=== PATIENT | female | born 1945 | race Caucasian/White ===

== ENCOUNTER 2016-07-28 08:20 | Emergency (ER) | payer MEDICARE, OTHER ==
--- NOTE | 2016-07-28 08:54 | ERPHSYRPT ---
- History of Present Illness Time Seen by Provider: 07/28/16 08:40 Source: EMS, correction records Exam Limitations: clinical condition Patient Subjective Stated Complaint: ems states pt found at [facility] with a 41 blood sugar. ems states pt was administered glucagon per correction staff. repeat accucheck in Er 114. Triage Nursing Assessment: PT PINK, WARM, DRY. ALERT AND ORIENTED X2. 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 SPEACH NORMAL. Physician History: PATIENT WITH HISTORY OF TYPE 2 DIABETES, RECENTLY HOSPITALIZED FOR INFLUENZA A WITH PNEUMONIA DEVELOPED ALTERED MENTAL STATUS AT [facility], HAD ACCUCHECK OF 41, GLUCAGON GIVEN AND PATIENT MUCH MORE ALERT. PATIENT DENIES COMPLAINTS. DENIES, HEADACHE, DYSPNEA, CHEST PAIN, NAUSEA, EMESIS OR DIARRHEA. Timing/Duration: today Severity: moderate Character of Deficits: other (ALTERED MENTAL STATUS) Deficits: bed-ridden, weak Baseline/Normal Cognition: poor alertness Current Cognition: alert oriented x 3 Baseline Gait: unable to walk Associated Symptoms: denies symptoms Allergies/Adverse Reactions: ranitidine Allergy (Verified 07/28/16 08:34) Home Medications: Lisinopril 5 mg [Zestril 5 MG] 5 mg PO [facility] 09/29/12 [History] Metoprolol Succinate 50 mg [Toprol Xl 50 MG] 50 mg PO [facility] 09/29/12 [ History] Montelukast Sodium 10 mg [Singulair 10 MG] 10 mg PO [facility] 09/29/12 [History] Docusate Sodium [Stool Softener] 50 mg PO HS 11/20/12 [History] Insulin Detemir [Levemir] 15 unit SQ [facility] 11/20/12 [History] Diclofenac Sodium [Voltaren] 25 mg PO BID 07/04/13 [History] Acetaminophen 325 mg [Tylenol 325 mg] 650 mg PO Q4HPRN PRN 07/24/16 [ History] Aspirin 81 mg PO DAILY 07/24/16 [History] Bumetanide 1 mg [Bumex 1 mg] 0.5 mg PO QAM 07/24/16 [History] Carbidopa/Levodopa/Entacapone* [Stalevo 150 Tablet] 1 tab PO BID 07/24/16 [ History] Gabapentin 400 mg [Neurontin 400 MG] 400 mg PO BID 07/24/16 [History] Glucagon 1 mg [GlucaGen 1 MG] 1 mg IM UD PRN 07/24/16 [History] Hydrocodone/Acetaminophen [Hydrocodon-Acetaminophen 5-325] 1 tab PO BID [History] Insulin Aspart [NovoLOG Insulin] 1 unit SQ QID PRN PRN 07/24/16 [History] Insulin Detemir [Levemir] 10 unit SQ HS 07/24/16 [History] Polyethylene Glycol 3350 17 gm [Miralax Powder 17GM PACKET] 17 gm PO UD 07/24 [History] Simvastatin 10 mg PO HS 07/24/16 [History] Hx Tetanus, Diphtheria Vaccination/Date Given: Yes (UNKNOWN) Hx Influenza Vaccination/Date Given: Yes Hx Pneumococcal Vaccination/Date Given: Yes Immunizations Up to Date: Yes - Review of Systems Constitutional: No Fever, No Chills Eyes: No Symptoms Ears, Nose, & Throat: No Symptoms Respiratory: No Symptoms, No Cough, No Dyspnea Cardiac: No Symptoms, No Chest Pain, No Edema, No Syncope Abdominal/Gastrointestinal: No Symptoms, No Abdominal Pain, No Nausea, No Vomiting, No Diarrhea Genitourinary Symptoms: No Symptoms, No Dysuria Musculoskeletal: No Symptoms, No Back Pain, No Neck Pain Skin: No Symptoms, No Rash Neurological: Other (CONFUSION), No Dizziness, No Focal Weakness, No Sensory Changes Psychological: No Symptoms Endocrine: No Symptoms All Other Systems: Reviewed and Negative - Past Medical History Pertinent Past Medical History: Yes Neurological History: No Pertinent History, Other ENT History: Cataracts Cardiac History: Arrhythmia, High Cholesterol, Hypertension Respiratory History: COPD Endocrine Medical History: Diabetes Type II Musculoskeletal History: Fractures, Osteoarthritis GI Medical History: No Pertinent History History: No Pertinent History Psycho-Social History: Anxiety Female Reproductive Disorders: No Pertinent History - Past Surgical History Past Surgical History: Yes Neuro Surgical History: No Pertinent History Cardiac: No Pertinent History, Vascular Surgery Respiratory: No Pertinent History Gastrointestinal: No Pertinent History Genitourinary: No Pertinent History Musculoskeletal: Orthopedic Surgery Female Surgical History: No Pertinent History Other Surgical History: cataract surgery on left eye; right hip surgery; left leg vein surgery - Social History Smoking Status: Never smoker Exposure to second hand smoke: No Drug Use: none Patient Lives Alone: No - Female History Hx Now: No - Nursing Vital Signs Nursing Vital Signs: Initial Vital Signs Temperature 94.8 F Temperature Source Rectal Pulse Rate 81 Respiratory Rate 18 Blood Pressure [Right Arm] 137/64 Pain Intensity 0 - [place] Coma Scale Best Eye Response ([place]): (4) open spontaneously Best Verbal Response ([place]): (5) oriented Best Motor Response ([place]): (6) obeys commands [place] Total: 15 - Physical Exam General Appearance: no apparent distress, alert Eye Exam: bilateral eye: PERRL, EOMI Ears, Nose, Throat Exam: normal ENT inspection, moist mucous membranes Neck Exam: normal inspection, non-tender, supple Respiratory: normal breath sounds, lungs clear, airway intact, No respiratory distress Cardiovascular: regular rate/rhythm, No edema Gastrointestinal: soft, No tenderness, No distention Back Exam: normal inspection Extremity Exam: normal inspection, No pedal edema Peripheral Pulses: carotid (R): 2+, carotid (L): 2+, femoral (R): 2+, femoral (L ): 2+, dorsalis-pedis (R): 2+, dorsalis-pedis (L): 2+ 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, 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 Exam: normal hearing, tongue midline Coordination/Gait: normal finger to nose, normal gait Motor/Sensory: no motor deficit, no sensory deficit DTR: bicep (R): 2+, bicep (L): 2+, tricep (R): 2+, tricep (L): 2+, knee (R): 2+ , knee (L): 2+, ankle (R): 2+, ankle (L): 2+ Skin Exam: normal color, warm, dry, No rash SpO2 Interpretation: normal SpO2: 97 Oxygen Delivery: Room Air Ordered Tests: Active Orders 24 hr Category Date Time Status Accucheck STAT Care 07/28/16 08:51 Active Switch Adjuster STAT Care 07/28/16 08:51 Active EKG-ER Only STAT Care 07/28/16 08:51 Active IV Insertion STAT Care 07/28/16 08:51 Active cath [Cath for Specimen-Straight] STAT Care 07/28/16 08:55 Active 1800 Calorie ADA Diet 07/28/16 Lunch Active CBC W DIFF Stat Lab 07/28/16 08:40 Completed CMP Stat Lab 07/28/16 08:40 Completed Manual Differential NC Stat Lab 07/28/16 08:40 Completed UA Stat Lab 07/28/16 08:55 Completed Lab/Rad Data: Laboratory Result Diagrams 07/28/16 08:40 07/28/16 08:40 Laboratory Results 07/28/16 07/28/16 07/28/16 Range/Units 08:55 08:40 08:40 WBC 7.3 (4.0-10.5) K/mm3 RBC 3.92 L (4.1-5.4) M/mm3 Hgb 11.4 L (12.0-16.0) gm/dl Hct 36.0 (35-47) % MCV 91.8 (78-100) fl MCH 29.0 (26-32) pg MCHC 31.7 L (32-36) g/dl RDW 12.5 (11.5-14.0) % Plt Count 183 (150-450) K/mm3 MPV 12.0 H (6-9.5) fl Sodium 139 (136-145) mEq/L Potassium 4.0 (3.5-5.1) mEq/L Chloride 104 (98-107) mEq/L Carbon Dioxide 28.2 (21-32) mEq/L Anion Gap 10.3 (5-15) MEQ/L BUN 19 (9-20) mg/dL Creatinine 0.71 (0.55-1.30) mg/dl Estimated GFR > 60 ML/MIN Glucose 139 H (70-110) MG/DL Calcium 8.6 (8.5-10.1) mg/dL Total Bilirubin 0.4 (0.2-1.0) mg/dL AST 29 (15-37) U/L ALT < 6 L (12-78) U/L Alkaline Phosphatase 108 (46-116) U/L Serum Total Protein 6.2 L (6.4-8.2) gm/dL Albumin 2.5 L (3.4-5.0) g/dL Ur Collection Type CLEAN CATCH Urine Color YELLOW (YELLOW) Urine Appearance CLEAR (CLEAR) Urine pH 6.0 (5-6) Ur Specific [place] 1.020 (1.005-1.025) Urine Protein NEGATIVE (Negative) Urine Glucose (UA) NEGATIVE (NEGATIVE) mg/dL Urine Ketones NEGATIVE (NEGATIVE) Urine Nitrite NEGATIVE (NEGATIVE) Urine Bilirubin NEGATIVE (NEGATIVE) Urine Urobilinogen 0.2 (0-1) mg/dL Urine WBC (Auto) NEGATIVE (NEGATIVE) Urine RBC (Auto) NEGATIVE (0-5) Hansel/ul Specimen Received [id number] - Progress Progress Note: 07/28/16 10:34 PATIENT GIVEN 1800 ADA MEAL, POST ACCUCHECK 185 Counseled pt/family regarding: lab results, diagnosis, need for follow-up - Departure Time of Disposition: 11:00 Departure Disposition: Home Clinical Impression: HYPOGLYCEMIA Condition: Stable Critical Care Time: No Referrals: CUAUHTEMOC DE LA GARZA [Primary Care Provider] - Additional Instructions: FOLLOW ACCUCHECKS AFTER MEALS AND AT BEDTIME. FOLLOWUP WITH YOUR FAMILY PHYSICIAN THIS WEEK. RETURN TO EMERGENCY FOR LOW BLOOD GLUCOSE.
[2016-07-28 08:58] LABS: Mean Cell Volume 91.8 fl (78-100); Platelet Count 183 K/mm3 (150-450); Red Blood Count 3.92 M/mm3 (4.1-5.4); Red Cell Distribution Width 12.5 % (11.5-14.0); White Blood Count 7.3 K/mm3 (4.0-10.5)
[2016-07-28 09:08] LABS: ALBUMIN 2.5 g/dL (3.4-5.0); ALKALINE PHOSPHATASE 108 U/L (46-116); ANION GAP 10.3 MEQ/L (5-15); BILIRUBIN,TOTAL 0.4 mg/dL (0.2-1.0); BLOOD UREA NITROGEN 19 mg/dL (9-20); CHLORIDE 104 mEq/L (98-107); Carbon Dioxide 28.2 mEq/L (21-32); Glucose 139 MG/DL (70-110); SGOT/AST 29 U/L (15-37); SODIUM 139 mEq/L (136-145); Total Protein 6.2 gm/dL (6.4-8.2)
[2016-07-28 09:21] LABS: SGPT/ALT < 6 U/L (12-78)
[2016-07-28 09:32] LABS: Collection Type CLEAN CATCH
[2016-07-28 09:33] LABS: COMPLETE URINE MICROSCOPIC? NO
[2016-07-28 10:38] VITALS: O2SAT 97
[2016-07-28 11:16] VITALS: BP 122/80; PULSE 83
[2016-07-28 11:30] LABS: ANISOCYTOSIS 1+; Poikilocytosis 1+; Total Cells Counted 100
== END 2016-07-28 11:05 ==
LOC: ED 08:20
DX: E11.649 Type 2 diabetes mellitus with hypoglycemia without coma (principal); I10 Essential (primary) hypertension; R41.82 Altered mental status, unspecified; Z79.84 Long term (current) use of oral hypoglycemic drugs; Z79.4 Long term (current) use of insulin
CPT/HCPCS: 36000; 36415; 80053; 81002; 82962; 85025; 93005; 93041; 99284; P9612

== ENCOUNTER 2016-08-06 00:57 | Inpatient (IN) | payer MEDICARE, OTHER ==
[2016-08-06] MEDS ORDERED: FEVERALL 650 MG ONE (01:13)
[2016-08-06] MEDS ORDERED: DUONEB 0.5-3 MG/3 ml Neb IH ONE ×2 (01:24→01:38)
[2016-08-06] MEDS ORDERED: Sodium Chloride 0.9% 1000 ML 1,000 ML IV SCH (01:30)
--- NOTE | 2016-08-06 01:32 | ERPHSYRPT ---
- History of Present Illness Time Seen by Provider: 08/06/16 01:27 Source: patient Exam Limitations: clinical condition Physician History: This is a 71-year-old white female with history of arrhythmia, hyperlipidemia high blood pressure, COPD, diabetes. She is brought from the senior living with complaint that the patient has been having fever she has a cough she's been refusing to eat. Patient has been treated for influenza she has also been treated for influenza, and pneumonia. Past medical history includes cataracts, arrhythmia, hyperlipidemia, high blood pressure, COPD, diabetes, fractures, osteoarthritis, anxiety. Past surgical history includes cataracts, hip surgery on the right, left vein surgery. Timing/Duration: today Severity: moderate Modifying Factors: Improves With: other (patient not eating). Worsens With: eating Associated Symptoms: cough, fever, other (patient not eating at the senior living has a cough), No nausea, No vomiting, No abdominal pain, No shortness of breath, No heartburn, No diaphoresis, No chills, No chest pain, No headaches, No loss of appetite, No malaise, No rash, No syncope, No seizure, No weakness Allergies/Adverse Reactions: ranitidine Allergy (Verified 08/06/16 02:04) Home Medications: Lisinopril 5 mg [Zestril 5 MG] 5 mg PO [facility] 09/29/12 [History] Metoprolol Succinate 50 mg [Toprol Xl 50 MG] 50 mg PO [facility] 09/29/12 [ History] Montelukast Sodium 10 mg [Singulair 10 MG] 10 mg PO [facility] 09/29/12 [History] Docusate Sodium [Stool Softener] 50 mg PO HS 11/20/12 [History] Insulin Detemir [Levemir] 15 unit SQ [facility] 11/20/12 [History] Diclofenac Sodium [Voltaren] 25 mg PO BID 07/04/13 [History] Acetaminophen 325 mg [Tylenol 325 mg] 650 mg PO Q4HPRN PRN 07/24/16 [ History] Aspirin 81 mg PO DAILY 07/24/16 [History] Bumetanide 1 mg [Bumex 1 mg] 0.5 mg PO QAM 07/24/16 [History] Carbidopa/Levodopa/Entacapone* [Stalevo 150 Tablet] 1 tab PO BID 07/24/16 [ History] Gabapentin 400 mg [Neurontin 400 MG] 400 mg PO BID 07/24/16 [History] Glucagon 1 mg [GlucaGen 1 MG] 1 mg IM UD PRN 07/24/16 [History] Hydrocodone/Acetaminophen [Hydrocodon-Acetaminophen 5-325] 1 tab PO BID [History] Insulin Aspart [NovoLOG Insulin] 1 unit SQ QID PRN PRN 07/24/16 [History] Insulin Detemir [Levemir] 10 unit SQ HS 07/24/16 [History] Polyethylene Glycol 3350 17 gm [Miralax Powder 17GM PACKET] 17 gm PO UD 07/24 [History] Simvastatin 10 mg PO HS 07/24/16 [History] Hx Tetanus, Diphtheria Vaccination/Date Given: Yes (UNKNOWN) Hx Influenza Vaccination/Date Given: Yes Hx Pneumococcal Vaccination/Date Given: Yes - Review of Systems Constitutional: Fever, Other (patient not eating at the senior living as a cough) , No Chills, No Fatigue, No Lethargy, No Malaise, No Night Sweats, No Weakness, No Weight Loss Eyes: No Symptoms Ears, Nose, & Throat: No Symptoms, No Ear Pain, No Ear Discharge, No Hearing Changes, No Tinnitus, No Nose Pain, No Nose Congestion, No Nose Discharge, No Sinus Drainage, No Epistaxis, No Mouth Pain, No Mouth Swelling, No Loose Teeth, No Throat Pain, No Throat Swelling, No Hoarse, No Painful Swallowing, No Snoring , No Stridor Respiratory: Cough, No Cyanosis, No Dyspnea, No Dyspnea on Exertion (BYRD), No Stridor, No Wheezing Cardiac: No Chest Pain, No Edema, No Syncope Abdominal/Gastrointestinal: Other (not eating at the senior living), No Abdominal Pain, No Nausea, No Vomiting, No Diarrhea, No Constipation, No Hematemesis, No Hematochezia, No Melena, No Dysphagia, No Appetite Changes Genitourinary Symptoms: No Dysuria Musculoskeletal: No Back Pain, No Neck Pain Skin: No Rash Neurological: No Dizziness, No Focal Weakness, No Sensory Changes Psychological: No Symptoms Endocrine: No Symptoms All Other Systems: Unable due to condition (patient denies complaints patient has obvious cough review of systems from senior living records) - Past Medical History Pertinent Past Medical History: Yes Neurological History: No Pertinent History, Other ENT History: Cataracts Cardiac History: Arrhythmia, High Cholesterol, Hypertension Respiratory History: COPD Endocrine Medical History: Diabetes Type II Musculoskeletal History: Fractures, Osteoarthritis GI Medical History: No Pertinent History History: No Pertinent History Psycho-Social History: Anxiety Female Reproductive Disorders: No Pertinent History - Past Surgical History Past Surgical History: Yes Neuro Surgical History: No Pertinent History Cardiac: No Pertinent History, Vascular Surgery Respiratory: No Pertinent History Gastrointestinal: No Pertinent History Genitourinary: No Pertinent History Musculoskeletal: Orthopedic Surgery Female Surgical History: No Pertinent History Other Surgical History: cataract surgery on left eye; right hip surgery; left leg vein surgery - Social History Smoking Status: Never smoker Exposure to second hand smoke: No Drug Use: none Patient Lives Alone: No - Female History Hx Now: No - Nursing Vital Signs Nursing Vital Signs: Initial Vital Signs Temperature 99.8 F Temperature Source Rectal Pulse Rate 100 Respiratory Rate 20 Blood Pressure [] 105/43 Pain Intensity 0 - Physical Exam General Appearance: other (elderly white to lie on her right side opens eyes and speaks somewhat pale in appearance) Eye Exam: PERRL/EOMI, eyes nml inspection Ears, Nose, Throat Exam: normal ENT inspection, TMs normal, pharynx normal, moist mucous membranes Neck Exam: normal inspection, non-tender, supple, full range of motion Respiratory Exam: diminished breath sounds, rhonchi Cardiovascular Exam: tachycardia (heart tacchycardic without murmer) Gastrointestinal/Abdomen Exam: soft, normal bowel sounds, No tenderness, No mass Back Exam: normal inspection, normal range of motion, No CVA tenderness, No vertebral tenderness Extremity Exam: normal inspection, normal range of motion, pelvis stable Neurologic Exam: cooperative, crm consultant II-XII nml as tested, No alert (patient appears to be somnolent opens eyes and arouses easily), No oriented x 3 ( patient oriented to herself) Skin Exam: pale Lymphatic Exam: No adenopathy SpO2 Interpretation: normal (93%) - Course Nursing assessment & vital signs reviewed: Yes EKG Interpreted by Me: RATE (104 bpm), Sinus Tach, NORMAL AXIS, Other (EKG moderate amount of artifact, sinus tachycardia, 104 bpm, normal axis, no acute ST or T wave changes) - Radiology Exams Chest X-ray Interpretation: Interpreted by me, Other (hyperinflated chest no infiltrates, no pneumothorax) Ordered Tests: Active Orders 24 hr Category Date Time Status Sports Anchor STAT Care 08/06/16 01:24 Completed EKG-ER Only STAT Care 08/06/16 01:24 Active [place] [Catheter-[place]mond] STAT Care 08/06/16 02:21 Active IV Insertion STAT Care 08/06/16 01:42 Active Oxygen-ED Only NASAL CANNULA 2 lpm Care 08/06/16 01:24 Active CHEST 1 VIEW (PORTABLE) Stat Exams 08/06/16 01:25 Taken BLOOD CULTURE Stat Lab 08/06/16 01:50 Received CBC W DIFF Stat Lab 08/06/16 01:40 Completed CMP Stat Lab 08/06/16 01:40 Completed CULTURE,SPUTUM Stat Lab 08/06/16 01:43 Ordered CULTURE,URINE Stat Lab 08/06/16 01:30 Received Lactic Acid Urgent Lab 08/06/16 01:24 Completed Manual Differential NC Stat Lab 08/06/16 01:40 Completed NT PRO BNP Stat Lab 08/06/16 01:40 Completed UA Stat Lab 08/06/16 01:30 Completed VENOUS BLOOD GAS Urgent Lab 08/06/16 01:24 Completed Respiratory Nebulizer STAT RT 08/06/16 01:26 Active Medication Summary Generic Name Dose Route Start Last Admin Trade Name Freq PRN Reason Stop Dose Admin Sodium Chloride 1,000 mls @ 100 mls/hr 08/06/16 01:30 08/06/16 02:07 Sodium Chloride 0.9% 1000 Ml IV 09/05/16 01:29 100 mls/hr .Q10H ABIOLA Administration Ceftriaxone Sodium/Dextrose 50 mls @ 100 mls/hr 08/06/16 03:20 08/06/16 03:21 Rocephin 1 Gm-D5w 50 Ml Bag IV 08/06/16 03:49 100 mls/hr STAT ONE Administration Sodium Chloride 500 mls @ 999 mls/hr 08/06/16 03:21 08/06/16 03:21 Sodium Chloride 0.9% 1000 Ml IV 08/06/16 03:51 999 mls/hr .Q31M STA Administration Discontinued Medications Generic Name Dose Route Start Last Admin Trade Name Freq PRN Reason Stop Dose Admin Acetaminophen Confirm 08/06/16 01:13 Feverall 650 Mg Administered 08/06/16 01:14 Dose 650 mg .ROUTE .STK-MED ONE Albuterol/Ipratropium 3 ml 08/06/16 01:24 08/06/16 01:41 Duoneb 0.5-3 Mg/3 Ml Neb IH 08/06/16 01:25 3 ml STAT ONE Administration Albuterol/Ipratropium Confirm 08/06/16 01:38 Duoneb 0.5-3 Mg/3 Ml Neb Administered 08/06/16 01:39 Dose 3 ml IH .STK-MED ONE Sodium Chloride Confirm 08/06/16 02:06 Sodium Chloride 0.9% 1000 Ml Administered 08/06/16 02:07 Dose 1,000 mls @ ud .ROUTE .STK-MED ONE Lab/Rad Data: Laboratory Result Diagrams 08/06/16 01:40 08/06/16 01:40 Laboratory Results 08/06/16 08/06/16 08/06/16 Range/Units 01:40 01:40 01:40 WBC 14.5 H (4.0-10.5) K/mm3 RBC 3.07 L (4.1-5.4) M/mm3 Hgb 9.0 L (12.0-16.0) gm/dl Hct 28.8 L (35-47) % MCV 93.8 (78-100) fl MCH 29.3 (26-32) pg MCHC 31.3 L (32-36) g/dl RDW 12.9 (11.5-14.0) % Plt Count 269 (150-450) K/mm3 MPV 11.3 H (6-9.5) fl Segmented Neutrophils 88 H (36.0-66.0) % Lymphocytes (Manual) 3 L (24-44) % Monocytes (Manual) 9 (0.0-12.0) % Differential Comment ABNORMAL Platelet Estimate NORMAL (NORMAL) Anisocytosis 1+ VBG pH (7.32-7.42) VBG pCO2 at Pat Temp (42-55) mm/Hg VBG pO2 at Pat Temp (25-40) mm/Hg VBG HCO3 (22-28) meq/L VBG O2 Sat (Dean) (95-100) VBG Base Excess (-2.0-2.0) VBG Hemoglobin VBG Carboxyhemoglobin (0.0-6.9) % T HGB POC Potassium (3.5-5.1) Sodium 136 (136-145) mEq/L Potassium 5.4 H (3.5-5.1) mEq/L Chloride 104 (98-107) mEq/L Carbon Dioxide 21.2 (21-32) mEq/L Anion Gap 16.3 H (5-15) MEQ/L BUN 29 H (9-20) mg/dL Creatinine 1.12 (0.55-1.30) mg/dl Estimated GFR 51 ML/MIN Glucose 292 H (70-110) MG/DL Lactic Acid (0.4-2.0) Calcium 8.0 L (8.5-10.1) mg/dL Total Bilirubin 0.3 (0.2-1.0) mg/dL AST 11 L (15-37) U/L ALT < 6 L (12-78) U/L Alkaline Phosphatase 112 (46-116) U/L NT-Pro-B Natriuret Pep 983 H (0-125) pg/ml Serum Total Protein 5.3 L (6.4-8.2) gm/dL Albumin 2.0 L (3.4-5.0) g/dL Ur Collection Type Urine Color (YELLOW) Urine Appearance (CLEAR) Urine pH (5-6) Ur Specific [place] (1.005-1.025) Urine Protein (Negative) Urine Glucose (UA) (NEGATIVE) mg/dL Urine Ketones (NEGATIVE) Urine Nitrite (NEGATIVE) Urine Bilirubin (NEGATIVE) Urine Urobilinogen (0-1) mg/dL Urine WBC (Auto) (NEGATIVE) Urine RBC (Auto) (0-5) Hansel/ul Specimen Received 08/06/16 08/06/16 Range/Units 01:30 01:24 WBC (4.0-10.5) K/mm3 RBC (4.1-5.4) M/mm3 Hgb (12.0-16.0) gm/dl Hct (35-47) % MCV (78-100) fl MCH (26-32) pg MCHC (32-36) g/dl RDW (11.5-14.0) % Plt Count (150-450) K/mm3 MPV (6-9.5) fl Segmented Neutrophils (36.0-66.0) % Lymphocytes (Manual) (24-44) % Monocytes (Manual) (0.0-12.0) % Differential Comment Platelet Estimate (NORMAL) Anisocytosis VBG pH 7.39 (7.32-7.42) VBG pCO2 at Pat Temp 37 L (42-55) mm/Hg VBG pO2 at Pat Temp 36 (25-40) mm/Hg VBG HCO3 22.4 (22-28) meq/L VBG O2 Sat (Dean) 79.3 L (95-100) VBG Base Excess -2.3 L (-2.0-2.0) VBG Hemoglobin 6.5 L* VBG Carboxyhemoglobin 2.4 (0.0-6.9) % T HGB POC Potassium 5.4 H (3.5-5.1) Sodium (136-145) mEq/L Potassium (3.5-5.1) mEq/L Chloride (98-107) mEq/L Carbon Dioxide (21-32) mEq/L Anion Gap (5-15) MEQ/L BUN (9-20) mg/dL Creatinine (0.55-1.30) mg/dl Estimated GFR ML/MIN Glucose (70-110) MG/DL Lactic Acid 0.9 (0.4-2.0) Calcium (8.5-10.1) mg/dL Total Bilirubin (0.2-1.0) mg/dL AST (15-37) U/L ALT (12-78) U/L Alkaline Phosphatase (46-116) U/L NT-Pro-B Natriuret Pep (0-125) pg/ml Serum Total Protein (6.4-8.2) gm/dL Albumin (3.4-5.0) g/dL Ur Collection Type CATH Urine Color YELLOW (YELLOW) Urine Appearance SLIGHTLY CLOUDY (CLEAR) Urine pH 5.0 (5-6) Ur Specific [place] 1.015 (1.005-1.025) Urine Protein NEGATIVE (Negative) Urine Glucose (UA) NEGATIVE (NEGATIVE) mg/dL Urine Ketones SMALL-15 (NEGATIVE) Urine Nitrite NEGATIVE (NEGATIVE) Urine Bilirubin NEGATIVE (NEGATIVE) Urine Urobilinogen 0.2 (0-1) mg/dL Urine WBC (Auto) NEGATIVE (NEGATIVE) Urine RBC (Auto) NEGATIVE (0-5) Hansel/ul Specimen Received 08/06/16:0130 - Progress Progress: improved Progress Note: 08/06/16 01:33 This is a 71-year-old white female brought from the senior living with complaint of a cough and the fever she has recently been treated for pneumonia and influenza. She apparently has been refusing medications today also not eating. On arrival patient is a somewhat pale in appearance she prefers to lie on her right side she will open her eyes and speak if asked to do so. Patient has a loose cough she has some scattered rales in her lungs and also decreased breath sounds. Patient will follow command she is oriented to herself 08/06/16 03:08 Patient more somnolent. Notified by the patient's nurse that her blood pressure has come down to 83/53 had been 118/57 earlier Patient having diarrhea. Patient's hemoglobin is 9 and 28.8, hemoglobin was 8.9 yesterday BNP is elevated at 983 EKG sinus tach 10 4 bpm normal axis Will give patient IV normal fluid bolus call has been put out to Dr. De La Garza. 08/06/16 03:21 9Patient's blood pressure rechecked by nurses blood pressure now 105/43 pulse is 101 C. difficile cultures have been obtained by nurses and C. difficile was ordered. I've contacted Dr. De La Garza the patient's primary physician she requests patient be put on antibiotics Will put patient on Rocephin Dr. De La Garza will follow-up on the C. difficile cultures Patient will be given a 500 mL normal saline bolus and then turned back down to 100 mils per hour. - Departure Time of Disposition: 03:26 Departure Disposition: Observation (place on observation, ICU, Dr. De La Garza) Clinical Impression: COPD with exacerbation, Weakness Fever Qualifiers: Fever type: unspecified Qualified Code(s): R50.9 - Fever, unspecified Condition: Fair Critical Care Time: No Referrals: CUAUHTEMOC DE LA GARZA [Primary Care Provider] - Instructions: Chronic Obstructive Pulmonary Disease
[2016-08-06 01:56] LABS: Mean Cell Volume 93.8 fl (78-100); Mean Corpuscular Hemoglobin 29.3 pg (26-32); Mean Platelet Volume 11.3 fl (6-9.5); Platelet Count 269 K/mm3 (150-450); Red Blood Count 3.07 M/mm3 (4.1-5.4); Red Cell Distribution Width 12.9 % (11.5-14.0); White Blood Count 14.5 K/mm3 (4.0-10.5)
[2016-08-06 01:59] LABS: Lactic Acid 0.9 (0.4-2.0); VBG BASE EXCESS -2.3 (-2.0-2.0); VBG CARBOXYHEMOGLOBIN 2.4 % T HGB (0.0-6.9); VBG HCO3- 22.4 meq/L (22-28); VBG O2 SATURATION 79.3 (95-100); VBG POTASSIUM 5.4 (3.5-5.1); VBG pH 7.39 (7.32-7.42)
[2016-08-06 02:00] LABS: VBG HEMOGLOBIN 6.5
[2016-08-06] MEDS ORDERED: Sodium Chloride 0.9% 1000 ML 1,000 ML ONE (02:06)
[2016-08-06 02:29] LABS: ALKALINE PHOSPHATASE 112 U/L (46-116); ANION GAP 16.3 MEQ/L (5-15); BILIRUBIN,TOTAL 0.3 mg/dL (0.2-1.0); BLOOD UREA NITROGEN 29 mg/dL (9-20); CHLORIDE 104 mEq/L (98-107); Carbon Dioxide 21.2 mEq/L (21-32); Glucose 292 MG/DL (70-110); Potassium 5.4 mEq/L (3.5-5.1); SGOT/AST 11 U/L (15-37); SODIUM 136 mEq/L (136-145); Total Protein 5.3 gm/dL (6.4-8.2)
[2016-08-06 02:40] LABS: SGPT/ALT < 6 U/L (12-78)
[2016-08-06 02:40] LABS: COMPLETE URINE MICROSCOPIC? NO; Collection Type CATH
[2016-08-06 03:11] LABS: Total Cells Counted 100
[2016-08-06 03:12] LABS: ANISOCYTOSIS 1+; Platelet Estimate NORMAL (NORMAL)
[2016-08-06] MEDS ORDERED: ROCEPHIN 1 Gm-D5w 50 ml Bag** 50 ML IV ONE ×2 (03:20→03:22)
[2016-08-06] MEDS ORDERED: DUONEB 0.5-3 MG/3 ml Neb IH PRN (04:34)
[2016-08-06] MEDS ORDERED: TYLENOL 325 MG PO PRN (04:34)
[2016-08-06] MEDS ORDERED: FEVERALL 650 MG PR ONE (04:53)
[2016-08-06 09:08] LABS: Mean Cell Volume 93.4 fl (78-100); Mean Corpuscular Hemoglobin 28.9 pg (26-32); Mean Platelet Volume 10.8 fl (6-9.5); Platelet Count 261 K/mm3 (150-450); Red Blood Count 3.01 M/mm3 (4.1-5.4); Red Cell Distribution Width 12.9 % (11.5-14.0); White Blood Count 12.2 K/mm3 (4.0-10.5)
[2016-08-06] MEDS: FLAGYL 500 MG IVPB 100 ML IV SCH ×3 (09:08→21:22)
[2016-08-06] MEDS: Sodium Chloride 0.9% 1000 ML 1,000 ML IV SCH (09:08)
--- NOTE | 2016-08-06 09:09 | XRAY ---
Indication: Loss of consciousness. Multiple contiguous axial images obtained through the head without contrast. Comparison: November 21, 2012. Stable age-appropriate global atrophy, mild periventricular degenerative micro-ischemia bilaterally, benign physiologic basal ganglia calcifications, and anatomic variant for cavum septum pellucidum. New 8 mm focus of pontine hypoattenuation without mass effect probable ischemia of uncertain chronicity. No acute intracranial hemorrhage, abnormal extra-axial fluid collection, or mass effect. Bony calvarium intact. Visualized paranasal sinuses and mastoid air cells are essentially clear. Impression: 1. New subcentimeter pontine hypoattenuation, possible ischemia of uncertain chronicity. MRI may yield further information if clinically warranted. 2. Normal age-related changes including atrophy and degenerative micro-ischemia. CT DI 31.36
[2016-08-06 09:35] LABS: ANION GAP 10.7 MEQ/L (5-15); Carbon Dioxide 25.7 mEq/L (21-32); Potassium 4.9 mEq/L (3.5-5.1)
--- NOTE | 2016-08-06 09:42 | XRAY ---
Indication: Cough and diarrhea. Comparison: July 24, 2016. Portable chest unchanged again hyperinflated and clear. Heart and mediastinal structures within normal limits for AP portable technique. No new/acute findings. Impression: Stable nonacute hyperinflated chest.
--- NOTE | 2016-08-06 13:59 | HP ---
HISTORY OF PRESENT ILLNESS: The patient is unable to provide history. The history has been gathered from review of patient's chart and discussion with nursing staff. Shazia Grossman is a 71 year old woman with past medical history of hypertension, coronary artery disease, congestive heart failure, hyperlipidemia, chronic obstructive pulmonary disease, diabetes mellitus, osteoarthritis, chronic back pain and anxiety. She is a resident of [facility] where she was recently treated where she was in her usual stated of health on 08/01/2016 when she was evaluated by me for routine follow up. She did complain of some upper respiratory tract infection/bronchitis symptoms for which she was placed on antibiotics. I was contacted by senior living staff late last night stating that since yesterday evening the patient has been feeling increasingly weaker. Also she has been having some fever and has been refusing to eat. Also they stated that the patient had refused to take all of her evening medications except gabapentin. The patient was transferred to the emergency room where she was noted to have blood pressure 105/46, temperature 101.1F and respiratory rate 20. Also she had reported some diarrhea. After initial work up in emergency room she was treated with normal saline fluid bolus 1 liter, Rocephin 1 gm IV x1, Tylenol 650 mg p.o. x1, albuterol nebulization. Upon evaluation in the emergency room, the patient was noted to be drowsy but arousal, oriented to self per emergency room note. The patient was admitted to ICU for further monitoring and management. Since admission to ICU, she has continued IV fluids, IV antibiotics. She did have some diarrhea. She continued to remain mostly drowsy. Earlier today she underwent repeat labs, additional work, CT. Eventually her mental status had improved some where she was able to wake up better per ICU nursing. At the time of this evaluation she is drowsy but easily arousable when called. Answers simple Yes or No type questions. Denies pain. Denies increased shortness of breath. PAST MEDICAL HISTORY: As noted above. PAST SURGICAL HISTORY: Fracture. Cataract surgery left eye. Right hip surgery. Leg vein surgery. ALLERGIES: RANITIDINE. MEDICATIONS: Current medications were reviewed. FAMILY HISTORY: Noncontributory to current admission. SOCIAL HISTORY: The patient is a resident of a senior living. No history of illicit drug use or alcohol abuse. No history of smoking. REVIEW OF SYSTEMS: Limited due to patient's mental status. However she denies pain or increased shortness of breath. History of fever, generalized weakness, cough, chest congestion for the last few days and also history of diarrhea. History of poor p.o. intake per history from senior living. PHYSICAL EXAMINATION: An elderly woman lying comfortably in bed, not in acute distress. VITAL SIGNS: Blood pressure 87/50, heart rate 97, respiratory rate 11, temperature 99.1F, temperature max 101.1F. HEENT: Pallor is present. NECK: No JVD is present. CVS: S1, S2 present. RESPIRATORY: Breath sounds are bilaterally diminished and clear to auscultation anteriorly. ABDOMEN: Obese, soft, nontender. NEURO: The patient is drowsy but arouses when called. Answers simple Yes or No type questions, follows few simple commands, was able to squeeze my hand some but it appears weaker. She was able to raise the right lower extremity against gravity. EXTREMITIES: Trace edema on bilateral lower extremities. LABORATORY DATA AND TESTS: Labs on admission were notable for CBC with white blood cell 14.5. BMP was notable for potassium 5.4, glucose 292, BUN 29, creatinine 1.12. NT-BNP was 983. Venous blood gas showed pH of 7.39. Lactic acid was 0.9. UA was essentially negative. EKG showed sinus tachycardia, presence of artifact. Labs from today showed CBC with white blood cell 12.1, hemoglobin 8.7, hematocrit 28, PLT 261,000. Today's CMP showed sodium 141, potassium 4.9, chloride 109, bicarb 25.7, glucose 149, BUN 25, creatinine 1.03. Liver function tests were unremarkable. Stool Clostridium difficile is positive. Chest x-ray showed stable nonacute hyperinflated chest. CT of head showed new subcentimeter pontine hypoattenuation possibly ischemia of uncertain chronicity, normal age related changes including atrophy degenerative microischemia. ASSESSMENT: A 71 year old woman with impression: 1) ALTERED MENTAL STATUS. 2) HYPOTENSION. 3) ACUTE BRONCHITIS. 4) RECENT HISTORY OF EXPOSURE TO FLU. 5) HISTORY OF HYPERTENSION/CONGESTIVE HEART FAILURE. 6) DIABETES MELLITUS. 7) CHRONIC BACK PAIN. 8) ANXIETY. 9) CLOSTRIDIUM DIFFICILE COLITIS. PLAN: Will continue IV fluids, broad spectrum IV antibiotics, continue to monitor neurologic status and hemodynamic status closely. Will obtain baseline troponin, echo. MRI has been requested. The patient was started on Flagyl earlier today. Discussed with patients nurse.
[2016-08-06] MEDS: VENELEX OINTMENT TP SCH ×2 (14:17→22:40)
--- NOTE | 2016-08-06 15:51 | XRAY ---
Indication: Loss of consciousness. Brain stem lesion on same-day CT head. Axial MRI brain was performed without contrast using T1, T2, FLAIR, diffusion, and ADC sequences. Comparison: None Several of the sequences are slightly degraded by motion artifact. There is age-appropriate global atrophy and mild bilateral periventricular degenerative micro-ischemia. Small left ganesh lesion follows CSF signal on all sequences favoring remote infarct. No acute intracranial hemorrhage, abnormal extra-axial fluid collection, or mass effect. Fourth ventricle is midline without hydrocephalus. Anatomic variant for cavum septum pellucidum. 7/8 cranial nerve complex bilaterally symmetric. Normal flow-void signal within the major intracerebral circulation. Paranasal sinuses are clear. Impression: 1. Motion artifact. 2. Left ganesh lesion favors remote infarct. 3. Atrophy and degenerative micro-ischemia within normal limits for patient's age. 4. No acute intracranial abnormalities or evidence for evolving large vessel territory stroke.
[2016-08-06] MEDS ORDERED: Glutose 15 GM ORAL GEL PO PRN (16:56)
[2016-08-06] MEDS ORDERED: GlucaGen 1 MG IM PRN (16:56)
[2016-08-06] MEDS ORDERED: D50W 50 ml Abboject IV PRN (16:56)
[2016-08-06] MEDS: ROCEPHIN 1 Gm-D5w 50 ml Bag** 50 ML IV SCH (22:28)
[2016-08-06] MEDS ORDERED: VANCOCIN 1 GM VIAL*** 1 GM in Sodium Chloride 0.9% 250 ML 250 ML IV ONE (23:45)
[2016-08-06] MEDS ORDERED: Vancomycin 1GM/ Ns 250ML*** 250 ML IV ONE (23:49)
[2016-08-07] MEDS: Sodium Chloride 0.9% 1000 ML 1,000 ML IV SCH ×2 (03:02→17:11)
[2016-08-07 05:51] LABS: Mean Cell Volume 94.5 fl (78-100); Mean Corpuscular Hemoglobin 28.7 pg (26-32); Mean Platelet Volume 10.9 fl (6-9.5); Platelet Count 256 K/mm3 (150-450); Red Blood Count 2.89 M/mm3 (4.1-5.4); Red Cell Distribution Width 12.7 % (11.5-14.0); White Blood Count 10.2 K/mm3 (4.0-10.5)
[2016-08-07] MEDS: FLAGYL 500 MG IVPB 100 ML IV SCH ×3 (05:52→23:14)
[2016-08-07 06:02] LABS: ALBUMIN 1.7 g/dL (3.4-5.0); ALKALINE PHOSPHATASE 96 U/L (46-116); ANION GAP 14.2 MEQ/L (5-15); BILIRUBIN,TOTAL 0.2 mg/dL (0.2-1.0); BLOOD UREA NITROGEN 10 mg/dL (9-20); CHLORIDE 109 mEq/L (98-107); Glucose 222 MG/DL (70-110); Potassium 4.5 mEq/L (3.5-5.1); SGOT/AST 10 U/L (15-37); SODIUM 140 mEq/L (136-145); Total Protein 4.6 gm/dL (6.4-8.2)
[2016-08-07 06:50] LABS: SGPT/ALT 11 U/L (12-78)
[2016-08-07] MEDS ORDERED: PHARMACY DOSING REQUIRED: VANCOMYCIN IV ONE (06:57)
[2016-08-07 07:37] LABS: BAND 5 % (0.0-2.0); Eosinophil 1 % (0.00-3.0); Total Cells Counted 100
[2016-08-07 07:38] LABS: Platelet Estimate NORMAL (NORMAL)
[2016-08-07] MEDS: VENELEX OINTMENT TP SCH ×2 (10:14→22:22)
[2016-08-07] MEDS: VANCOCIN 1 GM VIAL*** 1 GM in Sodium Chloride 0.9% 250 ML 250 ML IV SCH ×2 (10:14→23:55)
--- NOTE | 2016-08-07 14:41 | PROG NOTE ---
DATE: 08/07/16 Chart reviewed. Events noted. At the time of this evaluation, the patient is alert, awake, and comfortable. Answer simple questions. Denies pain. Denies increased shortness of breath. VITALS: BP 116/99, heart rate 101, respiratory rate 18, temperature 99.3, temperature maximum 100 degrees Fahrenheit. HEENT: Pallor present. NECK: No JVD present. CVS: S1 and S2 present. RESPIRATORY: Breath sounds bilaterally diminished. ABDOMEN: Soft, nontender. NEURO: She is alert and awake. Answers simple questions. Tremors of both hands (chronic). EXTREMITIES: Reveals no edema on bilateral lower extremities. LABORATORY DATA: Labs from today showed CBC with WBC of 10.2, Hgb 8.3, Hct 27.8, platelets 256, neutrophils 79, bands 5. CMP shows glucose 222. MRI of brain from 08/06/16 showed left ganesh lesion favoring remote infarct, atrophy and degenerative micro-ischemia within normal limits, no acute intracranial abnormalities or evidence of evolving large vessel territory stroke. Echo report is pending. Blood cultures and urine cultures have shown no growth so far. Medications were reviewed. ASSESSMENT: 71 y/o woman with impression: 1. ALTERED MENTAL STATUS - RESOLVED. 2. HYPOTENSION - RESOLVED. 3. ACUTE BRONCHITIS. 4. CLOSTRIDIUM DIFFICILE COLITIS. 5. HISTORY OF HYPERTENSION/CONGESTIVE HEART FAILURE. 6. CHRONIC BACK PAIN. 7. DIABETES MELLITUS. 8. ANXIETY. PLAN: 1. Patient appears to be hemodynamically stable. Will cut back on IV fluids. 2. Continue broad spectrum IV antibiotics. 3. Neurologically, she appears to have improved. Continue to monitor neurological status. Also, MRI was negative for acute changes. As noted. 4. Speech Therapy has advised patient to stay NPO for now and modified barium swallow has been ordered for tomorrow. Will continue to hold PO medications/feeding until the results of those are obtained. 5. Continue to follow-up lab cultures. Discussed with patient's nurse, Lara.
[2016-08-07] MEDS: ROCEPHIN 1 Gm-D5w 50 ml Bag** 50 ML IV SCH (22:18)
[2016-08-07] MEDS: NovoLOG Insulin SQ PRN (23:29)
[2016-08-08] MEDS: FLAGYL 500 MG IVPB 100 ML IV SCH ×3 (06:18→23:39)
[2016-08-08] MEDS: NovoLOG Insulin SQ PRN ×4 (08:21→22:37)
[2016-08-08] MEDS ORDERED: TROUGH DRUG LEVELS IJ ONE (09:30)
[2016-08-08] MEDS: VANCOCIN 1 GM VIAL*** 1 GM in Sodium Chloride 0.9% 250 ML 250 ML IV SCH (10:29)
[2016-08-08] MEDS: VENELEX OINTMENT TP SCH ×2 (10:38→22:44)
--- NOTE | 2016-08-08 11:12 | PROG NOTE ---
DATE: 08/08/16 Chart reviewed. Events noted. Attempt was made to feed patient earlier today. However, she did have difficulty with swallowing. Her barium swallow is still awaited. At the time of this evaluation, she is alert, awake, and comfortable. Denies complaints. VITALS: BP 128/62, heart rate 109, respiratory rate 20, temperature 97.8, O2 saturations 100% on 2 liters. HEENT: Pallor is present. NECK: No JVD is present. CVS: S1 and S2 present. RESPIRATORY: Breath sounds bilaterally diminished and clear to auscultation anteriorly. ABDOMEN: Soft, nontender. NEURO: She is alert and awake. Answers simple questions. Tremors of both hands (chronic). EXTREMITIES: Reveals no edema on bilateral lower extremities. LABORATORY DATA: There were no new labs today. Blood culture from 08/06/16 was reported to grow gram positive cocci in pairs in 1 out of 2 sets. Second blood culture is negative. Urine culture has revealed no growth so far. Medications were reviewed. ASSESSMENT AND PLAN: 71 y/o woman with impression: 1. ACUTE BRONCHITIS. 2. CLOSTRIDIUM DIFFICILE COLITIS. 3. QUESTIONABLE GRAM POSITIVE BACTEREMIA. 4. HYPERTENSION/CONGESTIVE HEART FAILURE. 5. CHRONIC BACK PAIN. 6. DIABETES MELLITUS. 7. ANXIETY. PLAN: 1. Will follow blood cultures. If final cultures remain negative, will discontinue vancomycin. Continue other antibiotics per current management plan. 2. Patient seems to be hemodynamically stable. Will obtain follow-up labs in AM. 3. Likely discharge back to [facility] in the next 1-2 days if continues to improve. 4. Will follow-up barium swallow. Discussed with patient. She seems to be in understanding. Discussed with patients nurseVanna.
--- NOTE | 2016-08-08 11:57 | XRAY ---
Indication: Dysphagia. Modified barium swallow study was performed by the Department of speech therapy with fluoroscopic assistance provided. Patient ingested multiple consistencies of liquids. Full report and recommendations will be reported separately. Approximately 1 minute 27 seconds fluoroscopy used.
[2016-08-08] MEDS: ROCEPHIN 1 Gm-D5w 50 ml Bag** 50 ML IV SCH (22:37)
[2016-08-09] MEDS: VANCOCIN 1 GM VIAL*** 1 GM in Sodium Chloride 0.9% 250 ML 250 ML IV SCH ×2 (00:59→08:48)
[2016-08-09 05:55] LABS: Mean Platelet Volume 11.1 fl (6-9.5); Platelet Count 277 K/mm3 (150-450); Red Blood Count 2.99 M/mm3 (4.1-5.4); Red Cell Distribution Width 12.9 % (11.5-14.0); White Blood Count 14.7 K/mm3 (4.0-10.5)
[2016-08-09] MEDS: FLAGYL 500 MG IVPB 100 ML IV SCH ×3 (05:55→22:47)
[2016-08-09 06:25] LABS: ALBUMIN 1.9 g/dL (3.4-5.0); ANION GAP 26.4 MEQ/L (5-15); BILIRUBIN,TOTAL 0.3 mg/dL (0.2-1.0); Total Protein 4.9 gm/dL (6.4-8.2)
[2016-08-09 07:22] LABS: Carbon Dioxide 7.7 mEq/L (21-32)
[2016-08-09] MEDS: Sodium Chloride 0.9% 1000 ML 1,000 ML IV SCH ×2 (08:46→14:27)
[2016-08-09] MEDS: VENELEX OINTMENT TP SCH ×2 (08:46→22:47)
[2016-08-09] MEDS: NovoLOG Insulin SQ PRN ×2 (08:47→11:45)
[2016-08-09 11:50] LABS: Potassium 4.5 mEq/L (3.5-5.1)
[2016-08-09 11:56] LABS: Carbon Dioxide 9.2 mEq/L (21-32)
[2016-08-09 13:22] LABS: A-aADO2 40; ARTERIAL BLOOD GAS BASE EXCESS -16.3 (-2.0-2.0); ARTERIAL BLOOD GAS FIO2 24 %; ARTERIAL BLOOD GAS PO2 106 mmHg (75-100); ARTERIAL BLOOD GAS pH 7.26 (7.35-7.45)
--- NOTE | 2016-08-09 16:08 | ECHO ---
DATE: 08/06/16 A transthoracic echocardiograph examination with color Doppler study was done. INDICATION: Shortness of breath, increased NT Pro BNP. IMPRESSION: 1. NO REGIONAL WALL MOTION ABNORMALITY WITH ESTIMATED GLOBAL LEFT VENTRICULAR EJECTION FRACTION OF 60%. 2. MILD TRICUSPID REGURGITATION WITH RIGHT VENTRICULAR SYSTOLIC PRESSURE OF 45 MM OF MERCURY SUGGESTIVE OF MILD TO MODERATE PULMONARY HYPERTENSION. 3. TRACE MITRAL REGURGITATION. 4. LEFT VENTRICULAR HYPERTROPHY. 5. LEFT ATRIAL ENLARGEMENT. The left ventricle was visualized and demonstrated adequate motion of all the segments with estimated global left ventricular ejection fraction of 60%. There is mild left ventricular hypertrophy. The mitral valve was seen and this opens adequately. There is trace mitral regurgitation. The left atrium is mildly enlarged. The aortic valve opens adequately. The right-sided chambers are normal. There is mild tricuspid regurgitation with right ventricular systolic pressure of 45 mm Hg suggestive of mild to moderate pulmonary hypertension.
[2016-08-09 20:34] LABS: ANION GAP 21.6 MEQ/L (5-15); Carbon Dioxide 16.2 mEq/L (21-32); Potassium 4.3 mEq/L (3.5-5.1)
[2016-08-09] MEDS ORDERED: FEVERALL 650 MG PR PRN (20:57)
[2016-08-09] MEDS ORDERED: BUMEX 1 MG IV ONE (21:00)
[2016-08-09] MEDS: Zosyn 3.375GM/100 Ml D5W 100 ML IV SCH (21:13)
--- NOTE | 2016-08-09 22:13 | XRAY ---
Indication: Altered mental status. Multiple contiguous axial images obtained through the head without contrast. Comparison: August 06, 2016. Study limited due to motion artifact. Grossly stable global atrophy, mild periventricular degenerative microischemia, brainstem remote infarct, and cavum septum pellucidum. No acute intracranial hemorrhage, abnormal extra-axial fluid collection, or mass effect. Fourth ventricle is midline. Bony calvarium intact. Visualized paranasal sinuses and mastoid air cells are clear. Impression: Motion artifact. Grossly stable nonacute senile brain. Comment: Preliminary interpretation was made by [facility]. No critical discrepancy. CTDI 71.01
--- NOTE | 2016-08-09 22:17 | XRAY ---
Indication: Low-grade fever. Comparison: August 06, 2016. Portable chest unchanged again hyperinflated and clear. Heart is not enlarged for AP portable technique. No new/acute cardiopulmonary findings. Comment: Preliminary interpretation was made by [facility]. No discrepancy.
[2016-08-10] MEDS: NOVOLIN R INSULIN (FOR DRIPS)** 100 UNITS in Sodium Chloride 0.9% 100 ML IVPB 100 ML IV PRN (01:09)
[2016-08-10] MEDS: Zosyn 3.375GM/100 Ml D5W 100 ML IV SCH ×5 (04:10→21:53)
[2016-08-10] MEDS: FLAGYL 500 MG IVPB 100 ML IV SCH ×3 (05:17→21:53)
[2016-08-10 06:29] LABS: Mean Corpuscular Hemoglobin 28.9 pg (26-32); Mean Platelet Volume 10.1 fl (6-9.5); Platelet Count 265 K/mm3 (150-450); Red Blood Count 2.87 M/mm3 (4.1-5.4); Red Cell Distribution Width 13.5 % (11.5-14.0); White Blood Count 16.3 K/mm3 (4.0-10.5)
[2016-08-10 06:42] LABS: ALBUMIN 1.8 g/dL (3.4-5.0); ALKALINE PHOSPHATASE 94 U/L (46-116); ANION GAP 19.7 MEQ/L (5-15); BILIRUBIN,TOTAL 0.3 mg/dL (0.2-1.0); BLOOD UREA NITROGEN 18 mg/dL (9-20); CHLORIDE 116 mEq/L (98-107); Glucose 216 MG/DL (70-110); Potassium 3.5 mEq/L (3.5-5.1); SGOT/AST 9 U/L (15-37); SODIUM 149 mEq/L (136-145); Total Protein 4.3 gm/dL (6.4-8.2)
[2016-08-10 07:04] LABS: SGPT/ALT < 6 U/L (12-78)
[2016-08-10] MEDS: Sodium Chloride 0.9% 1000 ML 1,000 ML IV SCH (08:34)
--- NOTE | 2016-08-10 08:36 | PCM.NOTE ---
Date and Time: 08/10/16829 Subjective Assessment: Patient is sleeping comfortably, - Review of Systems Constitutional: No Fever, No Chills Eyes: No Symptoms Ears, Nose, & Throat: No Symptoms Respiratory: No Cough, No Short Of Breath Cardiac: No Chest Pain, No Edema, No Syncope Abdominal/Gastrointestinal: No Abdominal Pain, No Nausea, No Vomiting, No Diarrhea Genitourinary Symptoms: No Dysuria Musculoskeletal: No Back Pain, No Neck Pain Skin: No Rash Neurological: No Dizziness, No Focal Weakness, No Sensory Changes Psychological: No Symptoms Endocrine: No Symptoms Hematologic/Lymphatic: No Symptoms Immunological/Allergic: No Symptoms Objective Exam General Appearance: no apparent distress, alert Neurologic Exam: alert, oriented x 3, cooperative, normal mood/affect, nml cerebellar function, sensation nml, No motor deficits Skin Exam: normal color, warm, dry Eye Exam: PERRL, EOMI, eyes nml inspection Ears, Nose, Throat Exam: normal ENT inspection, pharynx normal, moist mucous membranes Neck Exam: normal inspection, non-tender, supple, full range of motion Respiratory Exam: normal breath sounds, lungs clear, No respiratory distress Cardiovascular Exam: regular rate/rhythm, normal heart sounds Gastrointestinal/Abdomen Exam: soft, No tenderness, No mass Extremity Exam: normal inspection, normal range of motion Back Exam: normal inspection, normal range of motion, No CVA tenderness, No vertebral tenderness Pelvic Exam: deferred Rectal Exam: deferred OBJECTIVE DATA Vital Signs: Vital Signs - 24 hr Temp Pulse Resp BP Pulse Ox 08/10/16 06:00 97 H 18 131/66 97 08/10/16 05:00 96 H 16 08/10/16 04:00 98.8 F 96 H 18 143/96 99 08/10/16 00:00 98.4 F 110 H 16 130/59 99 08/09/16 22:00 100 H 153/58 99 08/09/16 20:00 99.4 F 104 H 16 167/95 99 08/09/16 16:00 99.5 F 92 H 15 155/83 95 08/09/16 14:17 99 08/09/16 12:00 99.9 F 113 H 24 124/54 100 08/09/16 08:00 18 08/09/16 07:33 99.8 F 121 H 25 H 146/100 Oxygen-Last 24 hours O2 Percentage 2 Liters = 28% O2 Percentage 2 Liters = 28% O2 Percentage 2 Liters = 28% O2 Percentage 2 Liters = 28% O2 Percentage 2 Liters = 28% O2 Percentage 2 Liters = 28% O2 Percentage 1 Liter = 24% O2 Percentage 1 Liter = 24% Pain Assessment - Last Documented Pain Scale Used [facility] Intake and Output: Intake & Output 08/07/16 08/08/16 08/09/16 08/10/16 11:59 11:59 11:59 12:59 Intake Total 1632 1692 1511 1020 Output Total 1300 750 950 950 Balance 332 942 561 70 Weight 65.9 kg 66.905 kg 68.039 kg 64.4 kg Lab Results: Accuchecks Date 08/10/16 Date 08/10/16 Date 08/10/16 Date 08/10/16 Date 08/10/16 Date 08/10/16 Date 08/09/16 Date 08/09/16 Date 08/09/16 Time 07:00 Time 06:00 Time 05:03 Time 04:00 Time 03:00 Time 00:10 Time 22:17 Time 17:06 Time 11:30 Accucheck Value: 174 Accucheck Value: 196 Accucheck Value: 246 Accucheck Value: 240 Accucheck Value: 285 Accucheck Value: 280 Accucheck Value: 207 Accucheck Value: 176 Accucheck Value: 319 Lab Results-Last 24 Hours 08/09/16 08/09/16 08/09/16 Range/Units 10:36 11:08 11:25 WBC (4.0-10.5) K/mm3 RBC (4.1-5.4) M/mm3 Hgb (12.0-16.0) gm/dl Hct (35-47) % MCV (78-100) fl MCH (26-32) pg MCHC (32-36) g/dl RDW (11.5-14.0) % Plt Count (150-450) K/mm3 MPV (6-9.5) fl Puncture Site RIGHT BRACHIAL pCO2 20 L* (35-45) mmHg pO2 106 H (75-100) mmHg Base Excess -16.3 L (-2.0-2.0) O2 Saturation 95.5 (94-100) g/dF ABG pH 7.26 L (7.35-7.45) ABG HCO3 9.0 L* (22-28) ABG O2 Sat (Measured) 97.0 (95-100) % Santo Test NOT APPLICABLE A-a Gradient 40 a/A Ratio 0.73 Hemoglobin 9.2 Carboxyhemoglobin 0.0 (0.0-6.9) % THgb Methemoglobin 1.4 (1.4-1.5) % Potassium 4.6 4.5 (3.5-5.1) Temperature 37.0 C POC O2 Flow Rate 24 % Sodium 144 (136-145) mEq/L Chloride 110 H (98-107) mEq/L Carbon Dioxide 9.2 L* (21-32) mEq/L Anion Gap 30.0 H (5-15) MEQ/L BUN 14 (9-20) mg/dL Creatinine 1.72 H (0.55-1.30) mg/dl Estimated GFR 31 ML/MIN Glucose 322 H (70-110) MG/DL Lactic Acid 1.1 (0.4-2.0) Calcium 8.1 L (8.5-10.1) mg/dL Total Bilirubin (0.2-1.0) mg/dL AST (15-37) U/L ALT (12-78) U/L Alkaline Phosphatase (46-116) U/L Serum Total Protein (6.4-8.2) gm/dL Albumin (3.4-5.0) g/dL Random Vancomycin (10.0-20.0) UG/ML 08/09/16 08/10/16 08/10/16 Range/Units 20:11 06:00 06:00 WBC 16.3 H (4.0-10.5) K/mm3 RBC 2.87 L (4.1-5.4) M/mm3 Hgb 8.3 L (12.0-16.0) gm/dl Hct 26.7 L (35-47) % MCV 93.0 (78-100) fl MCH 28.9 (26-32) pg MCHC 31.1 L (32-36) g/dl RDW 13.5 (11.5-14.0) % Plt Count 265 (150-450) K/mm3 MPV 10.1 H (6-9.5) fl Puncture Site pCO2 (35-45) mmHg pO2 (75-100) mmHg Base Excess (-2.0-2.0) O2 Saturation (94-100) g/dF ABG pH (7.35-7.45) ABG HCO3 (22-28) ABG O2 Sat (Measured) (95-100) % Santo Test A-a Gradient a/A Ratio Hemoglobin Carboxyhemoglobin (0.0-6.9) % THgb Methemoglobin (1.4-1.5) % Potassium 4.3 (3.5-5.1) Temperature C POC O2 Flow Rate % Sodium 146 H (136-145) mEq/L Chloride 114 H (98-107) mEq/L Carbon Dioxide 16.2 L (21-32) mEq/L Anion Gap 21.6 H (5-15) MEQ/L BUN 15 (9-20) mg/dL Creatinine 2.06 H (0.55-1.30) mg/dl Estimated GFR 25 ML/MIN Glucose 181 H (70-110) MG/DL Lactic Acid (0.4-2.0) Calcium 8.4 L (8.5-10.1) mg/dL Total Bilirubin (0.2-1.0) mg/dL AST (15-37) U/L ALT (12-78) U/L Alkaline Phosphatase (46-116) U/L Serum Total Protein (6.4-8.2) gm/dL Albumin (3.4-5.0) g/dL Random Vancomycin 35.6 H* (10.0-20.0) UG/ML 08/10/16 Range/Units 06:00 WBC (4.0-10.5) K/mm3 RBC (4.1-5.4) M/mm3 Hgb (12.0-16.0) gm/dl Hct (35-47) % MCV (78-100) fl MCH (26-32) pg MCHC (32-36) g/dl RDW (11.5-14.0) % Plt Count (150-450) K/mm3 MPV (6-9.5) fl Puncture Site pCO2 (35-45) mmHg pO2 (75-100) mmHg Base Excess (-2.0-2.0) O2 Saturation (94-100) g/dF ABG pH (7.35-7.45) ABG HCO3 (22-28) ABG O2 Sat (Measured) (95-100) % Santo Test A-a Gradient a/A Ratio Hemoglobin Carboxyhemoglobin (0.0-6.9) % THgb Methemoglobin (1.4-1.5) % Potassium 3.5 (3.5-5.1) Temperature C POC O2 Flow Rate % Sodium 149 H (136-145) mEq/L Chloride 116 H (98-107) mEq/L Carbon Dioxide 17.0 L (21-32) mEq/L Anion Gap 19.7 H (5-15) MEQ/L BUN 18 (9-20) mg/dL Creatinine 2.47 H (0.55-1.30) mg/dl Estimated GFR 20 ML/MIN Glucose 216 H (70-110) MG/DL Lactic Acid (0.4-2.0) Calcium 8.3 L (8.5-10.1) mg/dL Total Bilirubin 0.3 (0.2-1.0) mg/dL AST 9 L (15-37) U/L ALT < 6 L (12-78) U/L Alkaline Phosphatase 94 (46-116) U/L Serum Total Protein 4.3 L (6.4-8.2) gm/dL Albumin 1.8 L (3.4-5.0) g/dL Random Vancomycin (10.0-20.0) UG/ML Radiology Exams: Radiology Procedures Category Date Time Status CHEST 1 VIEW (PORTABLE) Routine Exams 08/09/16 17:21 Completed HEAD WITHOUT CONTRAST [CT] Stat Exams 08/09/16 17:17 Completed MODIFIED BARIUM SWALLOW EXAM Routine Exams 08/08/16 13:00 Completed Multi-Disciplinary Progress Notes: Multi-Disciplinary Progress Notes 08/09/16 13:55 Pharmacy Note by Milind Todd VANCOMYCIN DOSING NOTE CREATININE UP TO 1.72 FOR EST CREATININE CLEARANCE 31 ML/MIN WILL HOLD EVENING DOSE OF VANCOMYCIN AND CHECK LEVEL AM OF 08/10/16 Initialized on 08/09/16 13:55 - END OF NOTE Assessment/Plan (1) Bacteremia Current Visit: Yes Status: Acute Assessment & Plan: Chief Complaint Diagnosis dysphagia Allergies Allergy/AdvReac Type Severity Reaction Status Date / Time ranitidine Allergy Verified 08/06/16 02:04 Vital Signs (Last 24 hours) Temp Pulse Resp BP Pulse Ox 08/10/16 06:00 97 H 18 131/66 97 03/12/17 05:00 96 H 16 08/10/16 04:00 98.8 F 96 H 18 143/96 99 08/10/16 00:00 98.4 F 110 H 16 130/59 99 08/09/16 22:00 100 H 153/58 99 08/09/16 20:00 99.4 F 104 H 16 167/95 99 08/09/16 16:00 99.5 F 92 H 15 155/83 95 08/09/16 14:17 99 08/09/16 12:00 99.9 F 113 H 24 124/54 100 08/09/16 08:00 18 08/09/16 07:33 99.8 F 121 H 25 H 146/100 Home Medications Medication Instructions Recorded Confirmed Last Taken Type Cephalexin Mh 250 mg [Keflex 250 250 mg PO TID 08/06/16 08/06/16 Unknown History mg] Guaifenesin/Codeine Phosphate 5 ml PO Q6H PRN PRN 08/06/16 08/06/16 Unknown History [Guaiatussin AC Liquid] Na Phos,M-B/Na Phos,Di-Ba [Fleet 118 ml RC DAILY PRN PRN 08/06/16 08/06/16 Unknown History Enema] Current Medications Generic Name Dose Route Start Last Admin Trade Name Freq PRN Reason Stop Dose Admin Acetaminophen 650 mg 08/06/16 04:34 Tylenol 325 Mg PO 09/05/16 04:33 Q4H PRN PRN PAIN AND/OR FEVER Acetaminophen 650 mg 08/09/16 20:57 Feverall 650 Mg KS 09/08/16 20:56 Q6HPRN PRN PAIN AND/OR FEVER Albuterol/Ipratropium 3 ml 08/06/16 04:34 Duoneb 0.5-3 Mg/3 Ml Neb IH 09/05/16 04:33 Q4HPRN PRN SHORTNESS OF BREATH/WHEEZING Dextrose 25 ml 08/06/16 16:56 D50w 50 Ml Abboject IV 09/05/16 16:55 UD PRN Glucagon 1 mg 08/06/16 16:56 Glucagen 1 Mg IM 09/05/16 16:55 UD PRN Glucose 15 gm 08/06/16 16:56 Glutose 15 Gm Oral Gel PO 09/05/16 16:55 UD PRN Sodium Chloride 1,000 mls @ 100 mls/hr 08/06/16 04:34 08/09/16 14:27 Sodium Chloride 0.9% 1000 Ml IV 09/05/16 04:33 40 mls/hr .Q10H ABIOLA Administration Metronidazole 100 mls @ 100 mls/hr 08/06/16 09:00 08/10/16 05:17 Flagyl 500 Mg Ivpb IV 09/05/16 08:59 100 mls/hr Q8HT ABIOLA Administration Insulin Human Regular 100 101 mls @ 2 mls/hr 08/09/16 17:17 08/10/16 01:09 units/ Sodium Chloride IV 09/08/16 17:16 2 mls/hr .Q24H PRN Administration HYPERGLYCEMIA Protocol Titrate Piperacillin Sod/Tazobactam Sod 100 mls @ 100 mls/hr 08/10/16 14:00 Zosyn 3.375gm/100 Ml D5w IV 09/08/16 20:59 Q8HT ABIOLA Discontinued Medications Generic Name Dose Route Start Last Admin Trade Name Freq PRN Reason Stop Dose Admin Acetaminophen Confirm 08/06/16 01:13 Feverall 650 Mg Administered 08/06/16 01:14 Dose 650 mg .ROUTE .STK-MED ONE Acetaminophen 650 mg 08/06/16 04:53 08/06/16 01:15 Feverall 650 Mg KS 08/06/16 04:54 650 mg STAT ONE Administration Albuterol/Ipratropium 3 ml 08/06/16 01:24 08/06/16 01:41 Duoneb 0.5-3 Mg/3 Ml Neb IH 08/06/16 01:25 3 ml STAT ONE Administration Albuterol/Ipratropium Confirm 08/06/16 01:38 Duoneb 0.5-3 Mg/3 Ml Neb Administered 08/06/16 01:39 Dose 3 ml IH .STK-MED ONE Bumetanide 1 mg 08/09/16 21:00 08/09/16 21:13 Bumex 1 Mg IV 08/09/16 21:01 1 mg STAT ONE Administration Sodium Chloride 1,000 mls @ 100 mls/hr 08/06/16 01:30 08/06/16 02:07 Sodium Chloride 0.9% 1000 Ml IV 09/05/16 01:29 100 mls/hr .Q10H ABIOLA Administration Sodium Chloride Confirm 08/06/16 02:06 Sodium Chloride 0.9% 1000 Ml Administered 08/06/16 02:07 Dose 1,000 mls @ ud .ROUTE .STK-MED ONE Ceftriaxone Sodium/Dextrose 50 mls @ 100 mls/hr 08/06/16 03:20 08/06/16 03:21 Rocephin 1 Gm-D5w 50 Ml Bag IV 08/06/16 03:49 100 mls/hr STAT ONE Administration Sodium Chloride 500 mls @ 999 mls/hr 08/06/16 03:21 08/06/16 03:21 Sodium Chloride 0.9% 1000 Ml IV 08/06/16 03:51 999 mls/hr .Q31M STA Administration Ceftriaxone Sodium/Dextrose Confirm 08/06/16 03:22 Rocephin 1 Gm-D5w 50 Ml Bag Administered 08/06/16 03:23 Dose 50 mls @ ud IV .STK-MED ONE Ceftriaxone Sodium/Dextrose 50 mls @ 100 mls/hr 08/06/16 22:00 08/08/16 22:37 Rocephin 1 Gm-D5w 50 Ml Bag IV 09/05/16 21:59 100 mls/hr Q24H22 ABIOLA Administration Vancomycin HCl 1 gm/ Sodium 250 mls @ 167 mls/hr 08/06/16 23:45 08/07/16 00: 20 Chloride IV 08/07/16 01:14 167 mls/hr ONCE ONE Administration Vancomycin HCl Confirm 08/06/16 23:49 Vancomycin 1gm/ Ns 250ml Administered 08/06/16 23:50 Dose 250 mls @ ud IV .STK-MED ONE Vancomycin HCl 1 gm/ Sodium 250 mls @ 167 mls/hr 08/07/16 10:00 08/09/16 08: 48 Chloride IV 08/09/16 16:00 167 mls/hr Q12H ABIOLA Administration Piperacillin Sod/Tazobactam Sod 100 mls @ 100 mls/hr 08/09/16 21:00 08/10/16 04:28 Zosyn 3.375gm/100 Ml D5w IV 09/08/16 20:59 100 mls/hr Q6HT ABIOLA Administration Insulin Aspart 0 unit 08/06/16 04:34 08/09/16 11:45 Novolog Insulin SQ 09/05/16 04:33 6 unit UD PRN Administration HYPERGLYCEMIA Non-Formulary Medication 1 each 08/07/16 06:57 08/07/16 10:14 Pharmacy Dosing Required: Vancomycin IV 08/07/16 06:58 1 each STAT ONE Administration Intake & Output (Last 24 hours) 08/07/16 08/08/16 08/09/16 08/10/16 11:59 11:59 11:59 12:59 Intake Total 1632 1692 1511 1020 Output Total 1300 750 950 950 Balance 332 942 561 70 Weight 65.9 kg 66.905 kg 68.039 kg 64.4 kg Microbiology Results (Last 24 hours) 08/06/16 01:50 Blood - Final Not Reportable 08/06/16 01:50 Blood Blood Culture - Final NO GROWTH 08/06/16 01:40 Blood - Final 08/06/16 01:40 Blood Blood Culture - Final Enterococcus Faecium Laboratory Results (Last 24 hours) 08/10/16 08/10/16 08/10/16 06:00 06:00 06:00 WBC 16.3 H RBC 2.87 L Hgb 8.3 L Hct 26.7 L MCV 93.0 MCH 28.9 MCHC 31.1 L RDW 13.5 Plt Count 265 MPV 10.1 H Puncture Site pCO2 pO2 Base Excess O2 Saturation ABG pH ABG HCO3 ABG O2 Sat (Measured) Santo Test A-a Gradient a/A Ratio Hemoglobin Carboxyhemoglobin Methemoglobin Potassium 3.5 Temperature POC O2 Flow Rate Sodium 149 H Chloride 116 H Carbon Dioxide 17.0 L Anion Gap 19.7 H BUN 18 Creatinine 2.47 H Estimated GFR 20 Glucose 216 H Lactic Acid Calcium 8.3 L Total Bilirubin 0.3 AST 9 L ALT < 6 L Alkaline Phosphatase 94 Serum Total Protein 4.3 L Albumin 1.8 L Random Vancomycin 35.6 H* 08/09/16 08/09/16 08/09/16 20:11 11:25 11:08 WBC RBC Hgb Hct MCV MCH MCHC RDW Plt Count MPV Puncture Site RIGHT BRACHIAL pCO2 20 L* pO2 106 H Base Excess -16.3 L O2 Saturation 95.5 ABG pH 7.26 L ABG HCO3 9.0 L* ABG O2 Sat (Measured) 97.0 Santo Test NOT APPLICABLE A-a Gradient 40 a/A Ratio 0.73 Hemoglobin 9.2 Carboxyhemoglobin 0.0 Methemoglobin 1.4 Potassium 4.3 4.5 4.6 Temperature 37.0 POC O2 Flow Rate 24 Sodium 146 H 144 Chloride 114 H 110 H Carbon Dioxide 16.2 L 9.2 L* Anion Gap 21.6 H 30.0 H BUN 15 14 Creatinine 2.06 H 1.72 H Estimated GFR 25 31 Glucose 181 H 322 H Lactic Acid Calcium 8.4 L 8.1 L Total Bilirubin AST ALT Alkaline Phosphatase Serum Total Protein Albumin Random Vancomycin 08/09/16 10:36 WBC RBC Hgb Hct MCV MCH MCHC RDW Plt Count MPV Puncture Site pCO2 pO2 Base Excess O2 Saturation ABG pH ABG HCO3 ABG O2 Sat (Measured) Santo Test A-a Gradient a/A Ratio Hemoglobin Carboxyhemoglobin Methemoglobin Potassium Temperature POC O2 Flow Rate Sodium Chloride Carbon Dioxide Anion Gap BUN Creatinine Estimated GFR Glucose Lactic Acid 1.1 Calcium Total Bilirubin AST ALT Alkaline Phosphatase Serum Total Protein Albumin Random Vancomycin Orders (Last 24 hours) Category Date Time Status CHEST 1 VIEW (PORTABLE) Routine Exams 08/09/16 17:21 Completed HEAD WITHOUT CONTRAST [CT] Stat Exams 08/09/16 17:17 Completed ABG [ARTERIAL BLOOD GASES] Stat Lab 08/09/16 11:08 Completed BMP Routine Lab 08/09/16 20:11 Completed BMP Stat Lab 08/09/16 11:25 Completed CBC AM.LAB Lab 08/10/16 06:00 Completed CMP AM.LAB Lab 08/10/16 06:00 Completed Lactic Acid Routine Lab 08/09/16 10:36 Completed Vancomycin,Random Urgent Lab 08/10/16 06:00 Completed Acetaminophen 650 mg [Feverall 650 mg] Med 08/09/16 20:57 Active 650 mg [place] Q6HPRN PRN Bumetanide 1 mg [Bumex 1 mg] Med 08/09/16 21:00 Discontinued 1 mg IV STAT ONE NaCl 0.9% 100Ml [Sodium Chloride 0.9% 100 ML IVPB] 100 Med 03/11/17 17:17 Active ml Insulin Reg Human Rec [Novolin R Insulin (For Drips)* *] 100 units IV Titrate Piperacillin/Tazobactam Premix [Zosyn 3.375GM/100 Ml Med 08/09/16 21:00 Discontinued D5W] 100 ml IV Q6HT Piperacillin/Tazobactam Premix [Zosyn 3.375GM/100 Ml Med 08/10/16 14:00 Active D5W] 100 ml IV Q8HT Transfer Order Routine Transfer 08/09/16 12:56 Completed Patient Care Notes CONTINUFLO W/O FILTER USED FOR FLAGYL 0200 HOURLY IV RECORD, ACCUCHECK, HOURLY ROUNDING CHARTING NOT AVAILABLE DUE TO TIME CHANGE IN DAYLIGHT SAVINGS PAGED DR Stephanie MADISON TO REPORT BS AND NO ORDER FOR INSULIN SLIDING SCALE, ONLY PRN INSULIN DRIP BUT NO FURTHER DRIP ORDERS Dr Stephanie Madison asked that the vancomyacin that had been d/c today at 1400 by pharmacy be restarted now. pharmacy (milind todd) notified of doctor's request. pharmacy also notified of most recent trough which was 20.5. pharmacy states after the trough in the morning, he will decide how much vancomyacin to give to patient and to hold vancomyacin tonight until after trough in am. pt's nurse wendy noel notified of all above stated information. PHONED DR Stephanie MADISON, REPORTED DECREASED URINARY OUTPUT THROUGHOUT DAY, PLACING PATIENT ELIGABLE FOR SEVERE SEPSIS PROTOCOL. REPORTED TEMP OF 99.4, BP 167/95, HR 104. REPORTED PT TAKES BUMEX PO DAILY AT HOME. ALSO REPORTED VANCOMYCIN WAS DISCONTINUED PER PHARMACY AFTER TROUGH LEVEL DRAWN ORDERED D/C ROCEPHIN, START IV ZOSYN. ORDERED 650MG TYLENOL SUPPOSITORY PRN FEVER. ORDERED 1MG IV BUMEX X1. INCREASE NORMAL SALINE TO 100ML/HR. ORDERED TO HAVE PHARMACY RESTART VANCOMYCIN FOR POSITIVE BLOOD CULTURES. VANCOMYCIN DOSING NOTE CREATININE UP TO 1.72 FOR EST CREATININE CLEARANCE 31 ML/MIN WILL HOLD EVENING DOSE OF VANCOMYCIN AND CHECK LEVEL AM OF 08/10/16 pt's daughter called and notified pt is being transfered back to ICU. Pt moved at this time with all belongings. to I [address] Henrique madison called back after she was paged. LA, CMP, and ABG reported. Order to transfer pt to ICU obtained. continue all other orders. slot shift supervisor reported paging Dr. Henrique Madison without response about critical [id number] Dr. Henrique Madison paged again. [phone] Dr. Henrique Madison returned page orders given for lactic acid, all questions answered. pt Co2 critical level of 7.7, called answering service left message for Henrique Madison at [phone], no call back as of this time, passed info on to day shift nurse to follow up. Code(s): R78.81 - BACTEREMIA (2) Type 2 diabetes mellitus Current Visit: Yes Status: Acute Qualifiers: Diabetes mellitus complication status: with hyperglycemia Diabetes mellitus intermediate teacher insulin use: with nursing home use Qualified Code(s): E11.65 - Type 2 diabetes mellitus with hyperglycemia; Z79.4 - jail (current) use of insulin (3) COPD with exacerbation Current Visit: Yes Status: Acute Code(s): J44.1 - CHRONIC OBSTRUCTIVE PULMONARY DISEASE W (ACUTE) EXACERBATION
[2016-08-10] MEDS ORDERED: NovoLOG Insulin SQ PRN (10:23)
[2016-08-10] MEDS ORDERED: K-LYTE 25 MEQ PO PRN (10:23)
[2016-08-10] MEDS: D5W/0.45NS W/ 20mEq KCl 1000 ML 1,000 ML IV SCH ×2 (10:29→17:12)
[2016-08-10] MEDS ORDERED: Lantus Insulin SQ SCH (10:30)
[2016-08-10] MEDS: VENELEX OINTMENT TP SCH ×2 (10:51→21:53)
[2016-08-10 12:43] LABS: BLOOD UREA NITROGEN 17 mg/dL (9-20); Carbon Dioxide 16.5 mEq/L (21-32); Glucose 205 MG/DL (70-110); MAGNESIUM 1.6 mg/dL (1.8-2.4); PHOSPHOROUS 3.2 mg/dL (2.6-4.7)
[2016-08-10] MEDS: Magnesium 1 Gm / 100 Ml D5W*** 100 ML IV PRN ×2 (15:13→16:18)
[2016-08-10] MEDS: POTASSIUM CHLORIDE 20 mEq IN WATER 100ML 100 ML IV PRN ×2 (16:18→18:17)
[2016-08-10 20:39] LABS: ANION GAP 15.8 MEQ/L (5-15); Carbon Dioxide 19.2 mEq/L (21-32); Potassium 4.3 mEq/L (3.5-5.1)
[2016-08-10] MEDS ORDERED: Dextrose 5%/Water IV Soln. 1000 ML 1,000 ML IV ONE (21:24)
[2016-08-10] MEDS ORDERED: DEXTROSE 5% IV SCH (21:30)
[2016-08-10] MEDS ORDERED: WATER IV SCH (21:30)
[2016-08-10] MEDS: Dextrose 5%/Water IV Soln. 1000 ML 1,000 ML IV SCH (21:53)
[2016-08-11 00:46] LABS: ANION GAP 15.8 MEQ/L (5-15); Carbon Dioxide 19.5 mEq/L (21-32); Potassium 4.1 mEq/L (3.5-5.1)
[2016-08-11 04:25] LABS: Mean Cell Volume 91.7 fl (78-100); Mean Platelet Volume 10.1 fl (6-9.5); Platelet Count 254 K/mm3 (150-450); Red Blood Count 3.26 M/mm3 (4.1-5.4); Red Cell Distribution Width 13.6 % (11.5-14.0); White Blood Count 17.3 K/mm3 (4.0-10.5)
[2016-08-11 04:28] LABS: Mean Corpuscular Hemoglobin 29.7 pg (26-32)
[2016-08-11 04:45] LABS: ANION GAP 17.6 MEQ/L (5-15); Potassium 4.2 mEq/L (3.5-5.1)
[2016-08-11 04:57] LABS: MAGNESIUM 2.1 mg/dL (1.8-2.4)
[2016-08-11] MEDS: Dextrose 5%/Water IV Soln. 1000 ML 1,000 ML IV SCH (05:34)
[2016-08-11] MEDS: FLAGYL 500 MG IVPB 100 ML IV SCH ×3 (05:34→22:28)
--- NOTE | 2016-08-11 07:57 | PROG NOTE ---
DATE: 08/09/2016 Chart is reviewed and events noted. Earlier today I was contacted by the patient's nurse regarding her abnormal labs. Additional labs were obtained. Eventually I was also informed by patient's nurse that the patient continues to remain poorly responsive today. The patient was transferred to ICU. At the time of this evaluation the patient is extremely lethargic, difficult to arouse, appears comfortable. PHYSICAL EXAMINATION: VITAL SIGNS: Blood pressure 124/54, heart rate 110, respiratory rate 20, temperature 99.9F. Oxygen saturation 100% on oxygen by nasal cannula at 1 liter/minute. HEENT: Pallor is present. NECK: No JVD is present. CVS: S1, S2 present. RESPIRATORY: Breath sounds are bilaterally diminished. ABDOMEN: Soft. NEURO: The patient is extremely lethargic, difficult to arouse. EXTREMITIES: No edema on bilateral lower extremities. LABORATORY DATA AND TESTS: Labs from today show CBC with white blood cell 14.7, hemoglobin 8.7, hematocrit 28.7, PLT 277,000. Today's ABG showed pH 7.26, pCO2 20, pO2 106. Latest BMP showed sodium 144, potassium 4.5, chloride 110, bicarbonate 9.2, glucose 322, BUN 14, creatinine 1.7. Liver function test unremarkable. Blood cultures from 08/06/2016 grew Enterococcus Faecium in one set. The second set is negative on preliminary exam. Urine cultures have been negative, no growth so far. Modified barium swallow from yesterday was noted. Lactic acid was 1.1. Medications were reviewed. ASSESSMENT: A 71 year old woman with impression: 1) Acute bronchitis. 2) Clostridium difficile colitis. 3) Enterococcus Faecium bacteremia. 4) Chronic back pain. 5) Altered mental status. 6) Diabetes mellitus. 7) Anxiety. PLAN: The patient is admitted to ICU for further monitoring and management. Continue to monitor hemodynamic status, will continue broad spectrum IV antibiotics, will continue to monitor hemodynamic and neurologic status closely. Will repeat CT scan. Low dose insulin drip. Discussed with patient's nurse.
[2016-08-11] MEDS: Zosyn 3.375GM/100 Ml D5W 100 ML IV SCH (08:44)
[2016-08-11 09:48] LABS: ANION GAP 16.4 MEQ/L (5-15); Carbon Dioxide 19.3 mEq/L (21-32); Potassium 3.8 mEq/L (3.5-5.1)
[2016-08-11] MEDS: VENELEX OINTMENT TP SCH ×2 (11:15→22:28)
[2016-08-11] MEDS: POTASSIUM CHLORIDE 20 mEq IN WATER 100ML 100 ML IV PRN ×2 (11:20→13:04)
--- NOTE | 2016-08-11 12:58 | PCM.NOTE ---
Date and Time: 08/11/16 1254 Subjective Assessment: patient is more alert, still very weak. last 24 hours events noted - Review of Systems Constitutional: Lethargy, Weakness, No Fever, No Chills Eyes: No Symptoms Ears, Nose, & Throat: No Symptoms Respiratory: No Cough, No Short Of Breath Cardiac: No Chest Pain, No Edema, No Syncope Abdominal/Gastrointestinal: No Abdominal Pain, No Nausea, No Vomiting, No Diarrhea Genitourinary Symptoms: No Dysuria Musculoskeletal: No Back Pain, No Neck Pain Skin: No Rash Neurological: Lethargy, No Dizziness, No Focal Weakness, No Sensory Changes Psychological: No Symptoms Endocrine: No Symptoms Hematologic/Lymphatic: No Symptoms Immunological/Allergic: No Symptoms Objective Exam General Appearance: no apparent distress, alert Neurologic Exam: alert, oriented x 3, cooperative, normal mood/affect, nml cerebellar function, sensation nml, No motor deficits Skin Exam: normal color, warm, dry Eye Exam: PERRL, EOMI, eyes nml inspection Ears, Nose, Throat Exam: normal ENT inspection, pharynx normal, moist mucous membranes Neck Exam: normal inspection, non-tender, supple, full range of motion Respiratory Exam: diminished breath sounds, crackles/rales, No respiratory distress Cardiovascular Exam: regular rate/rhythm, normal heart sounds Gastrointestinal/Abdomen Exam: soft, No tenderness, No mass Extremity Exam: normal inspection Back Exam: normal inspection, normal range of motion, No CVA tenderness, No vertebral tenderness Pelvic Exam: deferred Rectal Exam: deferred OBJECTIVE DATA Vital Signs: Vital Signs - 24 hr Temp Pulse Resp BP BP Pulse Ox 08/11/16 12:00 97.9 F 94 H 13 154/93 99 08/11/16 09:00 13 08/11/16 08:00 97.2 F 94 H 13 132/69 99 08/11/16 06:44 89 16 100 08/11/16 05:00 16 08/11/16 04:00 98.4 F 96 H 16 144/68 100 08/11/16 02:00 84 24 144/79 99 08/11/16 00:01 98.6 F 94 H 14 164/84 99 08/10/16 22:00 94 H 16 141/90 100 08/10/16 21:00 16 08/10/16 20:28 99 08/10/16 19:55 98.4 F 98 H 26 H 143/76 99 08/10/16 18:00 98.9 F 92 H 12 126/51 99 08/10/16 17:00 97 H 13 08/10/16 14:41 98.9 F 102 H 14 154/64 97 08/10/16 14:00 99.3 F 96 H 12 149/66 96 08/10/16 13:00 96 H 15 Oxygen-Last 24 hours O2 Percentage 2 Liters = 28% O2 Percentage 2 Liters = 28% O2 Percentage 2 Liters = 28% O2 Percentage 2 Liters = 28% O2 Percentage 2 Liters = 28% O2 Percentage 2 Liters = 28% O2 Percentage 2 Liters = 28% O2 Percentage 2 Liters = 28% O2 Percentage 2 Liters = 28% Pain Assessment - Last Documented Pain Scale Used FLACC Intake and Output: Intake & Output 08/09/16 08/10/16 08/11/16 08/12/16 10:59 11:59 11:59 11:59 Intake Total 3773 Output Total 725 Balance 3048 Weight 29.846 kg Lab Results: Accuchecks Date 08/11/16 Date 08/11/16 Date 08/11/16 Date 08/11/16 Date 08/11/16 Date 08/11/16 Date 08/11/16 Date 08/11/16 Date 08/10/16 Date 08/10/16 Date 08/10/16 Date 08/10/16 Date 08/10/16 Date 08/10/16 Date 08/10/16 Date 08/10/16 Date 08/10/16 Date 08/10/16 Date 08/10/16 Date 08/10/16 Date 08/10/16 Date 08/10/16 Time 11:00 Time 10:00 Time 08:00 Time 07:00 Time 06:00 Time 05:00 Time 04:00 Time 03:00 Time 02:00 Time 01:00 Time 23:58 Time 23:00 Time 22:00 Time 21:00 Time 20:20 Time 19:30 Time 17:34 Time 17:34 Time 16:30 Time 15:30 Time 14:30 Time 13:40 Accucheck Value: 153 Accucheck Value: 155 Accucheck Value: 144 Accucheck Value: 164 Accucheck Value: 175 Accucheck Value: 183 Accucheck Value: 175 Accucheck Value: 185 Accucheck Value: 159 Accucheck Value: 147 Accucheck Value: 139 Accucheck Value: 147 Accucheck Value: 155 Accucheck Value: 171 Accucheck Value: 160 Accucheck Value: 178 Accucheck Value: 188 Accucheck Value: 196 Accucheck Value: 198 Accucheck Value: 189 Accucheck Value: 202 Lab Results-Last 24 Hours 08/10/16 08/10/16 08/10/16 Range/Units 12:00 16:15 20:20 WBC (4.0-10.5) K/mm3 RBC (4.1-5.4) M/mm3 Hgb (12.0-16.0) gm/dl Hct (35-47) % MCV (78-100) fl MCH (26-32) pg MCHC (32-36) g/dl RDW (11.5-14.0) % Plt Count (150-450) K/mm3 MPV (6-9.5) fl Sodium Not Reportable 150 H* Potassium Not Reportable 4.3 Chloride Not Reportable 119 H Carbon Dioxide 16.5 L 19.2 L (21-32) mEq/L Anion Gap FUR CLIPPER 15.8 H (5-15) MEQ/L BUN 17 15 (9-20) mg/dL Creatinine 2.60 H 2.51 H (0.55-1.30) mg/dl Estimated GFR 19 20 ML/MIN Glucose 205 H 171 H (70-110) MG/DL Calcium 8.2 L 8.0 L (8.5-10.1) mg/dL Phosphorus 3.2 (2.6-4.7) mg/dL Magnesium 1.6 L (1.8-2.4) mg/dL Random Vancomycin (10.0-20.0) UG/ML 08/10/16 08/11/16 08/11/16 Range/Units 22:14 00:29 04:20 WBC (4.0-10.5) K/mm3 RBC (4.1-5.4) M/mm3 Hgb (12.0-16.0) gm/dl Hct (35-47) % MCV (78-100) fl MCH (26-32) pg MCHC (32-36) g/dl RDW (11.5-14.0) % Plt Count (150-450) K/mm3 MPV (6-9.5) fl Sodium 148 H Potassium 4.4 4.1 Chloride 117 H Carbon Dioxide 19.5 L (21-32) mEq/L Anion Gap 15.8 H (5-15) MEQ/L BUN 14 (9-20) mg/dL Creatinine 2.42 H (0.55-1.30) mg/dl Estimated GFR 21 ML/MIN Glucose 175 H (70-110) MG/DL Calcium 8.0 L (8.5-10.1) mg/dL Phosphorus (2.6-4.7) mg/dL Magnesium (1.8-2.4) mg/dL Random Vancomycin 25.9 H* (10.0-20.0) UG/ML 08/11/16 08/11/16 08/11/16 Range/Units 04:20 04:20 08:05 WBC 17.3 H (4.0-10.5) K/mm3 RBC 3.26 L (4.1-5.4) M/mm3 Hgb 9.7 L (12.0-16.0) gm/dl Hct 29.9 L (35-47) % MCV 91.7 (78-100) fl MCH 29.7 (26-32) pg MCHC 32.4 (32-36) g/dl RDW 13.6 (11.5-14.0) % Plt Count 254 (150-450) K/mm3 MPV 10.1 H (6-9.5) fl Sodium 147 H 146 H Potassium 4.2 3.8 Chloride 115 H 114 H Carbon Dioxide 19.0 L 19.3 L (21-32) mEq/L Anion Gap 17.6 H 16.4 H (5-15) MEQ/L BUN 14 13 (9-20) mg/dL Creatinine 2.46 H 2.31 H (0.55-1.30) mg/dl Estimated GFR 20 22 ML/MIN Glucose 196 H 166 H (70-110) MG/DL Calcium 7.9 L 8.1 L (8.5-10.1) mg/dL Phosphorus (2.6-4.7) mg/dL Magnesium 2.1 (1.8-2.4) mg/dL Random Vancomycin (10.0-20.0) UG/ML Radiology Exams: Radiology Procedures Category Date Time Status CHEST 1 VIEW (PORTABLE) Routine Exams 08/09/16 17:21 Completed HEAD WITHOUT CONTRAST [CT] Stat Exams 08/09/16 17:17 Completed Multi-Disciplinary Progress Notes: Multi-Disciplinary Progress Notes 08/11/16 09:08 Pharmacy Note by Demian Valencia Pharmacy Consult = Antibiotics Current Culture - Enterococcus Facium; Vancomycin and Linezolid Sensative Current Vancomycin Level = 25.9..... Still holding Vancomycin... Level Ordered for tomorrow AM. Sr Cr = 2.46 slight increase today Cr Cl = 9.74 ml/min today Decreasing Zosyn to 2.25 mg q8h. May consider using Linezolid 600 mg iv Q12h in place of Vancomycin. Patient also still currently on Flagyl 100 mg ivpb q8h. Initialized on 08/11/16 09:08 - END OF NOTE Assessment/Plan (1) Enterococcal septicemia Current Visit: Yes Status: Acute Assessment & Plan: sensitive to vanco. 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
[2016-08-11] MEDS: DEXTROSE 5% -NACL 0.9% 1000 ML + KCl 20 MEQ 1,000 ML IV SCH ×2 (13:00→19:48)
[2016-08-11 13:03] LABS: ANION GAP 15.4 MEQ/L (5-15); Carbon Dioxide 19.8 mEq/L (21-32); Potassium 3.9 mEq/L (3.5-5.1)
[2016-08-11] MEDS: Zosyn 2.25 GM 2.25 GM in D5w 100ML Mini Bag 100 ML 100 ML IV SCH ×2 (14:01→21:23)
[2016-08-11] MEDS: NOVOLIN R INSULIN (FOR DRIPS)** 100 UNITS in Sodium Chloride 0.9% 100 ML IVPB 100 ML IV PRN (14:09)
[2016-08-11 16:54] LABS: ANION GAP 16.4 MEQ/L (5-15); Carbon Dioxide 17.2 mEq/L (21-32); Potassium 4.5 mEq/L (3.5-5.1)
[2016-08-11 21:08] LABS: ANION GAP 16.2 MEQ/L (5-15); Carbon Dioxide 18.4 mEq/L (21-32); Potassium 4.7 mEq/L (3.5-5.1)
[2016-08-12 01:12] LABS: Mean Cell Volume 90.7 fl (78-100); Mean Corpuscular Hemoglobin 29.6 pg (26-32); Platelet Count 218 K/mm3 (150-450); Red Blood Count 3.24 M/mm3 (4.1-5.4); Red Cell Distribution Width 13.7 % (11.5-14.0); White Blood Count 11.7 K/mm3 (4.0-10.5)
[2016-08-12 01:32] LABS: ANION GAP 14.7 MEQ/L (5-15); Carbon Dioxide 18.4 mEq/L (21-32); Potassium 4.3 mEq/L (3.5-5.1)
[2016-08-12 04:47] LABS: Eosinophil 1 % (0.00-3.0); Platelet Estimate NORMAL (NORMAL); Total Cells Counted 100
[2016-08-12] MEDS: DEXTROSE 5% -NACL 0.9% 1000 ML + KCl 20 MEQ 1,000 ML IV SCH ×2 (04:52→13:04)
[2016-08-12] MEDS: Zosyn 2.25 GM 2.25 GM in D5w 100ML Mini Bag 100 ML 100 ML IV SCH (05:16)
[2016-08-12] MEDS: FLAGYL 500 MG IVPB 100 ML IV SCH ×2 (05:52→13:06)
[2016-08-12 07:11] LABS: ANION GAP 19.7 MEQ/L (5-15); Potassium 5.1 mEq/L (3.5-5.1)
[2016-08-12 07:20] LABS: Carbon Dioxide 14.5 mEq/L (21-32)
[2016-08-12] MEDS: VENELEX OINTMENT TP SCH (08:54)
[2016-08-12 11:32] LABS: ANION GAP 15.9 MEQ/L (5-15); Carbon Dioxide 17.2 mEq/L (21-32); Potassium 4.6 mEq/L (3.5-5.1)
--- NOTE | 2016-08-12 12:02 | PCM.DS ---
Discharge Summary Date of Admission: 08/06/16 11:00 Admitting Physician: CUAUHTEMOC DE LA GARZA Primary Care Provider: CUAUHTEMOC DE LA GARZA Allergies Allergies ranitidine Allergy (Verified 08/06/16 02:04) Hospital Summary - Hospital Course Hospital Course: Chief Complaint Diagnosis dysphagia Allergies Allergy/AdvReac Type Severity Reaction Status Date / Time ranitidine Allergy Verified 08/06/16 02:04 Vital Signs (Last 24 hours) Temp Pulse Resp BP Pulse Ox 08/12/16 08:48 18 08/12/16 08:00 97.9 F 113 H 18 168/83 97 08/12/16 05:00 13 08/12/16 04:00 106 H 13 135/86 100 08/12/16 01:00 13 08/12/16 00:01 97.6 F 91 H 13 135/75 100 08/11/16 21:00 15 08/11/16 20:00 97.7 F 92 H 14 143/77 100 08/11/16 17:00 15 08/11/16 16:00 97.7 F 98 H 15 140/70 100 08/11/16 14:00 100 08/11/16 13:00 13 08/11/16 12:00 97.9 F 94 H 13 154/93 99 Home Medications Medication Instructions Recorded Confirmed Last Taken Type Cephalexin Mh 250 mg [Keflex 250 250 mg PO TID 08/06/16 08/06/16 Unknown History mg] Guaifenesin/Codeine Phosphate 5 ml PO Q6H PRN PRN 08/06/16 08/06/16 Unknown History [Guaiatussin AC Liquid] Na Phos,M-B/Na Phos,Di-Ba [Fleet 118 ml RC DAILY PRN PRN 08/06/16 08/06/16 Unknown History Enema] Current Medications Generic Name Dose Route Start Last Admin Trade Name Freq PRN Reason Stop Dose Admin Acetaminophen 650 mg 08/06/16 04:34 Tylenol 325 Mg PO 09/05/16 04:33 Q4H PRN PRN PAIN AND/OR FEVER Acetaminophen 650 mg 08/09/16 20:57 Feverall 650 Mg WI 09/08/16 20:56 Q6HPRN PRN PAIN AND/OR FEVER Albuterol/Ipratropium 3 ml 08/06/16 04:34 Duoneb 0.5-3 Mg/3 Ml Neb IH 09/05/16 04:33 Q4HPRN PRN SHORTNESS OF BREATH/WHEEZING Dextrose 25 ml 08/06/16 16:56 D50w 50 Ml Abboject IV 09/05/16 16:55 UD PRN Glucagon 1 mg 08/06/16 16:56 Glucagen 1 Mg IM 09/05/16 16:55 UD PRN Glucose 15 gm 08/06/16 16:56 Glutose 15 Gm Oral Gel PO 09/05/16 16:55 UD PRN Metronidazole 100 mls @ 100 mls/hr 08/06/16 09:00 08/12/16 05:52 Flagyl 500 Mg Ivpb IV 09/05/16 08:59 100 mls/hr Q8HT ABIOLA Administration Insulin Human Regular 100 101 mls @ 2 mls/hr 08/09/16 17:17 08/11/16 14:09 units/ Sodium Chloride IV 09/08/16 17:16 2 mls/hr .Q24H PRN Administration HYPERGLYCEMIA Protocol Titrate Potassium Chloride 100 mls @ 50 mls/hr 08/10/16 10:22 08/11/16 13:04 Potassium Chloride 20 Meq In Water 100ml IV 09/09/16 10:21 50 mls/hr PRN PRN Administration Magnesium Sulfate/Dextrose 100 mls @ 200 mls/hr 08/10/16 10:25 08/10/16 16:18 Magnesium 1 Gm / 100 Ml D5w IV 09/09/16 10:24 200 mls/hr PRN PRN Administration Piperacillin Sod/Tazobactam 100 mls @ 100 mls/hr 08/11/16 14:00 08/12/16 05: 16 Sod 2.25 gm/ Dextrose IV 09/10/16 13:59 100 mls/hr Q8HT ABIOLA Administration Potassium Chloride/Dextrose/Sod Cl 1,000 mls @ 150 mls/hr 08/11/16 13:00 04:52 Dextrose 5% -Nacl 0.9% 1000 Ml + Kcl 20 Meq IV 09/10/16 12:59 150 mls/hr .Q6H40M ABIOLA Administration Insulin Aspart 0 unit 08/10/16 10:23 Novolog Insulin SQ 09/09/16 10:22 UD PRN Insulin Glargine 10 unit 08/10/16 10:30 08/12/16 02:02 Lantus Insulin SQ 09/09/16 10:29 10 unit QAM ABIOLA Administration Potassium Bicarbonate 50 meq 08/10/16 10:23 K-Lyte 25 Meq PO 09/09/16 10:22 PRN PRN Discontinued Medications Generic Name Dose Route Start Last Admin Trade Name Freq PRN Reason Stop Dose Admin Acetaminophen Confirm 08/06/16 01:13 Feverall 650 Mg Administered 08/06/16 01:14 Dose 650 mg .ROUTE .STK-MED ONE Acetaminophen 650 mg 08/06/16 04:53 08/06/16 01:15 Feverall 650 Mg WI 08/06/16 04:54 650 mg STAT ONE Administration Albuterol/Ipratropium 3 ml 08/06/16 01:24 08/06/16 01:41 Duoneb 0.5-3 Mg/3 Ml Neb IH 08/06/16 01:25 3 ml STAT ONE Administration Albuterol/Ipratropium Confirm 08/06/16 01:38 Duoneb 0.5-3 Mg/3 Ml Neb Administered 08/06/16 01:39 Dose 3 ml IH .STK-MED ONE Bumetanide 1 mg 08/09/16 21:00 08/09/16 21:13 Bumex 1 Mg IV 08/09/16 21:01 1 mg STAT ONE Administration Dextrose 150 ml 08/10/16 21:30 Dextrose 5%-Water 150ml IV 09/09/16 21:29 Q8H ABIOLA Sodium Chloride 1,000 mls @ 100 mls/hr 08/06/16 01:30 08/06/16 02:07 Sodium Chloride 0.9% 1000 Ml IV 09/05/16 01:29 100 mls/hr .Q10H ABIOLA Administration Sodium Chloride Confirm 08/06/16 02:06 Sodium Chloride 0.9% 1000 Ml Administered 08/06/16 02:07 Dose 1,000 mls @ ud .ROUTE .STK-MED ONE Ceftriaxone Sodium/Dextrose 50 mls @ 100 mls/hr 08/06/16 03:20 08/06/16 03:21 Rocephin 1 Gm-D5w 50 Ml Bag IV 08/06/16 03:49 100 mls/hr STAT ONE Administration Sodium Chloride 500 mls @ 999 mls/hr 08/06/16 03:21 08/06/16 03:21 Sodium Chloride 0.9% 1000 Ml IV 08/06/16 03:51 999 mls/hr .Q31M STA Administration Ceftriaxone Sodium/Dextrose Confirm 08/06/16 03:22 Rocephin 1 Gm-D5w 50 Ml Bag Administered 08/06/16 03:23 Dose 50 mls @ ud IV .STK-MED ONE Ceftriaxone Sodium/Dextrose 50 mls @ 100 mls/hr 08/06/16 22:00 08/08/16 22:37 Rocephin 1 Gm-D5w 50 Ml Bag IV 09/05/16 21:59 100 mls/hr Q24H22 ABIOLA Administration Sodium Chloride 1,000 mls @ 100 mls/hr 08/06/16 04:34 08/10/16 08:34 Sodium Chloride 0.9% 1000 Ml IV 09/05/16 04:33 100 mls/hr .Q10H ABIOLA Administration Vancomycin HCl 1 gm/ Sodium 250 mls @ 167 mls/hr 08/06/16 23:45 08/07/16 00: 20 Chloride IV 08/07/16 01:14 167 mls/hr ONCE ONE Administration Vancomycin HCl Confirm 08/06/16 23:49 Vancomycin 1gm/ Ns 250ml Administered 08/06/16 23:50 Dose 250 mls @ ud IV .STK-MED ONE Vancomycin HCl 1 gm/ Sodium 250 mls @ 167 mls/hr 08/07/16 10:00 08/09/16 08: 48 Chloride IV 08/09/16 16:00 167 mls/hr Q12H ABIOLA Administration Piperacillin Sod/Tazobactam Sod 100 mls @ 100 mls/hr 08/09/16 21:00 08/10/16 04:28 Zosyn 3.375gm/100 Ml D5w IV 09/08/16 20:59 100 mls/hr Q6HT ABIOLA Administration Piperacillin Sod/Tazobactam Sod 100 mls @ 100 mls/hr 08/10/16 14:00 08/11/16 08:44 Zosyn 3.375gm/100 Ml D5w IV 09/08/16 20:59 100 mls/hr Q8HT ABIOLA Administration Potassium Chloride/Dextrose/Sod Cl 1,000 mls @ 150 mls/hr 08/10/16 10:30 05/17 17:12 D5w/0.45ns W/ 20meq Kcl 1000 Ml IV 09/09/16 10:29 150 mls/hr .Q6H40M ABIOLA Administration Dextrose Confirm 08/10/16 21:24 Dextrose 5%/Water Iv Soln. 1000 Ml Administered 08/10/16 21:25 Dose 1,000 mls @ ud IV .STK-MED ONE Dextrose 1,000 mls @ 150 mls/hr 08/10/16 22:00 08/11/16 05:34 Dextrose 5%/Water Iv Soln. 1000 Ml IV 09/09/16 21:59 150 mls/hr .Q6H40M ABIOLA Administration Insulin Aspart 0 unit 08/06/16 04:34 08/09/16 11:45 Novolog Insulin SQ 09/05/16 04:33 6 unit UD PRN Administration HYPERGLYCEMIA Non-Formulary Medication 1 each 08/07/16 06:57 08/07/16 10:14 Pharmacy Dosing Required: Vancomycin IV 08/07/16 06:58 1 each STAT ONE Administration Intake & Output (Last 24 hours) 08/09/16 08/10/16 08/11/16 08/12/16 10:59 11:59 11:59 11:59 Intake Total 3773 4032 Output Total 725 700 Balance 3048 3332 Weight 29.846 kg 74.9 kg Laboratory Results (Last 24 hours) 08/12/16 08/12/16 08/12/16 11:07 06:15 06:15 WBC RBC Hgb Hct MCV MCH MCHC RDW Plt Count MPV Segmented Neutrophils Lymphocytes (Manual) Monocytes (Manual) Eosinophils (Manual) Differential Comment Platelet Estimate Sodium 144 143 Potassium 4.6 5.1 Chloride 115 H 114 H Carbon Dioxide 17.2 L 14.5 L* Anion Gap 15.9 H 19.7 H BUN 12 12 Creatinine 2.04 H 1.96 H Estimated GFR 25 27 Glucose 278 H 261 H Calcium 7.6 L 7.4 L Vancomycin Trough 18.1 08/12/16 08/12/16 08/11/16 01:09 01:09 20:14 WBC 11.7 H RBC 3.24 L Hgb 9.6 L Hct 29.4 L MCV 90.7 MCH 29.6 MCHC 32.7 RDW 13.7 Plt Count 218 MPV 10.0 H Segmented Neutrophils 89 H Lymphocytes (Manual) 8 L Monocytes (Manual) 2 Eosinophils (Manual) 1 Differential Comment NORMAL Platelet Estimate NORMAL Sodium 144 144 Potassium 4.3 4.7 Chloride 115 H 114 H Carbon Dioxide 18.4 L 18.4 L Anion Gap 14.7 16.2 H BUN 11 11 Creatinine 2.02 H 2.14 H Estimated GFR 26 24 Glucose 117 H 148 H Calcium 7.5 L 7.8 L Vancomycin Trough 08/11/16 08/11/16 16:22 12:23 WBC RBC Hgb Hct MCV MCH MCHC RDW Plt Count MPV Segmented Neutrophils Lymphocytes (Manual) Monocytes (Manual) Eosinophils (Manual) Differential Comment Platelet Estimate Sodium 142 143 Potassium 4.5 3.9 Chloride 113 H 112 H Carbon Dioxide 17.2 L 19.8 L Anion Gap 16.4 H 15.4 H BUN 11 12 Creatinine 2.19 H 2.26 H Estimated GFR 23 23 Glucose 172 H 177 H Calcium 7.8 L 7.9 L Vancomycin Trough Orders (Last 24 hours) Category Date Time Status Miscellaneous Nursing Order ROUTINE Care 08/11/16 13:36 Active BMP Routine Lab 08/11/16 12:23 Completed BMP Routine Lab 08/11/16 16:22 Completed BMP Routine Lab 08/11/16 20:14 Completed BMP Routine Lab 08/12/16 01:09 Completed BMP Routine Lab 08/12/16 06:15 Completed BMP Stat Lab 08/12/16 11:07 Completed BMP Stat Lab 08/12/16 15:00 Ordered CBC W DIFF Routine Lab 08/12/16 01:09 Completed Manual Differential NC Routine Lab 08/12/16 01:09 Completed Vancomycin,Random Urgent Lab 08/13/16 06:00 Ordered Vancomycin,Trough Urgent Lab 08/12/16 06:15 Completed D5ns 1000 ml + KCl 20 Meq [DEXTROSE 5% -NACL 0.9% 1000 Med 08/11/16 13:00 Active ML + KCl 20 MEQ] 1,000 ml IV 150 mls/hr Piperacillin/Tazobactam [Zosyn 2.25 GM] 2.25 gm Med 08/11/16 14:00 Active D5w 100 ml [D5w 100ML Mini Bag 100 ML] 100 ml IV Q8HT Patient Care Notes (Last 24 hours) 08/11/16 14:16 Nutrition Note by Nelly Ring F/u Note: Note speech therapy recommendation for alternative feeding method along with pureed ADA diet and honey thickened liquids. Pt with 0 po intake x 5 days. If peg tube placed; recommend glucerna 1.2 @ 50cc/hour to provide 1440 kcals, 72 gms protein, 972 cc's free water. Will monitor and f/u prn. TBRIA Huizar Initialized on 08/11/16 14:16 - END OF NOTE Patient condition is not improving, renal function is deteriorating, Patient cardiac function is fair to poor - Vitals & Intake/Output Vital Signs: Vital Signs Temperature 97.9 F 08/12/16 08:00 Pulse Rate 113 H 08/12/16 08:00 Respiratory Rate 18 08/12/16 08:48 Blood Pressure 168/83 08/12/16 08:00 O2 Sat by Pulse Oximetry 97 08/12/16 08:00 Oxygen-Last Documented O2 Percentage 2 Liters = 28% Intake & Output: Intake & Output 08/09/16 08/10/16 08/11/16 08/12/16 10:59 11:59 11:59 11:59 Intake Total 3773 4032 Output Total 725 700 Balance 3048 3332 Weight 29.846 kg 74.9 kg - Lab Result Diagrams: 08/12/16 01:09 08/12/16 11:07 Lab Results-Last 24 Hrs: Accuchecks Date 08/12/16 Date 08/12/16 Date 08/12/16 Date 08/12/16 Date 08/12/16 Date 08/12/16 Date 08/12/16 Date 08/12/16 Date 08/11/16 Date 08/11/16 Date 08/11/16 Date 08/11/16 Date 08/11/16 Date 08/11/16 Date 08/11/16 Date 08/11/16 Date 08/11/16 Date 08/11/16 Time 11:00 Time 09:47 Time 08:00 Time 06:15 Time 02:00 Time 23:00 Time 21:00 Time 08:00 Time 08:00 Time 08:00 Time 16:00 Time 16:00 Time 13:00 Time 13:00 Time 13:00 Accucheck Value: 254 Accucheck Value: 262 Accucheck Value: 256 Accucheck Value: 128 Accucheck Value: 101 Accucheck Value: 117 Accucheck Value: 117 Accucheck Value: 142 Accucheck Value: 139 Accucheck Value: 139 Accucheck Value: 125 Accucheck Value: 143 Accucheck Value: 178 Accucheck Value: 161 Accucheck Value: 155 Lab Results-Last 24 Hours 08/11/16 08/11/16 08/11/16 Range/Units 12:23 16:22 20:14 WBC (4.0-10.5) K/mm3 RBC (4.1-5.4) M/mm3 Hgb (12.0-16.0) gm/dl Hct (35-47) % MCV (78-100) fl MCH (26-32) pg MCHC (32-36) g/dl RDW (11.5-14.0) % Plt Count (150-450) K/mm3 MPV (6-9.5) fl Segmented Neutrophils (36.0-66.0) % Lymphocytes (Manual) (24-44) % Monocytes (Manual) (0.0-12.0) % Eosinophils (Manual) (0.00-3.0) % Differential Comment Platelet Estimate (NORMAL) Sodium 143 142 144 (136-145) mEq/L Potassium 3.9 4.5 4.7 (3.5-5.1) mEq/L Chloride 112 H 113 H 114 H (98-107) mEq/L Carbon Dioxide 19.8 L 17.2 L 18.4 L (21-32) mEq/L Anion Gap 15.4 H 16.4 H 16.2 H (5-15) MEQ/L BUN 12 11 11 (9-20) mg/dL Creatinine 2.26 H 2.19 H 2.14 H (0.55-1.30) mg/dl Estimated GFR 23 23 24 ML/MIN Glucose 177 H 172 H 148 H (70-110) MG/DL Calcium 7.9 L 7.8 L 7.8 L (8.5-10.1) mg/dL Vancomycin Trough (10-20) UG/ML 08/12/16 08/12/16 08/12/16 Range/Units 01:09 01:09 06:15 WBC 11.7 H (4.0-10.5) K/mm3 RBC 3.24 L (4.1-5.4) M/mm3 Hgb 9.6 L (12.0-16.0) gm/dl Hct 29.4 L (35-47) % MCV 90.7 (78-100) fl MCH 29.6 (26-32) pg MCHC 32.7 (32-36) g/dl RDW 13.7 (11.5-14.0) % Plt Count 218 (150-450) K/mm3 MPV 10.0 H (6-9.5) fl Segmented Neutrophils 89 H (36.0-66.0) % Lymphocytes (Manual) 8 L (24-44) % Monocytes (Manual) 2 (0.0-12.0) % Eosinophils (Manual) 1 (0.00-3.0) % Differential Comment NORMAL Platelet Estimate NORMAL (NORMAL) Sodium 144 (136-145) mEq/L Potassium 4.3 (3.5-5.1) mEq/L Chloride 115 H (98-107) mEq/L Carbon Dioxide 18.4 L (21-32) mEq/L Anion Gap 14.7 (5-15) MEQ/L BUN 11 (9-20) mg/dL Creatinine 2.02 H (0.55-1.30) mg/dl Estimated GFR 26 ML/MIN Glucose 117 H (70-110) MG/DL Calcium 7.5 L (8.5-10.1) mg/dL Vancomycin Trough 18.1 (10-20) UG/ML 08/12/16 08/12/16 Range/Units 06:15 11:07 WBC (4.0-10.5) K/mm3 RBC (4.1-5.4) M/mm3 Hgb (12.0-16.0) gm/dl Hct (35-47) % MCV (78-100) fl MCH (26-32) pg MCHC (32-36) g/dl RDW (11.5-14.0) % Plt Count (150-450) K/mm3 MPV (6-9.5) fl Segmented Neutrophils (36.0-66.0) % Lymphocytes (Manual) (24-44) % Monocytes (Manual) (0.0-12.0) % Eosinophils (Manual) (0.00-3.0) % Differential Comment Platelet Estimate (NORMAL) Sodium 143 144 (136-145) mEq/L Potassium 5.1 4.6 (3.5-5.1) mEq/L Chloride 114 H 115 H (98-107) mEq/L Carbon Dioxide 14.5 L* 17.2 L (21-32) mEq/L Anion Gap 19.7 H 15.9 H (5-15) MEQ/L BUN 12 12 (9-20) mg/dL Creatinine 1.96 H 2.04 H (0.55-1.30) mg/dl Estimated GFR 27 25 ML/MIN Glucose 261 H 278 H (70-110) MG/DL Calcium 7.4 L 7.6 L (8.5-10.1) mg/dL Vancomycin Trough (10-20) UG/ML Micro Results-Entire Visit: Accuchecks Date 08/12/16 Date 08/12/16 Date 08/12/16 Date 08/12/16 Date 08/12/16 Date 08/12/16 Date 08/12/16 Date 08/12/16 Date 08/11/16 Date 08/11/16 Date 08/11/16 Date 08/11/16 Date 08/11/16 Date 08/11/16 Date 08/11/16 Date 08/11/16 Date 08/11/16 Date 08/11/16 Time 11:00 Time 09:47 Time 08:00 Time 06:15 Time 02:00 Time 23:00 Time 21:00 Time 08:00 Time 08:00 Time 08:00 Time 16:00 Time 16:00 Time 13:00 Time 13:00 Time 13:00 Accucheck Value: 254 Accucheck Value: 262 Accucheck Value: 256 Accucheck Value: 128 Accucheck Value: 101 Accucheck Value: 117 Accucheck Value: 117 Accucheck Value: 142 Accucheck Value: 139 Accucheck Value: 139 Accucheck Value: 125 Accucheck Value: 143 Accucheck Value: 178 Accucheck Value: 161 Accucheck Value: 155 - Procedures and Test Procedures and Tests throughout Hospitalization: Therapy Orders & Screens 08/06/16 04:34 Oxygen NASAL CANNULA 2 lpm Comment: Diagnosis: Shortness of Breath 08/06/16 06:05 neb [Respiratory Nebulizer] PRN Comment: DUO Q4 PRN Diagnosis: Shortness of Breath 08/06/16 13:01 ST Eval & Treat ( Order) .as ordered Comment: Physician Instructions: Reason For Exam: Evaluate: Yes Treat: Yes Reason for Eval: ams Diagnosis: EXAC COPD, SOB, CDIFF Discharge Exam General Appearance: no apparent distress, alert Neurologic Exam: alert, oriented x 3, cooperative, normal mood/affect, nml cerebellar function, sensation nml, No motor deficits Skin Exam: normal color, warm, dry Eye Exam: PERRL, EOMI, eyes nml inspection Ears, Nose, Throat Exam: normal ENT inspection, pharynx normal, moist mucous membranes Neck Exam: normal inspection, non-tender, supple, full range of motion Respiratory Exam: normal breath sounds, lungs clear, No respiratory distress Cardiovascular Exam: regular rate/rhythm, normal heart sounds Gastrointestinal/Abdomen Exam: soft, No tenderness, No mass Extremity Exam: normal inspection, normal range of motion Back Exam: normal inspection, normal range of motion, No CVA tenderness, No vertebral tenderness Pelvic Exam: deferred Rectal Exam: deferred Final Diagnosis/Problem List - Final Discharge Diagnosis/Problem (1) Enterococcal septicemia Current Visit: Yes Status: Acute Assessment & Plan: Patient is being transferred to [facility] for further care (2) Type 2 diabetes mellitus Current Visit: Yes Status: Chronic (3) COPD with exacerbation Current Visit: Yes Status: Resolved - Discharge Discharge Date: 08/12/16 Disposition: DC TO [facility] Condition: Stable Prescriptions: No Action Montelukast Sodium 10 mg [Singulair 10 MG] 10 mg PO QAM Metoprolol Succinate 50 mg [Toprol Xl 50 MG] 50 mg PO QAM Lisinopril 5 mg [Zestril 5 MG] 5 mg PO QAM Docusate Sodium [Stool Softener] 50 mg PO HS Insulin Detemir [Levemir] 15 unit SQ QAM Diclofenac Sodium [Voltaren] 25 mg PO BID Bumetanide 1 mg [Bumex 1 mg] 0.5 mg PO QAM Simvastatin 10 mg PO HS Acetaminophen 325 mg [Tylenol 325 mg] 650 mg PO Q4HPRN PRN PRN Reason: pain/temp>101 Insulin Aspart [NovoLOG Insulin] 1 unit SQ QID PRN PRN PRN Reason: blood sugar >200 Gabapentin 400 mg [Neurontin 400 MG] 400 mg PO BID Insulin Detemir [Levemir] 10 unit SQ HS Hydrocodone/Acetaminophen [Hydrocodon-Acetaminophen 5-325] 1 tab PO BID Polyethylene Glycol 3350 17 gm [Miralax Powder 17GM PACKET] 17 gm PO UD Glucagon 1 mg [GlucaGen 1 MG] 1 mg IM UD PRN PRN Reason: see text Carbidopa/Levodopa/Entacapone* [Stalevo 150 Tablet] 1 tab PO BID Aspirin 81 mg PO DAILY Albuterol/Ipratropium 3ml Neb* [DUONEB 0.5-3 MG/3 ml Neb] 3 ml IH Q4HPRN PRN #0 ampul.neb PRN Reason: Shortness Of Breath/Wheezing Guaifenesin/Codeine Phosphate [Guaiatussin AC Liquid] 5 ml PO Q6H PRN PRN PRN Reason: Cough Na Phos,M-B/Na Phos,Di-Ba [Fleet Enema] 118 ml RC DAILY PRN PRN PRN Reason: Constipation Cephalexin Mh 250 mg [Keflex 250 mg] 250 mg PO TID Instructions: Chronic Obstructive Pulmonary Disease Follow up with: CUAUHTEMOC DE LA GARZA [Primary Care Provider] -
[2016-08-12 12:55] VITALS: BP 157/113; PULSE 98; O2SAT 10
== END 2016-08-12 13:45 | disposition short-term general hospital (02) | DRG 872 ==
LOC: ED 00:57 → ICU 03:49 → OBSVTOIN 11:00 → MED SURG 08-08 02:03 → ICU 08-09 13:41
PROVIDERS: ADMIT General Practice; ATTEND General Practice
DX: A41.81 Sepsis due to Enterococcus (principal); J44.1 Chronic obstructive pulmonary disease with (acute) exacerbation; R78.81 Bacteremia; A04.7 Enterocolitis due to Clostridium difficile; R65.20 Severe sepsis without septic shock; E11.65 Type 2 diabetes mellitus with hyperglycemia; Z79.4 Long term (current) use of insulin; K59.00 Constipation, unspecified; E78.5 Hyperlipidemia, unspecified; I25.10 Atherosclerotic heart disease of native coronary artery without angina pectoris; I11.0 Hypertensive heart disease with heart failure; I50.9 Heart failure, unspecified; J20.9 Acute bronchitis, unspecified; R13.10 Dysphagia, unspecified; M19.90 Unspecified osteoarthritis, unspecified site; F41.9 Anxiety disorder, unspecified; R41.82 Altered mental status, unspecified; Z79.899 Other long term (current) drug therapy; M54.9 Dorsalgia, unspecified; G89.29 Other chronic pain; J06.9 Acute upper respiratory infection, unspecified; Z20.89 Contact with and (suspected) exposure to other communicable diseases
CPT/HCPCS: 36000; 36415; 36600; 51702; 70450; 70551; 71010; 74230; 80048; 80053; 80202; 81002; 82375; 82803; 82805; 82962; 83605; 83735; 83880; 84100; 84132; 84484; 85025; 85027; 87040; 87077; 87086; 87186; 87493; 87631; 93005; 93041; 93268; 93306; 94640; 94760; 96360; 96361; 99285; J0696; J1610; J1815; J2543; J3370; J3475; J3480

== ENCOUNTER 2016-09-16 15:06 | Emergency (ER) | payer MEDICARE, OTHER ==
[2016-09-16] MEDS ORDERED: Sodium Chloride 0.9% 1000 ML 1,000 ML IV SCH (15:30)
[2016-09-16 15:54] LABS: Mean Cell Volume 96.5 fl (78-100); Mean Platelet Volume 12.7 fl (6-9.5); Platelet Count 145 K/mm3 (150-450); Red Blood Count 2.85 M/mm3 (4.1-5.4); Red Cell Distribution Width 15.1 % (11.5-14.0); White Blood Count 11.1 K/mm3 (4.0-10.5)
[2016-09-16] MEDS ORDERED: Sodium Chloride 0.9% 1000 ML 1,000 ML ONE (16:07)
[2016-09-16 16:17] LABS: ALBUMIN 3.4 g/dL (3.4-5.0); ANION GAP 12.6 MEQ/L (5-15); BILIRUBIN,TOTAL 0.4 mg/dL (0.2-1.0); Carbon Dioxide 29.1 mEq/L (21-32); Potassium 5.2 mEq/L (3.5-5.1)
[2016-09-16 16:33] LABS: Mean Corpuscular Hemoglobin 29.4 pg (26-32)
[2016-09-16 18:03] VITALS: O2SAT 99
[2016-09-16 18:21] LABS: Bacteria MODERATE /HPF (NEGATIVE); COMPLETE URINE MICROSCOPIC? YES; Collection Type CCMS; WBC >100 /HPF (0-5)
[2016-09-16 18:22] LABS: Yeast MANY /HPF (NEGATIVE)
--- NOTE | 2016-09-16 18:23 | ERPHSYRPT ---
- History of Present Illness Time Seen by Provider: 09/16/16 15:15 Source: patient, skilled nursing records Exam Limitations: clinical condition Patient Subjective Stated Complaint: no c/o per pt. temp 99.1 rectal. urine clear yellow drng per gravity f/c. lungs clear to auscultation. Triage Nursing Assessment: pt resting well, laying on left side. resp easy, even , no cough of shortness of breath noted. o2 sat 100% with O2 at 2L per n/c. f/c patent and drng clear yellow urine. peg tube site without redness, scant drng to drsh present. asked pt if she had been sick, stated no. Physician History: PATIENT WITH HISTORY OF HYPERTENSION, COPD,TYPE 2 DIABETES REFERRED TO EMERGENCY FOR EVALUATION OF FEVER TEMP 99.1 RECTALLY. DENIES COUGH, DIFFICULTY BREATHING, EMESIS OR LETHARGY. Timing/Duration: today, day(s) Associated Symptoms: denies symptoms Allergies/Adverse Reactions: ranitidine Allergy (Verified 08/06/16 02:04) Home Medications: Lisinopril 5 mg [Zestril 5 MG] 5 mg PO [facility] 09/29/12 [History] Metoprolol Succinate 50 mg [Toprol Xl 50 MG] 50 mg PO [facility] 09/29/12 [ History] Montelukast Sodium 10 mg [Singulair 10 MG] 10 mg PO QAM 09/29/12 [History] Docusate Sodium [Stool Softener] 50 mg PO HS 11/20/12 [History] Insulin Detemir [Levemir] 15 unit SQ [facility] 11/20/12 [History] Diclofenac Sodium [Voltaren] 25 mg PO BID 07/04/13 [History] Acetaminophen 325 mg [Tylenol 325 mg] 650 mg PO Q4HPRN PRN 07/24/16 [ History] Aspirin 81 mg PO DAILY 07/24/16 [History] Bumetanide 1 mg [Bumex 1 mg] 0.5 mg PO QAM 07/24/16 [History] Carbidopa/Levodopa/Entacapone* [Stalevo 150 Tablet] 1 tab PO BID 07/24/16 [ History] Gabapentin 400 mg [Neurontin 400 MG] 400 mg PO BID 07/24/16 [History] Glucagon 1 mg [GlucaGen 1 MG] 1 mg IM UD PRN 07/24/16 [History] Hydrocodone/Acetaminophen [Hydrocodon-Acetaminophen 5-325] 1 tab PO BID [History] Insulin Aspart [NovoLOG Insulin] 1 unit SQ QID PRN PRN 07/24/16 [History] Insulin Detemir [Levemir] 10 unit SQ HS 07/24/16 [History] Polyethylene Glycol 3350 17 gm [Miralax Powder 17GM PACKET] 17 gm PO UD 07/24 [History] Simvastatin 10 mg PO HS 07/24/16 [History] Cephalexin Mh 250 mg [Keflex 250 mg] 250 mg PO TID 08/06/16 [History] Guaifenesin/Codeine Phosphate [Guaiatussin AC Liquid] 5 ml PO Q6H PRN PRN [History] Na Phos,M-B/Na Phos,Di-Ba [Fleet Enema] 118 ml RC DAILY PRN PRN 08/06/16 [ History] Hx Tetanus, Diphtheria Vaccination/Date Given: Yes Hx Influenza Vaccination/Date Given: Yes Hx Pneumococcal Vaccination/Date Given: Yes Immunizations Up to Date: Yes - Review of Systems Constitutional: Fever, No Chills Eyes: No Symptoms Ears, Nose, & Throat: No Symptoms Respiratory: No Symptoms, No Cough, No Dyspnea Cardiac: No Symptoms, No Chest Pain, No Edema, No Syncope Abdominal/Gastrointestinal: No Symptoms, No Abdominal Pain, No Nausea, No Vomiting, No Diarrhea Genitourinary Symptoms: No Symptoms, No Dysuria Musculoskeletal: No Symptoms, No Back Pain, No Neck Pain Skin: No Symptoms, No Rash Neurological: No Dizziness, No Focal Weakness, No Sensory Changes Psychological: No Symptoms Endocrine: No Symptoms All Other Systems: Reviewed and Negative - Past Medical History Pertinent Past Medical History: Yes Neurological History: No Pertinent History, Other ENT History: Cataracts Cardiac History: Arrhythmia, High Cholesterol, Hypertension Respiratory History: COPD Endocrine Medical History: Diabetes Type II Musculoskeletal History: Fractures, Osteoarthritis GI Medical History: No Pertinent History History: No Pertinent History Psycho-Social History: Anxiety Female Reproductive Disorders: No Pertinent History - Past Surgical History Past Surgical History: Yes Neuro Surgical History: No Pertinent History Cardiac: No Pertinent History, Vascular Surgery Respiratory: No Pertinent History Gastrointestinal: No Pertinent History Genitourinary: No Pertinent History Musculoskeletal: Orthopedic Surgery Female Surgical History: No Pertinent History Other Surgical History: cataract surgery on left eye; right hip surgery; left leg vein surgery - Social History Smoking Status: Unknown if ever smoked Exposure to second hand smoke: No Drug Use: none Patient Lives Alone: No - Female History Hx Last Menstrual Period: menopause Hx Now: No - Nursing Vital Signs Nursing Vital Signs: Initial Vital Signs Temperature 99.1 F Temperature Source Rectal Pulse Rate 88 Respiratory Rate 16 Blood Pressure [] 132/72 Pain Intensity 0 - Physical Exam General Appearance: no apparent distress, alert Eye Exam: PERRL/EOMI, eyes nml inspection Ears, Nose, Throat Exam: normal ENT inspection, TMs normal, pharynx normal, moist mucous membranes Neck Exam: normal inspection, non-tender, supple, full range of motion Respiratory Exam: normal breath sounds, lungs clear, No respiratory distress Cardiovascular Exam: regular rate/rhythm, normal heart sounds, normal peripheral pulses Gastrointestinal/Abdomen Exam: soft, normal bowel sounds, other (PEG FEEDING TUBE), No tenderness, No mass Back Exam: normal inspection, normal range of motion, No CVA tenderness, No vertebral tenderness Extremity Exam: normal inspection, normal range of motion, pelvis stable Neurologic Exam: alert, oriented x 3, cooperative, normal mood/affect, nml cerebellar function, nml station & gait, sensation nml, No motor deficits Skin Exam: normal color, warm, dry, No rash Lymphatic Exam: No adenopathy SpO2 Interpretation: normal SpO2: 99 Oxygen Delivery: Room Air - Radiology Exams Chest X-ray Interpretation: No Infiltrates Ordered Tests: Active Orders 24 hr Category Date Time Status Cath [Catheter-Brinkley Drummond] STAT Care 09/16/16 17:12 Active Cath for Specimen-Straight STAT Care 09/16/16 16:17 Active CHEST 1 VIEW (PORTABLE) Stat Exams 09/16/16 17:19 Taken BLOOD CULTURE Stat Lab 09/16/16 15:50 Received CBC W DIFF Stat Lab 09/16/16 15:50 Completed CMP Stat Lab 09/16/16 15:50 Completed Manual Differential NC Stat Lab 09/16/16 15:50 Completed UA W/ MICROSCOPIC Stat Lab 09/16/16 17:50 Completed Medication Summary Generic Name Dose Route Start Last Admin Trade Name Freq PRN Reason Stop Dose Admin Sodium Chloride 1,000 mls @ 200 mls/hr 09/16/16 15:30 09/16/16 16:08 Sodium Chloride 0.9% 1000 Ml IV 10/16/16 15:29 200 mls/hr .Q5H ABIOLA Administration Discontinued Medications Generic Name Dose Route Start Last Admin Trade Name Freq PRN Reason Stop Dose Admin Ceftriaxone Sodium/Dextrose 50 mls @ 100 mls/hr 09/16/16 18:26 09/16/16 19:11 Rocephin 1 Gm-D5w 50 Ml Bag IV 09/16/16 18:55 100 mls/hr STAT ONE Administration Ceftriaxone Sodium/Dextrose Confirm 09/16/16 19:08 Rocephin 1 Gm-D5w 50 Ml Bag Administered 09/16/16 19:09 Dose 50 mls @ ud IV .STK-MED ONE Lab/Rad Data: Laboratory Result Diagrams 09/16/16 15:50 09/16/16 15:50 Laboratory Results 09/16/16 09/16/16 09/16/16 Range/Units 17:50 15:50 15:50 WBC 11.1 H (4.0-10.5) K/mm3 RBC 2.85 L (4.1-5.4) M/mm3 Hgb 8.4 L (12.0-16.0) gm/dl Hct 27.5 L (35-47) % MCV 96.5 (78-100) fl MCH 29.4 (26-32) pg MCHC 30.5 L (32-36) g/dl RDW 15.1 H (11.5-14.0) % Plt Count 145 L (150-450) K/mm3 MPV 12.7 H (6-9.5) fl Segmented Neutrophils 86 H (36.0-66.0) % Lymphocytes (Manual) 5 L (24-44) % Monocytes (Manual) 7 (0.0-12.0) % Eosinophils (Manual) 2 (0.00-3.0) % Differential Comment NORMAL Platelet Estimate NORMAL (NORMAL) Sodium 136 (136-145) mEq/L Potassium 5.2 H (3.5-5.1) mEq/L Chloride 99 (98-107) mEq/L Carbon Dioxide 29.1 (21-32) mEq/L Anion Gap 12.6 (5-15) MEQ/L BUN 75 H (9-20) mg/dL Creatinine 1.36 H (0.55-1.30) mg/dl Estimated GFR 41 ML/MIN Glucose 108 (70-110) MG/DL Calcium 9.0 (8.5-10.1) mg/dL Total Bilirubin 0.4 (0.2-1.0) mg/dL AST 15 (15-37) U/L ALT 9 L (12-78) U/L Alkaline Phosphatase 119 H (46-116) U/L Serum Total Protein 7.0 (6.4-8.2) gm/dL Albumin 3.4 (3.4-5.0) g/dL Ur Collection Type CCMS Urine Color YELLOW (YELLOW) Urine Appearance CLOUDY (CLEAR) Urine pH 5.0 (5-6) Ur Specific [place] 1.020 (1.005-1.025) Urine Protein 30 (Negative) Urine Glucose (UA) NEGATIVE (NEGATIVE) mg/dL Urine Ketones TRACE (NEGATIVE) Urine Nitrite NEGATIVE (NEGATIVE) Urine Bilirubin NEGATIVE (NEGATIVE) Urine Urobilinogen 0.2 (0-1) mg/dL Urine WBC (Auto) MODERATE (NEGATIVE) Urine RBC (Auto) TRACE-INTACT (0-5) Hansel/ul Urine Microscopic RBC >100 (0-2) /HPF Urine Microscopic WBC >100 (0-5) /HPF Urine Bacteria MODERATE (NEGATIVE) /HPF Urine Yeast MANY (NEGATIVE) /HPF Specimen Received [id number] - Progress Discussed with DrTanika: Henrique De La Garza (DISCUSSED WITH DR Stephanie MARTIN AT 1840 ACCEPTS TRANSFER TO [facility]IA [facility]) Counseled pt/family regarding: lab results, diagnosis, need for follow-up - Departure Time of Disposition: 17:20 Departure Disposition: Transfer Clinical Impression: URINARY TRACT INFECTION, DEHYDRATION Condition: Stable Critical Care Time: No Referrals: CUAUHTEMOC DE LA GARZA [Primary Care Provider] -
[2016-09-16] MEDS ORDERED: ROCEPHIN 1 Gm-D5w 50 ml Bag** 50 ML IV ONE ×2 (18:26→19:08)
[2016-09-16 18:34] LABS: Eosinophil 2 % (0.00-3.0); Total Cells Counted 100
[2016-09-16 18:35] LABS: Platelet Estimate NORMAL (NORMAL)
[2016-09-16 19:13] VITALS: BP 132/72; PULSE 88
--- NOTE | 2016-09-16 22:13 | XRAY ---
AP upright portable chest film from 1745 hrs. on 09/16/2016. Comparison: AP portable chest film from 08/09/2016. Indication: Cough. Findings: The transverse heart size does not appear enlarged for this AP portable technique. Slight tortuosity of the descending thoracic aorta is seen. Mild chronic central bronchial wall thickening is seen. I again note some opacity overlying the medial right lung apex within the right paratracheal projection and medial end of the right clavicle which is unchanged dating back to 2013 and likely represents tortuosity of the large vessels in this projection. A tiny calcified granuloma is seen at the lateral right lung base. A minimal slightly curved discoid density overlying the central right lower lung field may relate to some focal pleural thickening or plaque formation. I don't believe this represents a significant change from 08/06/2016. Otherwise, the lung pierre appear clear. No pneumothorax, vascular congestion, or pleural fluid is seen. No air space infiltrate is seen. An old fracture deformity of the posterior lateral right third rib is seen. Impression: 1. No air space infiltrates to suggest pneumonia or other acute cardiopulmonary disease is seen. This is unchanged from 08/06/2016. 2. There is a 1.8 cm in height by 0.7 cm in width curved discoid density within the central right lower lung field which in retrospect appears similar to 08/06/2016. This is of doubtful significance. Minimal focal pleural thickening or plaque formation is possible.
== END 2016-09-16 19:21 | disposition short-term general hospital (02) ==
LOC: ED 15:06
DX: N39.0 Urinary tract infection, site not specified (principal); E86.0 Dehydration; I10 Essential (primary) hypertension; J44.9 Chronic obstructive pulmonary disease, unspecified; E11.9 Type 2 diabetes mellitus without complications; Z79.899 Other long term (current) drug therapy; Z79.84 Long term (current) use of oral hypoglycemic drugs; Z79.4 Long term (current) use of insulin
CPT/HCPCS: 96365; 99285; 51702; 96360; 96361; 87040; 81000; 36415; 87186; 85025; 87077; 80053; 71010; P9612; J0696

== ENCOUNTER 2016-09-23 11:21 | Emergency (ER) | payer MEDICARE, OTHER ==
[2016-09-23] MEDS ORDERED: Sodium Chloride 0.9% 1000 ML 1,000 ML IV SCH (11:30)
[2016-09-23 11:37] LABS: VBG BASE EXCESS 6.4 (-2.0-2.0); VBG CARBOXYHEMOGLOBIN 3.4 % T HGB (0.0-6.9); VBG HCO3- 32.2 meq/L (22-28); VBG HEMOGLOBIN 9.4; VBG POTASSIUM 5.6 (3.5-5.1); VBG pH 7.4 (7.32-7.42)
[2016-09-23] MEDS ORDERED: Sodium Chloride 0.9% 1000 ML 1,000 ML ONE (11:40)
[2016-09-23 11:46] LABS: Collection Type CATH
[2016-09-23 11:47] LABS: COMPLETE URINE MICROSCOPIC? YES
[2016-09-23 11:51] LABS: Mean Cell Volume 92.7 fl (78-100); Mean Corpuscular Hemoglobin 28.8 pg (26-32); Mean Platelet Volume 13.2 fl (6-9.5); Platelet Count 176 K/mm3 (150-450); Red Blood Count 3.02 M/mm3 (4.1-5.4); Red Cell Distribution Width 14.3 % (11.5-14.0); White Blood Count 11.1 K/mm3 (4.0-10.5)
--- NOTE | 2016-09-23 12:02 | XRAY ---
Indication: Hyperglycemia. Comparison: September 16, 2016. Portable chest demonstrates stable chronic interstitial lung markings and a few calcified granulomas. No focal infiltrate, consolidation, or large effusion. Heart is not enlarged. Vascularity normal. Impression: Stable nonacute chest with chronic features.
--- NOTE | 2016-09-23 12:03 | ERPHSYRPT ---
- History of Present Illness Time Seen by Provider: 09/23/16 11:25 Source: EMS, half-way records Patient Subjective Stated Complaint: ems states they were called to local half-way for elderly female with increased blood sugar. ems reports blood surgar 458. Triage Nursing Assessment: pt pink, warm, dry. pt alert confused to time and place. pt can answer birthdate. Physician History: CC: high sugar Hx: 71 y/o patient from [facility]. She has hx of DM. On feeding tube with recent addition of pleasure foods po. Sugars high despite extra insulin coverage so she was sent to ER. Pt unable to give much hx due to dementia. Old chart shows hx of enterococcus faceium blood culture positive. Reported to have been treated with vanc. Has indwelling john cath due to urinary incontinence and sacral decub wounds and she also has pre-existing heel ulcer. Allergies/Adverse Reactions: ranitidine Allergy (Verified 09/23/16 11:23) Home Medications: Aspirin 81 mg PO DAILY 09/23/16 [History] Bumetanide 1 mg [Bumex 1 mg] 1 mg PEG DAILY 09/23/16 [History] Carbidopa/Levodopa [Carbidopa-Levo 25-100 Tab] 1 each PEG BID 09/23/16 [History] Darbepoetin Pollo in Polysorbat [Aranesp] 60 mcg IJ UD 09/23/16 [History] Entacapone 200 mg [Comtan 200 MG] 200 mg PEG BID 09/23/16 [History] Insulin Aspart [NovoLOG Insulin] 1 unit SQ UD 09/23/16 [History] Insulin Detemir [Levemir] 10 unit SQ 09/23/16 [History] Insulin Detemir [Levemir] 15 unit SQ DAILY 09/23/16 [History] Metoprolol Tartrate 25 mg [Lopressor 25MG Tab] 25 mg PEG BID 09/23/16 [ History] Montelukast Sodium [Singulair] 10 mg PEG DAILY 09/23/16 [History] Simvastatin 10 mg PEG HS 09/23/16 [History] Hx Tetanus, Diphtheria Vaccination/Date Given: Yes (up to date) Hx Influenza Vaccination/Date Given: Yes Hx Pneumococcal Vaccination/Date Given: Yes Immunizations Up to Date: Yes - Review of Systems Constitutional: No Fever, No Chills Abdominal/Gastrointestinal: No Vomiting All Other Systems: Unable due to dementia - Past Medical History Pertinent Past Medical History: Yes Neurological History: No Pertinent History, Other ENT History: Cataracts Cardiac History: Arrhythmia, High Cholesterol, Hypertension Respiratory History: COPD Endocrine Medical History: Diabetes Type II Musculoskeletal History: Fractures, Osteoarthritis GI Medical History: No Pertinent History History: No Pertinent History Psycho-Social History: Anxiety Female Reproductive Disorders: No Pertinent History - Past Surgical History Past Surgical History: Yes Neuro Surgical History: No Pertinent History Cardiac: No Pertinent History, Vascular Surgery Respiratory: No Pertinent History Gastrointestinal: No Pertinent History Genitourinary: No Pertinent History Musculoskeletal: Orthopedic Surgery Female Surgical History: No Pertinent History Other Surgical History: cataract surgery on left eye; right hip surgery; left leg vein surgery - Social History Smoking Status: Never smoker Exposure to second hand smoke: No Drug Use: none Patient Lives Alone: No (MMM ECF) - Female History Hx Now: No - Nursing Vital Signs Nursing Vital Signs: Initial Vital Signs Temperature 98.5 F Temperature Source Rectal Pulse Rate 76 Respiratory Rate 16 Blood Pressure [Right Arm] 137/73 Pain Intensity 0 - Physical Exam General Appearance: alert Eye Exam: PERRL/EOMI Ears, Nose, Throat Exam: normal ENT inspection, moist mucous membranes Neck Exam: normal inspection, non-tender, supple Respiratory Exam: normal breath sounds, lungs clear Cardiovascular Exam: regular rate/rhythm Gastrointestinal/Abdomen Exam: soft, No tenderness, No distention Extremity Exam: other (right heel ulceration, sacral decub ulceration grade 2-3) Neurologic Exam: alert, other (answers only her name) Skin Exam: warm, dry SpO2 Interpretation: normal SpO2: 100 Oxygen Delivery: Nasal Cannula - Course Nursing assessment & vital signs reviewed: Yes - Radiology Exams cxr X-ray Interpretation: Discussed w/ radiologist, Negative Ordered Tests: Active Orders 24 hr Category Date Time Status Accucheck STAT Care 09/23/16 14:27 Active Catheter-[place] John STAT Care 09/23/16 11:25 Active IV Insertion STAT Care 09/23/16 11:25 Active IV Insertion STAT Care 09/23/16 11:39 Active Oxygen-ED Only NASAL CANNULA 2 lpm Care 09/23/16 11:40 Active Pulse Oximetry (ED) STAT Care 09/23/16 11:39 Active CHEST 1 VIEW (PORTABLE) Stat Exams 09/23/16 11:26 Completed BLOOD CULTURE Stat Lab 09/23/16 11:30 Received CBC W DIFF Stat Lab 09/23/16 11:30 Completed CMP Stat Lab 09/23/16 11:30 Completed CULTURE,URINE Stat Lab 09/23/16 11:30 Received Glucose,Critical Care Urgent Lab 09/23/16 11:26 Completed Lactic Acid Urgent Lab 09/23/16 11:25 Completed Manual Differential NC Stat Lab 09/23/16 11:30 Completed UA W/ MICROSCOPIC Stat Lab 09/23/16 11:30 Results VENOUS BLOOD GAS Urgent Lab 09/23/16 11:26 Completed Medication Summary Generic Name Dose Route Start Last Admin Trade Name Freq PRN Reason Stop Dose Admin Sodium Chloride 1,000 mls @ 100 mls/hr 09/23/16 11:30 09/23/16 11:41 Sodium Chloride 0.9% 1000 Ml IV 10/23/16 11:29 100 mls/hr .Q10H ABIOLA Administration Discontinued Medications Generic Name Dose Route Start Last Admin Trade Name Freq PRN Reason Stop Dose Admin Levofloxacin 250 mg 09/23/16 14:26 Levofloxacin 250mg Tablet G-TUBE 09/23/16 14:27 STAT ONE Lab/Rad Data: Laboratory Result Diagrams 09/23/16 11:30 09/23/16 11:30 Laboratory Results 09/23/16 09/23/16 09/23/16 Range/Units 11:30 11:30 11:30 WBC 11.1 H (4.0-10.5) K/mm3 RBC 3.02 L (4.1-5.4) M/mm3 Hgb 8.7 L (12.0-16.0) gm/dl Hct 28.0 L (35-47) % MCV 92.7 (78-100) fl MCH 28.8 (26-32) pg MCHC 31.1 L (32-36) g/dl RDW 14.3 H (11.5-14.0) % Plt Count 176 (150-450) K/mm3 MPV 13.2 H (6-9.5) fl Segmented Neutrophils 88 H (36.0-66.0) % Lymphocytes (Manual) 6 L (24-44) % Monocytes (Manual) 4 (0.0-12.0) % Basophils (Manual) 1 (0.0-1.0) % Differential Comment ABNORMAL Atypical Lymphocytes 1 % Platelet Estimate NORMAL (NORMAL) Anisocytosis 1+ VBG pH (7.32-7.42) VBG pCO2 at Pat Temp (42-55) mm/Hg VBG pO2 at Pat Temp (25-40) mm/Hg VBG HCO3 (22-28) meq/L VBG O2 Sat (Dean) (95-100) VBG Base Excess (-2.0-2.0) VBG Hemoglobin VBG Carboxyhemoglobin (0.0-6.9) % T HGB POC Potassium (3.5-5.1) Glucose 436 H (70-110) Sodium 134 L (136-145) mEq/L Potassium 5.3 H (3.5-5.1) mEq/L Chloride 97 L (98-107) mEq/L Carbon Dioxide 28.2 (21-32) mEq/L Anion Gap 14.3 (5-15) MEQ/L BUN 45 H (9-20) mg/dL Creatinine 1.06 (0.55-1.30) mg/dl Estimated GFR 54 ML/MIN Lactic Acid (0.4-2.0) Calcium 9.2 (8.5-10.1) mg/dL Total Bilirubin 0.3 (0.2-1.0) mg/dL AST 15 (15-37) U/L ALT < 6 L (12-78) U/L Alkaline Phosphatase 144 H (46-116) U/L Serum Total Protein 7.6 (6.4-8.2) gm/dL Albumin 3.5 (3.4-5.0) g/dL Ur Collection Type Pending Urine Color Pending Urine Appearance Pending Urine pH Pending Ur Specific [place] Pending Urine Protein Pending Urine Glucose (UA) Pending Urine Ketones Pending Urine Nitrite Pending Urine Bilirubin Pending Urine Urobilinogen Pending Urine WBC (Auto) Pending Urine RBC (Auto) Pending Specimen Received Pending 09/23/16 09/23/16 Range/Units 11:26 11:25 WBC (4.0-10.5) K/mm3 RBC (4.1-5.4) M/mm3 Hgb (12.0-16.0) gm/dl Hct (35-47) % MCV (78-100) fl MCH (26-32) pg MCHC (32-36) g/dl RDW (11.5-14.0) % Plt Count (150-450) K/mm3 MPV (6-9.5) fl Segmented Neutrophils (36.0-66.0) % Lymphocytes (Manual) (24-44) % Monocytes (Manual) (0.0-12.0) % Basophils (Manual) (0.0-1.0) % Differential Comment Atypical Lymphocytes % Platelet Estimate (NORMAL) Anisocytosis VBG pH 7.40 (7.32-7.42) VBG pCO2 at Pat Temp 52 (42-55) mm/Hg VBG pO2 at Pat Temp 28 (25-40) mm/Hg VBG HCO3 32.2 H* (22-28) meq/L VBG O2 Sat (Dean) 60.0 L (95-100) VBG Base Excess 6.4 H (-2.0-2.0) VBG Hemoglobin 9.4 VBG Carboxyhemoglobin 3.4 (0.0-6.9) % T HGB POC Potassium 5.6 H (3.5-5.1) Glucose 408 H (70-110) Sodium (136-145) mEq/L Potassium (3.5-5.1) mEq/L Chloride (98-107) mEq/L Carbon Dioxide (21-32) mEq/L Anion Gap (5-15) MEQ/L BUN (9-20) mg/dL Creatinine (0.55-1.30) mg/dl Estimated GFR ML/MIN Lactic Acid 1.8 (0.4-2.0) Calcium (8.5-10.1) mg/dL Total Bilirubin (0.2-1.0) mg/dL AST (15-37) U/L ALT (12-78) U/L Alkaline Phosphatase (46-116) U/L Serum Total Protein (6.4-8.2) gm/dL Albumin (3.4-5.0) g/dL Ur Collection Type Urine Color Urine Appearance Urine pH Ur Specific [place] Urine Protein Urine Glucose (UA) Urine Ketones Urine Nitrite Urine Bilirubin Urine Urobilinogen Urine WBC (Auto) Urine RBC (Auto) Specimen Received - Progress Progress Note: 09/23/16 14:28 Pt stable. Spoke to Dr Stephanie De La Garza and she advised release back to [facility] on levaquin 250 daily for 5 days and cover here with humalog. She knows pt well and she was released from [facility] recently. Counseled pt/family regarding: lab results, diagnosis, need for follow-up, rad results - Departure Time of Disposition: 14:29 Departure Disposition: Extended Care Facility Clinical Impression: Hyperglycemia, Chronic UTI, Dementia Condition: Fair Critical Care Time: No Referrals: CUAUHTEMOC DE LA GARZA [Primary Care Provider] - Instructions: Hyperglycemia -- Adult Additional Instructions: Call Dr Stephanie De La Garza of further orders regarding sugars. Rx levaquin 250mg daily for 5 days thru G tube for UTI. Prescriptions: Levofloxacin [Levaquin] 250 mg G-TUBE DAILY #4 tablet
[2016-09-23 12:05] LABS: ALBUMIN 3.5 g/dL (3.4-5.0); ALKALINE PHOSPHATASE 144 U/L (46-116); ANION GAP 14.3 MEQ/L (5-15); BILIRUBIN,TOTAL 0.3 mg/dL (0.2-1.0); BLOOD UREA NITROGEN 45 mg/dL (9-20); CHLORIDE 97 mEq/L (98-107); Carbon Dioxide 28.2 mEq/L (21-32); Glucose 436 MG/DL (70-110); Potassium 5.3 mEq/L (3.5-5.1); SGOT/AST 15 U/L (15-37); SODIUM 134 mEq/L (136-145); Total Protein 7.6 gm/dL (6.4-8.2)
[2016-09-23 12:29] LABS: SGPT/ALT < 6 U/L (12-78)
[2016-09-23 12:58] LABS: ATYPICAL LYMPHS 1 %; Basophil 1 % (0.0-1.0); Total Cells Counted 100
[2016-09-23 13:00] LABS: ANISOCYTOSIS 1+; Platelet Estimate NORMAL (NORMAL)
[2016-09-23] MEDS ORDERED: Levofloxacin 250MG Tablet G-TUBE ONE (14:26)
[2016-09-23 14:35] VITALS: O2SAT 98
[2016-09-23] MEDS ORDERED: Levofloxacin 250MG Tablet ONE (14:37)
[2016-09-23 14:44] LABS: Bacteria FEW /HPF (NEGATIVE); Epithelial Cells FEW /HPF (FEW); Yeast FEW /HPF (NEGATIVE)
[2016-09-23 15:22] VITALS: BP 128/72; PULSE 68
== END 2016-09-23 15:21 ==
LOC: ED 11:21
DX: R73.9 Hyperglycemia, unspecified (principal); N39.0 Urinary tract infection, site not specified; F03.90 Unspecified dementia, unspecified severity, without behavioral disturbance, psychotic disturbance, mood disturbance, and anxiety; Z87.440 Personal history of urinary (tract) infections; E11.9 Type 2 diabetes mellitus without complications; Z79.4 Long term (current) use of insulin; Z79.899 Other long term (current) drug therapy; I10 Essential (primary) hypertension; E78.00 Pure hypercholesterolemia, unspecified; J44.9 Chronic obstructive pulmonary disease, unspecified
CPT/HCPCS: 36000; 36415; 51702; 71010; 80053; 81000; 82805; 82947; 82962; 83605; 85025; 87040; 87077; 87086; 96360; 96361; 99284; A9270-GY

== ENCOUNTER 2016-11-04 10:23 | Observation (INO) | payer MEDICARE, OTHER ==
--- NOTE | 2016-11-04 11:05 | ERPHSYRPT ---
- History of Present Illness Time Seen by Provider: 11/04/16 10:50 Source: patient, residential records Exam Limitations: clinical condition Patient Subjective Stated Complaint: abnormal k+ in morning labs Triage Nursing Assessment: per residential--they got call today that k+ lab draw was abnormal. on arrival, pt alert and oriented--slow to answer but appropriate. skin warma dn dry. decub dressing from residential to rt heel and coccyx. incont of stool. john intact. o2 on per residential Timing/Duration: today Severity: moderate Modifying Factors: Improves With: nothing Associated Symptoms: denies symptoms Allergies/Adverse Reactions: ranitidine Allergy (Verified 11/04/16 10:42) Home Medications: Aspirin 81 mg G-TUBE DAILY 09/23/16 [History] Bumetanide 1 mg [Bumex 1 mg] 1 mg PEG DAILY 09/23/16 [History] Carbidopa/Levodopa [Carbidopa-Levo 25-100 Tab] 1 each PEG BID 09/23/16 [History] Darbepoetin Pollo in Polysorbat [Aranesp] 60 mcg IJ UD 09/23/16 [History] Entacapone 200 mg [Comtan 200 MG] 200 mg PEG BID 09/23/16 [History] Insulin Aspart [NovoLOG Insulin] 1 unit SQ UD 09/23/16 [History] Insulin Detemir [Levemir] 5 unit SQ HS 09/23/16 [History] Insulin Detemir [Levemir] 17 unit SQ DAILY 09/23/16 [History] Metoprolol Tartrate 25 mg [Lopressor 25MG Tab] 25 mg PEG BID 09/23/16 [ History] Montelukast Sodium [Singulair] 10 mg PEG DAILY 09/23/16 [History] Simvastatin 10 mg PEG HS 09/23/16 [History] Ferrous Sulfate 325 mg PO DAILY 11/04/16 [History] Gabapentin [Neurontin] 100 mg PO HS 11/04/16 [History] Hx Tetanus, Diphtheria Vaccination/Date Given: Yes Hx Influenza Vaccination/Date Given: Yes Hx Pneumococcal Vaccination/Date Given: Yes Immunizations Up to Date: Yes - Review of Systems Constitutional: No Symptoms Eyes: No Symptoms Ears, Nose, & Throat: No Symptoms Respiratory: No Symptoms Cardiac: No Symptoms Abdominal/Gastrointestinal: Diarrhea Musculoskeletal: Other (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 Right heel decubitus.) Neurological: No Symptoms, Other (Baseline slower responses. No actual diagnosis of Parkinson's, but takes Sinemet.) Endocrine: No Symptoms Hematologic/Lymphatic: No Symptoms Immunological/Allergic: No Symptoms - Past Medical History Pertinent Past Medical History: Yes Neurological History: No Pertinent History, Other ENT History: Cataracts Cardiac History: Arrhythmia, High Cholesterol, Hypertension Respiratory History: COPD Endocrine Medical History: Diabetes Type II Musculoskeletal History: Fractures, Osteoarthritis, Other (Parkinson's ) GI Medical History: No Pertinent History History: No Pertinent History Psycho-Social History: Anxiety Female Reproductive Disorders: No Pertinent History Other Medical History: tremors - Past Surgical History Past Surgical History: Yes Neuro Surgical History: No Pertinent History Cardiac: No Pertinent History, Vascular Surgery Respiratory: No Pertinent History Gastrointestinal: No Pertinent History Genitourinary: No Pertinent History Musculoskeletal: Orthopedic Surgery Female Surgical History: No Pertinent History Other Surgical History: cataract surgery on left eye; right hip surgery; left leg vein surgery - Social History Smoking Status: Never smoker Exposure to second hand smoke: No Drug Use: none Patient Lives Alone: No - Female History Hx Now: No - Nursing Vital Signs Nursing Vital Signs: Initial Vital Signs Temperature 98.3 F Temperature Source Oral Pulse Rate 84 Respiratory Rate 18 Blood Pressure [Right Arm] 121/61 Pain Intensity 0 - Physical Exam General Appearance: no apparent distress Eye Exam: eyes nml inspection Ears, Nose, Throat Exam: normal ENT inspection Neck Exam: normal inspection, non-tender, supple Respiratory Exam: normal breath sounds, lungs clear, airway intact Cardiovascular Exam: regular rate/rhythm, normal heart sounds, normal peripheral pulses Gastrointestinal/Abdomen Exam: soft, normal bowel sounds, other (PEG clear) Back Exam: normal inspection Extremity Exam: pelvis stable Neurologic Exam: alert, cooperative, normal mood/affect Skin Exam: normal color, warm, dry, decubitus (as above and documented in nurse' s notes) SpO2 Interpretation: normal SpO2: 99 Oxygen Delivery: Nasal Cannula - Course Nursing assessment & vital signs reviewed: Yes EKG Interpreted by Me: RATE, NORMAL AXIS, Other (Likely A Flutter with variable degree AVB) Ordered Tests: Active Orders 24 hr Category Date Time Status 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 Manager/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 STAT Care 11/04/16 10:47 Active Cath [Catheter-[place] John] STAT Care 11/04/16 10:47 Active EKG-ER Only STAT Care 11/04/16 11:12 Active IV Insertion STAT Care 11/04/16 10:48 Active CULTURE,URINE Stat Lab 11/04/16 11:12 Received Potassium Stat Lab 11/04/16 11:12 Completed UA W/ MICROSCOPIC Stat Lab 11/04/16 11:12 Completed Medication Summary Generic Name Dose Route Start Last Admin Trade Name Freshiv PRN Reason Stop Dose Admin Potassium Chloride 100 mls @ 50 mls/hr 11/04/16 11:15 11/04/16 11:33 Potassium Chloride 20 Meq In Water 100ml IV 11/04/16 15:14 Not Given Q2H ABIOLA Sodium Chloride 1,000 mls @ 50 mls/hr 11/04/16 11:15 11/04/16 11:22 Sodium Chloride 0.9% 1000 Ml IV 12/04/16 11:14 50 mls/hr .Q20H ABIOLA Administration Potassium Chloride 40 meq/ 272 mls @ 68 mls/hr 11/04/16 11:30 11/04/16 11:32 Lidocaine HCl 2 ml/ Sodium IV 11/04/16 15:29 68 mls/hr Chloride 1XONLY ONE Administration Discontinued Medications Generic Name Dose Route Start Last Admin Trade Name Manny PRN Reason Stop Dose Admin Pantoprazole Sodium 40 mg 11/04/16 11:10 11/04/16 11:22 Protonix 40 Mg Iv IV 11/04/16 11:11 40 mg STAT ONE Administration Pantoprazole Sodium Confirm 11/04/16 11:20 Protonix 40 Mg Iv Administered 11/04/16 11:21 Dose 40 mg IV .STK-MED ONE Potassium Chloride 40 meq 11/04/16 11:14 11/04/16 11:22 Potassium Chl 40 Meq/30 Ml Oral Solution PEG 11/04/16 11:15 40 meq ONCE STA Administration Potassium Chloride Confirm 11/04/16 11:21 Potassium Chl 40 Meq/30 Ml Oral Solution Administered 11/04/16 11:22 Dose 40 meq .ROUTE .STK-MED ONE Lab/Rad Data: Laboratory Result Diagrams 11/04/16 11:12 Laboratory Results 11/04/16 11/04/16 Range/Units 11:12 11:12 Potassium 1.9 L* (3.5-5.1) mEq/L Ur Collection Type CATH Urine Color YELLOW (YELLOW) Urine Appearance SLIGHTLY CLOUDY (CLEAR) Urine pH 5.0 (5-6) Ur Specific [place] 1.015 (1.005-1.025) Urine Protein NEGATIVE (Negative) Urine Glucose (UA) NEGATIVE (NEGATIVE) mg/dL Urine Ketones NEGATIVE (NEGATIVE) Urine Nitrite POSITIVE (NEGATIVE) Urine Bilirubin NEGATIVE (NEGATIVE) Urine Urobilinogen 0.2 (0-1) mg/dL Urine WBC (Auto) MODERATE (NEGATIVE) Urine RBC (Auto) MODERATE (0-5) Hansel/ul Urine Microscopic RBC 5-10 (0-2) /HPF Urine Microscopic WBC 50-100 (0-5) /HPF Ur Epithelial Cells FEW (FEW) /HPF Urine Bacteria MANY (NEGATIVE) /HPF Hyaline Casts 0-2 (0-2) /LPF Specimen Received 11/04/16 1149 - Progress Discussed with : Henrique Madison Will see patient in: hospital (full admit) Counseled pt/family regarding: lab results, diagnosis, need for follow-up - Departure Time of Disposition: 13:45 Departure Disposition: In-patient Admission Clinical Impression: Hypokalemia UTI (urinary tract infection) Qualifiers: Urinary tract infection type: catheter-associated UTI Indwelling urinary catheter type: indwelling urethral catheter Encounter type: initial encounter Qualified Code(s): T83.511A - Infection and inflammatory reaction due to indwelling urethral catheter, initial encounter; N39.0 - Urinary tract infection , site not specified Condition: Serious Critical Care Time: Yes Critical Care Time(excluding separately billable procedures): 75-104 minutes
[2016-11-04] MEDS ORDERED: PROTONIX 40 MG IV IV ONE ×2 (11:10→11:20)
[2016-11-04] MEDS ORDERED: POTASSIUM CHL 40 MEQ/30 ML ORAL SOLUTION PEG STA (11:14)
[2016-11-04] MEDS ORDERED: Sodium Chloride 0.9% 1000 ML 1,000 ML IV SCH (11:15)
[2016-11-04] MEDS ORDERED: POTASSIUM CHLORIDE 20 mEq IN WATER 100ML 100 ML IV SCH (11:15)
[2016-11-04] MEDS ORDERED: Sodium Chloride 0.9% 1000 ML 1,000 ML ONE (11:20)
[2016-11-04] MEDS ORDERED: POTASSIUM CHL 40 MEQ/30 ML ORAL SOLUTION ONE (11:21)
[2016-11-04] MEDS ORDERED: Potassium Chloride 40 MEQ/20 ML VIAL 40 MEQ, XYLOCAINE 1% HCL 20 ML MDV*** 2 ML in Sodi... IV ONE (11:30)
[2016-11-04 11:48] LABS: Collection Type CATH
[2016-11-04 11:49] LABS: COMPLETE URINE MICROSCOPIC? YES
[2016-11-04 11:52] LABS: ADD URINE CULTURE? YES (NO); Bacteria MANY /HPF (NEGATIVE); Epithelial Cells FEW /HPF (FEW); Hyaline Casts 0-2 /LPF (0-2); WBC 50-100 /HPF (0-5)
[2016-11-04] MEDS ORDERED: ROCEPHIN 1 Gm-D5w 50 ml Bag** 1 G/50 ML IVPB IV STA (13:57)
[2016-11-04] MEDS ORDERED: ROCEPHIN 1 Gm-D5w 50 ml Bag** 1 G/50 ML IVPB IV ONE (14:02)
[2016-11-04] MEDS ORDERED: DILAUDID 2 MG INJECTION IV PRN (14:45)
[2016-11-04] MEDS ORDERED: Zofran 4 MG/2 ML VIAL IV PRN (14:45)
[2016-11-04 16:23] VITALS: O2SAT 100
[2016-11-04] MEDS: SODIUM CHLORIDE 0.9% W/ 40 mEq KCL 1000ML 1,000 ML IV SCH (18:45)
[2016-11-04] MEDS ORDERED: TYLENOL 325 MG PEG PRN (19:06)
[2016-11-04] MEDS: Sinemet 25/100 MG PEG SCH (21:40)
[2016-11-04] MEDS: Flagyl 500 MG PEG SCH (21:40)
[2016-11-04] MEDS: Lopressor 25MG Tab PEG SCH (21:40)
[2016-11-04] MEDS: NYSTOP POWDER 15 GM TP SCH (21:40)
[2016-11-04] MEDS: POTASSIUM CHLORIDE 20 mEq IN WATER 100ML 100 ML IV SCH ×2 (21:41→23:43)
[2016-11-04] MEDS ORDERED: Lantus Insulin SQ SCH (22:00)
[2016-11-04] MEDS ORDERED: Neurontin 100 MG PEG SCH (22:00)
[2016-11-04] MEDS ORDERED: Zocor 10MG PEG SCH (22:00)
[2016-11-04] MEDS ORDERED: COMTAN 200 MG PEG SCH (22:00)
[2016-11-05] MEDS: NovoLOG Insulin SQ PRN ×3 (00:15→12:34)
[2016-11-05] MEDS: SODIUM CHLORIDE 0.9% W/ 40 mEq KCL 1000ML 1,000 ML IV SCH (04:19)
[2016-11-05 06:00] LABS: ANION GAP 10.9 MEQ/L (5-15); BLOOD UREA NITROGEN 18 mg/dL (9-20); CHLORIDE 112 mEq/L (98-107); Carbon Dioxide 26.2 mEq/L (21-32); Glucose 125 MG/DL (70-110); Potassium 3.6 mEq/L (3.5-5.1); SODIUM 146 mEq/L (136-145)
[2016-11-05] MEDS ORDERED: MEDICATION INTERVENTION MC SCH (07:30)
[2016-11-05] MEDS ORDERED: Lantus Insulin SQ SCH (08:00)
[2016-11-05] MEDS: Sinemet 25/100 MG PEG SCH (09:40)
[2016-11-05] MEDS: Flagyl 500 MG PEG SCH (09:40)
[2016-11-05] MEDS: Lopressor 25MG Tab PEG SCH (09:41)
[2016-11-05] MEDS: NYSTOP POWDER 15 GM TP SCH (09:42)
[2016-11-05] MEDS ORDERED: FEOSOL 325 MG PEG SCH (10:00)
[2016-11-05] MEDS ORDERED: ROCEPHIN 1 Gm-D5w 50 ml Bag** 1 G/50 ML IVPB IV SCH (10:00)
[2016-11-05] MEDS ORDERED: PROTONIX 40 MG IV IV SCH (10:00)
[2016-11-05] MEDS ORDERED: BABY ASPIRIN 81 MG CHEW PEG SCH (10:00)
[2016-11-05] MEDS ORDERED: Singulair 10 MG PEG SCH (10:00)
[2016-11-05] MEDS ORDERED: NON-FORMULARY ITEM (Aspirin [Aspirin] 81 MG) G-TUBE SCH (10:00)
[2016-11-05] MEDS ORDERED: BUMEX 1 MG PEG SCH (10:00)
[2016-11-05] MEDS ORDERED: INSULIN DETEMIR 17 UNIT SQ SCH (10:00)
--- NOTE | 2016-11-05 12:57 | PCM.SSS ---
History of Present Illness - Chief Complaint Chief Complaint: Low K History of Present Illness: is a 71 year old female.they got call today that k+ lab draw was abnormal. on arrival, pt alert and oriented--slow to answer but appropriate. skin warma dn dry. decub dressing from usp to rt heel and coccyx. incont of stool. john intact. o2 on per usp - Review of Systems Constitutional: No Fever, No Chills Eyes: No Symptoms Ears, Nose, & Throat: No Symptoms Respiratory: No Cough, No Short Of Breath Cardiac: No Chest Pain, No Edema, No Syncope Abdominal/Gastrointestinal: No Abdominal Pain, No Nausea, No Vomiting, No Diarrhea Genitourinary Symptoms: No Dysuria Musculoskeletal: No Back Pain, No Neck Pain Skin: No Rash Neurological: No Dizziness, No Focal Weakness, No Sensory Changes Psychological: No Symptoms Endocrine: No Symptoms Hematologic/Lymphatic: No Symptoms Immunological/Allergic: No Symptoms Medications & Allergies Home Medications: Home Medication List Aspirin 81 mg G-TUBE DAILY 09/23/16 [History Confirmed 11/04/16] Bumetanide 1 mg [Bumex 1 mg] 1 mg PEG DAILY 09/23/16 [History Confirmed ] Carbidopa/Levodopa [Carbidopa-Levo 25-100 Tab] 1 each PEG BID 09/23/16 [History Confirmed 11/04/16] Darbepoetin Pollo in Polysorbat [Aranesp] 60 mcg IJ UD 09/23/16 [History Confirmed 11/04/16] Entacapone 200 mg [Comtan 200 MG] 200 mg PEG BID 09/23/16 [History Confirmed 11/04/16] Insulin Aspart [NovoLOG Insulin] 1 unit SQ UD 09/23/16 [History Confirmed ] Insulin Detemir [Levemir] 5 unit SQ HS 09/23/16 [History Confirmed 11/04/16] Insulin Detemir [Levemir] 17 unit SQ DAILY 09/23/16 [History Confirmed 11/04/16] Metoprolol Tartrate 25 mg [Lopressor 25MG Tab] 25 mg PEG BID 09/23/16 [ History Confirmed 11/04/16] Montelukast Sodium [Singulair] 10 mg PEG DAILY 09/23/16 [History Confirmed 11/04] Simvastatin 10 mg PEG HS 09/23/16 [History Confirmed 11/04/16] Acetaminophen 325 mg [Tylenol 325 mg] 650 mg PO Q4HPRN PRN 11/04/16 [ History Confirmed 11/04/16] Ferrous Sulfate 325 mg PO DAILY 11/04/16 [History Confirmed 11/04/16] Gabapentin [Neurontin] 100 mg PO HS 11/04/16 [History Confirmed 11/04/16] Nystatin Powder 15 gm [Nystop Powder 15 gm] 1 applic TP BID 11/04/16 [ History Confirmed 11/04/16] Metronidazole [Flagyl] 500 mg PEG TID #30 tablet 11/05/16 [Rx] Allergies/Adverse Reactions: Allergies Allergy/AdvReac Type Severity Reaction Status Date / Time ranitidine Allergy Verified 11/04/16 10:42 - Past Medical History Past Medical History: Yes Neurological History: No Pertinent History, Other ENT History: Cataracts, Other Cardiac History: Arrhythmia, High Cholesterol, Hypertension Respiratory History: CHF, COPD Endocrine Medical History: Diabetes Type II Musculoskelatal History: Fractures, Osteoarthritis, Other GI Medical History: No Pertinent History History: Other Pyscho-Social History: Anxiety Reproductive Disorders: No Pertinent History Comment: dysphagia; neuromuscular bladder dysfunction; pressure ulcer/cocyx. tremors - Female History Are you now?: No - Past Surgical History Past Surgical History: Yes Neuro Surgical History: No Pertinent History Cardiac History: No Pertinent History, Vascular Surgery Respiratory Surgery: No Pertinent History GI Surgical History: Other Genitourinary Surgical Hx: No Pertinent History Musculskeletal Surgical Hx: Orthopedic Surgery Female Surgical History: No Pertinent History Other Surgical History: cataract surgery on left eye; right hip surgery; left leg vein surgery; PEG tube placement - Social History Smoking Status: Never smoker Exposure to second hand smoke: No Alcohol: None Drug Use: none - Physical Exam Vital Signs: Vital Signs - 24 hr Temp Pulse Resp BP Pulse Ox 11/05/16 08:00 98.4 F 85 16 143/73 100 11/05/16 07:27 74 16 100 11/05/16 04:00 99.3 F 72 18 112/46 100 11/05/16 00:01 81 11/05/16 00:00 99.5 F 88 17 123/56 100 11/04/16 20:36 100 11/04/16 20:00 16 11/04/16 19:58 97.7 F 83 13 124/63 100 11/04/16 16:22 80 18 100 11/04/16 16:00 91 H 14 147/74 100 11/04/16 15:53 98.5 F 85 14 130/67 100 11/04/16 14:00 76 20 123/81 11/04/16 13:51 99 11/04/16 13:07 84 18 121/61 100 Oxygen-Last 24 hours O2 Percentage 3 Liters = 32% O2 Percentage 3 Liters = 32% O2 Percentage 3 Liters = 32% O2 Percentage 3 Liters = 32% O2 Percentage 3 Liters = 32% O2 Percentage 3 Liters = 32% O2 Percentage 2 Liters = 28% General Appearance: no apparent distress, alert Neurologic Exam: alert, No motor deficits Eye Exam: PERRL/EOMI, eyes nml inspection Ears, Nose, Throat Exam: normal ENT inspection, TMs normal, pharynx normal, moist mucous membranes Neck Exam: normal inspection, non-tender, supple, full range of motion Respiratory Exam: normal breath sounds, lungs clear, No respiratory distress Cardiovascular Exam: regular rate/rhythm, normal heart sounds, normal peripheral pulses Gastrointestinal/Abdomen Exam: soft, normal bowel sounds, No tenderness, No mass Back Exam: normal inspection, normal range of motion, No CVA tenderness, No vertebral tenderness Extremity Exam: normal inspection, normal range of motion, pelvis stable Skin Exam: normal color, warm, dry, No rash Lymphatic Exam: No adenopathy Results - Labs Lab/Micro Results: Accuchecks Date 11/05/16 Date 11/05/16 Date 11/05/16 Date 11/04/16 Time 07:30 Time 04:00 Time 00:24 Time 20:16 Accucheck Value: 169 Accucheck Value: 148 Accucheck Value: 240 Accucheck Value: 67 Accucheck Value: 156 Lab Results-Last 24 Hours 11/04/16 11/04/16 11/05/16 Range/Units 15:00 20:00 05:15 Sodium 146 H (136-145) mEq/L Potassium 2.8 L* 3.6 (3.5-5.1) mEq/L Chloride 112 H (98-107) mEq/L Carbon Dioxide 26.2 (21-32) mEq/L Anion Gap 10.9 (5-15) MEQ/L BUN 18 (9-20) mg/dL Creatinine 0.67 (0.55-1.30) mg/dl Estimated GFR > 60 ML/MIN Glucose 125 H (70-110) MG/DL Calcium 8.5 (8.5-10.1) mg/dL Stl C. diff Tox B Gene POSITIVE (NEGATIVE) C.difficile 027-NAP1-B1 POSITIVE (NEGATIVE) Accuchecks Date 11/05/16 Date 11/05/16 Date 11/05/16 Date 11/04/16 Time 07:30 Time 04:00 Time 00:24 Time 20:16 Accucheck Value: 169 Accucheck Value: 148 Accucheck Value: 240 Accucheck Value: 67 Accucheck Value: 156 - Other Procedures and Tests Respiratory Therapy 11/04/16 16:22 Oxygen NASAL CANNULA 3 lpm Assessment/Plan (1) C. difficile diarrhea Current Visit: Yes Status: Acute Assessment & Plan: will continue flagyl Code(s): A04.7 - ENTEROCOLITIS DUE TO CLOSTRIDIUM DIFFICILE (2) Hypokalemia Current Visit: Yes Status: Acute Assessment & Plan: resolved Code(s): E87.6 - HYPOKALEMIA Hospital Summary - Hospital Course Hospital Course: Chief Complaint Diagnosis Low K Allergies Allergy/AdvReac Type Severity Reaction Status Date / Time ranitidine Allergy Verified 11/04/16 10:42 Vital Signs (Last 24 hours) Temp Pulse Resp BP Pulse Ox 11/05/16 08:00 98.4 F 85 16 143/73 100 11/05/16 07:27 74 16 100 11/05/16 04:00 99.3 F 72 18 112/46 100 11/05/16 00:01 81 11/05/16 00:00 99.5 F 88 17 123/56 100 11/04/16 20:36 100 11/04/16 20:00 16 11/04/16 19:58 97.7 F 83 13 124/63 100 11/04/16 16:22 80 18 100 11/04/16 16:00 91 H 14 147/74 100 11/04/16 15:53 98.5 F 85 14 130/67 100 11/04/16 14:00 76 20 123/81 11/04/16 13:51 99 11/04/16 13:07 84 18 121/61 100 Home Medications Medication Instructions Recorded Confirmed Last Taken Type Acetaminophen 325 mg [Tylenol 650 mg PO Q4HPRN PRN 11/04/16 11/04/16 Unknown History 325 mg] Ferrous Sulfate 325 mg PO DAILY 11/04/16 11/04/16 11/04/16 History Gabapentin [Neurontin] 100 mg PO HS 11/04/16 11/04/16 11/03/16 History Nystatin Powder 15 gm [Nystop 1 applic TP BID 11/04/16 11/04/16 11/04/16 History Powder 15 gm] Metronidazole [Flagyl] 500 mg PO TID #0 tablet 11/05/16 Unknown Rx Current Medications Generic Name Dose Route Start Last Admin Trade Name Freq PRN Reason Stop Dose Admin Acetaminophen 650 mg 11/04/16 19:06 Tylenol 325 Mg PEG 12/04/16 19:05 Q4H PRN PRN PAIN AND/OR FEVER Aspirin 81 mg 11/05/16 10:00 11/05/16 09:39 Baby Aspirin 81 Mg Chew PEG 12/05/16 09:59 81 mg DAILY ABIOLA Administration Bumetanide 1 mg 11/05/16 10:00 11/05/16 09:39 Bumex 1 Mg PEG 12/05/16 09:59 1 mg DAILY ABIOLA Administration Carbidopa/Levodopa 1 tab 11/04/16 22:00 11/05/16 09:40 Sinemet 25/100 Mg PEG 12/04/16 21:59 1 tab BID ABIOLA Administration Ferrous Sulfate 325 mg 11/05/16 10:00 11/05/16 09:41 Feosol 325 Mg PEG 12/05/16 09:59 325 mg DAILY ABIOLA Administration Gabapentin 100 mg 11/04/16 22:00 11/04/16 21:40 Neurontin 100 Mg PEG 12/04/16 21:59 100 mg HS ABIOLA Administration Hydromorphone HCl 0.5 mg 11/04/16 14:45 Dilaudid 2 Mg Injection IV 11/09/16 14:44 Q4H PRN PRN PAIN Ceftriaxone Sodium/Dextrose 1 g in 50 mls @ 100 mls/hr 11/05/16 10:00 09:41 Rocephin 1 Gm-D5w 50 Ml Bag IV 12/05/16 09:59 100 mls/hr Q24H10 ABIOLA Administration Potassium Chloride/Sodium Chloride 1,000 mls @ 100 mls/hr 11/04/16 14:45 12/15 04:19 Sodium Chloride 0.9% W/ 40 Meq Kcl 1000ml IV 12/04/16 14:44 100 mls/hr .Q10H ABIOLA Administration Insulin Aspart 0 unit 11/04/16 14:45 11/05/16 12:34 Novolog Insulin SQ 12/04/16 14:44 11 unit UD PRN Administration HYPERGLYCEMIA Insulin Glargine 5 unit 11/04/16 22:00 11/04/16 22:11 Lantus Insulin SQ 12/04/16 21:59 Not Given HS ABIOLA Insulin Glargine 17 unit 11/05/16 08:00 11/05/16 09:42 Lantus Insulin SQ 12/05/16 07:59 17 unit AMINSULIN ABIOLA Administration Metoprolol Tartrate 25 mg 11/04/16 22:00 11/05/16 09:41 Lopressor 25mg Tab PEG 12/04/16 21:59 25 mg BID ABIOLA Administration Metronidazole 500 mg 11/04/16 22:00 11/05/16 09:40 Flagyl 500 Mg PEG 12/04/16 21:59 500 mg TID ABIOLA Administration Montelukast Sodium 10 mg 11/05/16 10:00 11/05/16 09:41 Singulair 10 Mg PEG 12/05/16 09:59 10 mg DAILY ABIOLA Administration Nystatin 1 gm 11/04/16 22:00 11/05/16 09:42 Nystop Powder 15 Gm TP 11/07/16 21:59 1 gm BID ABIOLA Administration Ondansetron HCl 4 mg 11/04/16 14:45 Zofran 4 Mg/2 Ml Vial IV 12/04/16 14:44 Q6H PRN PRN NAUSEA/VOMITING Pantoprazole Sodium 40 mg 11/05/16 10:00 11/05/16 09:39 Protonix 40 Mg Iv IV 12/05/16 09:59 40 mg Q24H10 ABIOLA Administration Simvastatin 10 mg 11/04/16 22:00 11/04/16 21:39 Zocor 10mg PEG 12/04/16 21:59 10 mg HS ABIOLA Administration Discontinued Medications Generic Name Dose Route Start Last Admin Trade Name Jensenq PRN Reason Stop Dose Admin Entacapone 200 mg 11/04/16 22:00 11/04/16 22:11 Comtan 200 Mg PEG 12/04/16 21:59 Not Given BID ABIOLA Potassium Chloride 100 mls @ 50 mls/hr 11/04/16 11:15 11/04/16 11:33 Potassium Chloride 20 Meq In Water 100ml IV 11/04/16 15:14 Not Given Q2H ABIOLA Sodium Chloride 1,000 mls @ 50 mls/hr 11/04/16 11:15 11/04/16 11:22 Sodium Chloride 0.9% 1000 Ml IV 12/04/16 11:14 50 mls/hr .Q20H ABIOLA Administration Potassium Chloride 40 meq/ 272 mls @ 68 mls/hr 11/04/16 11:30 11/04/16 11:32 Lidocaine HCl 2 ml/ Sodium IV 11/04/16 15:29 68 mls/hr Chloride 1XONLY ONE Administration Ceftriaxone Sodium/Dextrose 1 g in 50 mls @ 100 mls/hr 11/04/16 13:57 14:21 Rocephin 1 Gm-D5w 50 Ml Bag IV 11/04/16 14:26 100 mls/hr STAT STA Administration Ceftriaxone Sodium/Dextrose Confirm 11/04/16 14:02 Rocephin 1 Gm-D5w 50 Ml Bag Administered 11/04/16 14:03 Dose 1 g in 50 mls @ ud IV .STK-MED ONE Sodium Chloride Confirm 11/04/16 11:20 Sodium Chloride 0.9% 1000 Ml Administered 11/04/16 11:21 Dose 1,000 mls @ ud .ROUTE .STK-MED ONE Potassium Chloride 100 mls @ 50 mls/hr 11/04/16 21:30 11/04/16 23:43 Potassium Chloride 20 Meq In Water 100ml IV 11/05/16 01:29 50 mls/hr Q2H ABIOLA Administration Pantoprazole Sodium 40 mg 06/06/17 11:10 11/04/16 11:22 Protonix 40 Mg Iv IV 11/04/16 11:11 40 mg STAT ONE Administration Pantoprazole Sodium Confirm 11/04/16 11:20 Protonix 40 Mg Iv Administered 11/04/16 11:21 Dose 40 mg IV .STK-MED ONE Potassium Chloride 40 meq 11/04/16 11:14 11/04/16 11:22 Potassium Chl 40 Meq/30 Ml Oral Solution PEG 11/04/16 11:15 40 meq ONCE STA Administration Potassium Chloride Confirm 11/04/16 11:21 Potassium Chl 40 Meq/30 Ml Oral Solution Administered 11/04/16 11:22 Dose 40 meq .ROUTE .STK-MED ONE Intake & Output (Last 24 hours) 11/03/16 11/04/16 11/05/16 11/06/16 11:59 11:59 11:59 11:59 Intake Total 2500 Output Total 100 675 Balance -100 1825 Weight 58.06 kg 58.5 kg Microbiology Results (Last 24 hours) 11/04/16 14:32 Stool Stool Culture - Pending 11/04/16 11:12 Catherized - Pending Laboratory Results (Last 24 hours) 11/05/16 11/04/16 11/04/16 05:15 20:00 15:00 Sodium 146 H Potassium 3.6 2.8 L* Chloride 112 H Carbon Dioxide 26.2 Anion Gap 10.9 BUN 18 Creatinine 0.67 Estimated GFR > 60 Glucose 125 H Calcium 8.5 Stl C. diff Tox B Gene POSITIVE C.difficile 027-NAP1-B1 POSITIVE Orders (Last 24 hours) Category Date Time Status Bedrest ROUTINE Activity 11/04/16 14:45 Active Accucheck Q4H Care 11/04/16 14:45 Active Admission/Status Order ROUTINE Care 11/04/16 14:45 Active Catheter-[place] John ROUTINE Care 11/04/16 14:45 Completed Code Status Order ROUTINE Care 11/04/16 14:45 Active Fall Protocol Q1H Care 11/04/16 14:45 Active IV Care Q1H Care 11/04/16 14:45 Active Isolation, Initiate & Maintain Q6H Care 11/04/16 14:45 Active Telemetry ROUTINE Care 11/04/16 14:45 Active Tube Feeding [Administer Tube Feeding] ASORD Care 11/04/16 19:00 Active Weight,Daily 0600 Care 11/04/16 14:45 Active Infection Control Consult ROUTINE Cons 11/04/16 16:47 Completed Infection Control Consult ROUTINE Cons 11/04/16 17:21 Completed Infection Control Consult ROUTINE Cons 11/04/16 18:49 Completed Infection Control Consult ROUTINE Cons 11/04/16 21:30 Completed Hazardous Waste Material Technician/Discharge Plan ROUTINE Cons 11/04/16 16:47 Active 1800 Calorie ADA Diet 11/04/16 Dinner Active Cardiac Diet Diet 11/04/16 Dinner Active Nutritional Admission Screen once Diet 11/04/16 16:47 Completed Nutritional Consult ROUTINE Diet 11/04/16 19:37 Active Prostat 64 Diet 11/05/16 Dinner Active Pureed Diet Diet 11/04/16 Dinner Active Discharge Routine Discharge 11/05/16 12:00 Ordered BMP AM.LAB Lab 11/05/16 05:15 Completed CDIFF [C.Difficle by PCR] Urgent Lab 11/04/16 15:00 Completed Potassium Urgent Lab 11/04/16 20:00 Completed Stool Culture [MR] Stat Lab 11/04/16 14:32 Received Acetaminophen 325 mg [Tylenol 325 mg] Med 11/04/16 19:06 Active 650 mg PEG Q4H PRN PRN Aspirin 81 gm Chew [Baby Aspirin 81 mg Chew] Med 11/05/16 10:00 Active 81 mg PEG DAILY Bumetanide 1 mg [Bumex 1 mg] Med 11/05/16 10:00 Active 1 mg PEG DAILY Carbidopa/Levodopa 25/100 mg [Sinemet 25/100 MG] Med 11/04/16 22:00 Active 1 tab PEG BID Ceftriaxone 1 GM/50 ML PREMIX* [ROCEPHIN 1 Gm-D5w 50 ml Med 11/05/16 10:00 Active Bag] 1 g in 50 ml IV Q24H10 Ceftriaxone 1 GM/50 ML PREMIX* [ROCEPHIN 1 Gm-D5w 50 ml Med 11/04/16 13:57 Discontinued Bag] 1 g in 50 ml IV STAT Ceftriaxone 1 GM/50 ML PREMIX* [ROCEPHIN 1 Gm-D5w 50 ml Med 11/04/16 14:02 Discontinued Bag] 1 g in 50 ml IV UD Entacapone 200 mg [Comtan 200 MG] Med 11/04/16 22:00 Discontinued 200 mg PEG BID Ferrous Sulfate 325 mg [Feosol 325 mg] Med 11/05/16 10:00 Active 325 mg PEG DAILY Gabapentin 100 mg [Neurontin 100 MG] Med 11/04/16 22:00 Active 100 mg PEG HS Hydromorphone 2Mg Inj [Dilaudid 2 mg Injection] Med 11/04/16 14:45 Active 0.5 mg IV Q4H PRN PRN Insulin Aspart [NovoLOG Insulin] Med 11/04/16 14:45 Active See Dose Instructions SQ UD PRN Insulin Glargine [Lantus Insulin] Med 11/05/16 08:00 Active 17 unit SQ AMINSULIN Insulin Glargine [Lantus Insulin] Med 11/04/16 22:00 Active 5 unit SQ HS Medication Intervention Med 11/05/16 07:30 Active 1 each MC .RN TO CHECK WITH PT Metoprolol Tartrate 25 mg [Lopressor 25MG Tab] Med 11/04/16 22:00 Active 25 mg PEG BID Metronidazole 500 mg [Flagyl 500 MG] Med 11/04/16 22:00 Active 500 mg PEG TID Montelukast Sodium 10 mg [Singulair 10 MG] Med 11/05/16 10:00 Active 10 mg PEG DAILY NaCl 0.9% 1000 ml + KCl 40 Meq [SODIUM CHLORIDE 0.9% W/ Med 11/04/16 14:45 Active 40 mEq KCL 1000ML] 1,000 ml IV 100 mls/hr Nystatin Powder 15 gm [Nystop Powder 15 gm] Med 11/04/16 22:00 Active 1 gm TP BID Ondansetron HCl 4 mg/2 ml [Zofran 4 MG/2 ML VIAL] Med 11/04/16 14:45 Active 4 mg IV Q6H PRN PRN Pantoprazole 40 mg [Protonix 40 mg IV] Med 11/05/16 10:00 Active 40 mg IV Q24H10 Potassium Chloride 20Meq/100Ml [POTASSIUM CHLORIDE 20 Med 11/04/16 21:30 Discontinued mEq IN WATER 100ML] 100 ml IV Q2H Simvastatin 10 mg [Zocor 10MG] Med 11/04/16 22:00 Active 10 mg PEG HS OT Screen per Nursing Assess ONCE OT 11/04/16 16:47 Completed PT Screen per Nursing Assess ONCE PT 11/04/16 16:47 Completed Oxygen NASAL CANNULA 3 lpm RT 11/04/16 16:22 Active RT Screen per Nursing Assess ONCE RT 11/04/16 16:[address] Screen per Nursing Assess once Ther 11/04/16 16:47 Active Transfer Order Routine Transfer 11/04/16 13:52 Completed Patient Care Notes (Last 24 hours) 11/04/16 21:02 Nursing Note by Delilah Kimball Patient blood sugar 67 at this time, pt asymptomatic, Nepro 2.0 given per peg tube at 2020. rechecked blood sugar at 2100 was 83. Lab called with critical potassium of 2.8, stated lab running for cdiff positive for antigen and toxin. called placed to Dr Valladares with orders for Flagyl 500 mg TID per peg tube and K Phillip 40 MEQ IV now. Addendum entered by Delilah Kimball 11/04/16 21:29: also stated to recheck potassium in am, BMP already ordered. Initialized on 11/04/16 21:02 - END OF NOTE - Vitals & Intake/Output Vital Signs: Vital Signs Temperature 98.4 F 11/05/16 08:00 Pulse Rate 85 11/05/16 08:00 Respiratory Rate 16 11/05/16 08:00 Blood Pressure 143/73 11/05/16 08:00 O2 Sat by Pulse Oximetry 100 11/05/16 08:00 Oxygen-Last Documented O2 Percentage 3 Liters = 32% Intake & Output: Intake & Output 11/03/16 11/04/16 11/05/16 11/06/16 11:59 11:59 11:59 11:59 Intake Total 2500 Output Total 675 Balance 1825 Weight 58.5 kg - Lab Result Diagrams: 11/05/16 05:15 Lab Results-Last 24 Hrs: Accuchecks Date 11/05/1611/05/1611/05/16 Date 11/04/16 Time 07:30 Time 04:00 Time 00:24 Time 20:16 Accucheck Value: 169 Accucheck Value: 148 Accucheck Value: 240 Accucheck Value: 67 Accucheck Value: 156 Lab Results-Last 24 Hours 11/04/16 11/04/16 11/05/16 Range/Units 15:00 20:00 05:15 Sodium 146 H (136-145) mEq/L Potassium 2.8 L* 3.6 (3.5-5.1) mEq/L Chloride 112 H (98-107) mEq/L Carbon Dioxide 26.2 (21-32) mEq/L Anion Gap 10.9 (5-15) MEQ/L BUN 18 (9-20) mg/dL Creatinine 0.67 (0.55-1.30) mg/dl Estimated GFR > 60 ML/MIN Glucose 125 H (70-110) MG/DL Calcium 8.5 (8.5-10.1) mg/dL Stl C. diff Tox B Gene POSITIVE (NEGATIVE) C.difficile 027-NAP1-B1 POSITIVE (NEGATIVE) Micro Results-Entire Visit: Accuchecks Date 11/05/1611/05/1611/05/1611/04/16 Time 07:30 Time 04:00 Time 00:24 Time 20:16 Accucheck Value: 169 Accucheck Value: 148 Accucheck Value: 240 Accucheck Value: 67 Accucheck Value: 156 - Procedures and Test Procedures and Tests throughout Hospitalization: Therapy Orders & Screens 11/04/16 16:22 Oxygen NASAL CANNULA 3 lpm Comment: Diagnosis: Critical Hypokalemia 11/04/16 16:47 OT Screen per Nursing Assess ONCE Comment: Protocol Order Physician Instructions: Greater than 3 points order OT Admission Screening Reason For Exam: Triggered on Admission Diagnosis: Critical Hypokalemia Open Wound/Cellutlitis/Pressure Ulcers: Yes Acute Fx/ORIF/Change in wt bearing status: No Severe MUSCULOSKELETAL pain: No ADL Dysfunction: Yes Acute CVA w/Hemiparesis/Hemiplegia: No Decreased Functional Mobility/Strength: Yes Sprain/Strain: No Acute Post-op Mobility Dysfunction: No Total Points: 9 PT Screen per Nursing Assess ONCE Comment: Protocol Order Physician Instructions: Greater than 3 points order PT Admission Screenin Reason For Exam: Triggered on Admission Diagnosis: Critical Hypokalemia Open Wound/Cellutlitis/Pressure Ulcers: Yes Acute Fx/ORIF/Change in wt bearing status: No Severe MUSCULOSKELETAL pain: No ADL Dysfunction: Yes Acute CVA w/Hemiparesis/Hemiplegia: No Decreased Functional Mobility/Strength: Yes Sprain/Strain: No Acute Post-op Mobility Dysfunction: No Total Points: 9 RT Screen per Nursing Assess ONCE Comment: Protocol Order Physician Instructions: Greater than 3 points order RT Admission Screen Reason For Exam: Triggered on Admission Diagnosis: Critical Hypokalemia Diagnosis: Critical Hypokalemia Pneumonia: No Home O2: Yes Asthma: No CHF: Yes Home CPAP/BIPAP: No Home Nebs/MDI: No Total Points: 8 ST Screen per Nursing Assess once Comment: Protocol Order Physician Instructions: Greater than [address] Admission Screening Reason For Exam: Triggered on Admission Diagnosis: Critical Hypokalemia CVA/Dyshpagia/Aphasia: Yes Cognitive Deficits: Yes Dehydration/Nutrition Deficit: No Reflux: No Oral-Motor Difficulties: No Pneumonia: No Residential Resident: Yes Total Points: 13 - Discharge Discharge Date: 11/05/16 Disposition: Home, Self-Care Condition: Stable Prescriptions: Continue Insulin Detemir [Levemir] 17 unit SQ DAILY Insulin Detemir [Levemir] 5 unit SQ HS Montelukast Sodium [Singulair] 10 mg PEG DAILY Insulin Aspart [NovoLOG Insulin] 1 unit SQ UD Simvastatin 10 mg PEG HS Metoprolol Tartrate 25 mg [Lopressor 25MG Tab] 25 mg PEG BID Entacapone 200 mg [Comtan 200 MG] 200 mg PEG BID Carbidopa/Levodopa [Carbidopa-Levo 25-100 Tab] 1 each PEG BID Bumetanide 1 mg [Bumex 1 mg] 1 mg PEG DAILY Aspirin 81 mg G-TUBE DAILY Darbepoetin [place] in Polysorbat [Aranesp] 60 mcg IJ UD Gabapentin [Neurontin] 100 mg PO HS Ferrous Sulfate 325 mg PO DAILY Acetaminophen 325 mg [Tylenol 325 mg] 650 mg PO Q4HPRN PRN PRN Reason: Pain And/Or Fever Nystatin Powder 15 gm [Nystop Powder 15 gm] 1 applic TP BID Changed Metronidazole [Flagyl] 500 mg PEG TID #30 tablet Additional Instructions: CARE HOME ORDERS . Flagly 500mg TID x10 days resume previous orders Follow up with: CUAUHTEMOC DE LA GARZA [Primary Care Provider] - Forms: Transfer Record Inter-Agency, Transfer Record Residential
[2016-11-05 13:30] VITALS: BP 150/67; PULSE 89
== END 2016-11-05 14:00 ==
LOC: ED 10:23 → INTOOBSV 14:44 → ICU 14:44
PROVIDERS: ADMIT General Practice; ATTEND General Practice
DX: A04.7 Enterocolitis due to Clostridium difficile (principal); E87.6 Hypokalemia; I10 Essential (primary) hypertension; I50.9 Heart failure, unspecified; E11.9 Type 2 diabetes mellitus without complications; Z79.4 Long term (current) use of insulin; M19.90 Unspecified osteoarthritis, unspecified site; F41.9 Anxiety disorder, unspecified; Z79.899 Other long term (current) drug therapy
CPT/HCPCS: 36000; 36415; 51702; 80048; 81000; 84132; 87045; 87046; 87077; 87086; 87186; 87335; 87493; 93005; 93041; 93268; 96360; 96361; 96365; 96366; 96374; 99284; 99285; G0378; J0696; J3480; A9270-GY

== ENCOUNTER 2017-06-30 08:38 | Inpatient (IN) | payer MEDICARE, OTHER ==
[2017-06-30] MEDS ORDERED: Sodium Chloride 0.9% 1000 ML 1,000 ML (08:57)
[2017-06-30] MEDS: Sodium Chloride 0.9% 1000 ML 1,000 ML IV ×2 (08:59→12:39)
[2017-06-30 09:05] LABS: Lactic Acid 2.3 (0.4-2.0)
[2017-06-30 09:06] LABS: VBG BASE EXCESS 6.5 (-2.0-2.0); VBG CARBOXYHEMOGLOBIN 3.1 % T HGB (0.0-6.9); VBG HCO3- 31.9 meq/L (22-28); VBG HEMOGLOBIN 11.7; VBG O2 SATURATION 71.3 (95-100); VBG PCO2 48 mm/Hg (42-55); VBG PO2 32 mm/Hg (25-40); VBG POTASSIUM 3.9 (3.5-5.1); VBG pH 7.43 (7.32-7.42)
[2017-06-30 09:19] LABS: BASOPHIL % 0.3 % (0.0-0.4); Basophil (Absolute #) 0.03 (0-0.4); Eosinophil % 0.1 % (0.00-5.0); Eosinophil (Absolute #) 0.01 (0-0.5); Hematocrit 37.9 % (35-47); Hemoglobin 11.1 gm/dl (12.0-16.0); Lymphocyte (Absolute #) 1.05 (1.0-4.6); Mean Cell Volume 101.1 fl (78-100); Mean Corpuscular Hemoglobin 29.6 pg (26-32); Mean Corpuscular Hgb Concent. 29.3 g/dl (32-36); Mean Platelet Volume 13.8 fl (6-9.5); Monocyte (Absolute #) 1.01 (0.0-1.3); Monocytes % 8.6 % (0.0-12.0); Platelet Count 195 K/mm3 (150-450); Red Blood Count 3.75 M/mm3 (4.1-5.4); Red Cell Distribution Width 13.7 % (11.5-14.0); White Blood Count 11.7 K/mm3 (4.0-10.5)
[2017-06-30 09:28] LABS: ADD MANUAL DIFF? NO (NO)
[2017-06-30 09:34] LABS: MAGNESIUM 3.6 mg/dL (1.8-2.4)
[2017-06-30 09:41] LABS: ALBUMIN 2.8 g/dL (3.4-5.0); ALKALINE PHOSPHATASE 148 U/L (46-116); ANION GAP 11.7 MEQ/L (5-15); BLOOD UREA NITROGEN 71 mg/dL (9-20); CHLORIDE 117 mEq/L (98-107); Calcium 8.9 mg/dL (8.5-10.1); EST GLOMERULAR FILTRATION RATE 47 ML/MIN; Glucose 289 MG/DL (70-110); Potassium 3.8 mEq/L (3.5-5.1); SGOT/AST 15 U/L (15-37); SGPT/ALT 17 U/L (12-78); Total Protein 7.3 gm/dL (6.4-8.2)
[2017-06-30 09:43] LABS: SODIUM 151 mEq/L (136-145)
[2017-06-30 09:54] LABS: ADD URINE CULTURE? YES (NO); Appearance CLOUDY (CLEAR); Bilirubin NEGATIVE (NEGATIVE); Blood 250 Ery/ul (0-5); COMPLETE URINE MICROSCOPIC? YES; Collection Type INDWELLING CATH; Glucose NEGATIVE (NEGATIVE); Ketones NEGATIVE (NEGATIVE); Leukocyte Esterase 2+ (NEGATIVE); Nitrite NEGATIVE (NEGATIVE); Protein,Urine Dip TRACE (Negative); Specific Gravity 1.015 (1.005-1.025); Urobilinogen NORMAL mg/dL (0-1)
[2017-06-30 10:20] LABS: Bacteria MODERATE /HPF (NEGATIVE); Epithelial Cells MODERATE /HPF (FEW); Mucus SLIGHT /HPF (NEGATIVE)
[2017-06-30] MEDS ORDERED: Zosyn 3.375GM/100 Ml D5W 3.375 GM/100 ML IVPB IV (10:36)
[2017-06-30] MEDS: Zosyn 3.375GM/100 Ml D5W 3.375 GM/100 ML IVPB IV ×3 (10:37→23:37)
[2017-06-30] MEDS ORDERED: NovoLOG Insulin SQ (12:30)
[2017-06-30 12:32] LABS: HEMOGLOBIN A1C 7.5 (4.5-6.2)
[2017-06-30] MEDS ORDERED: MEDICATION INTERVENTION MC (12:36)
[2017-06-30 14:08] LABS: Lactic Acid 0.8 (0.4-2.0)
[2017-06-30] MEDS: FEOSOL 325 MG PO ×2 (14:40→21:17)
[2017-06-30] MEDS ORDERED: NON-FORMULARY ITEM (Ferrous Sulfate [Ferrous Sulfate] 325 MG) PO (15:00)
[2017-06-30] MEDS: GlucaGen 1 MG IM ×2 (16:35→23:51)
[2017-06-30 19:03] LABS: ANION GAP 12.3 MEQ/L (5-15); BLOOD UREA NITROGEN 69 mg/dL (9-20); CHLORIDE 123 mEq/L (98-107); Calcium 8.7 mg/dL (8.5-10.1); Carbon Dioxide 25.1 mEq/L (21-32); Creatinine 1 1.05 mg/dl (0.55-1.30); EST GLOMERULAR FILTRATION RATE 55 ML/MIN; Potassium 4.5 mEq/L (3.5-5.1)
[2017-06-30 19:13] LABS: Glucose 48 MG/DL (70-110); SODIUM 156 mEq/L (136-145)
[2017-06-30] MEDS: Lopressor 25MG Tab PEG (21:18)
[2017-06-30] MEDS: Sinemet 25/100 MG PEG (21:18)
[2017-06-30] MEDS: Neurontin 100 MG PO (21:18)
[2017-06-30] MEDS: Zocor 10MG PEG (21:25)
[2017-06-30] MEDS: Lantus Insulin SQ (21:25)
[2017-06-30] MEDS ORDERED: ENTACAPONE 200 MG PEG (22:00)
[2017-06-30] MEDS ORDERED: NON-FORMULARY ITEM (Insulin Detemir [Levemir] 10 UNIT) SQ (22:00)
[2017-06-30] MEDS ORDERED: INSULIN DETEMIR 15 UNIT SQ (22:00)
[2017-07-01] MEDS: Zosyn 3.375GM/100 Ml D5W 3.375 GM/100 ML IVPB IV ×4 (05:38→23:18)
[2017-07-01 05:40] LABS: Hematocrit 34.3 % (35-47); Hemoglobin 9.9 gm/dl (12.0-16.0); Mean Cell Volume 103.3 fl (78-100); Mean Corpuscular Hemoglobin 29.8 pg (26-32); Mean Corpuscular Hgb Concent. 28.9 g/dl (32-36); Mean Platelet Volume 12.7 fl (6-9.5); Platelet Count 146 K/mm3 (150-450); Red Blood Count 3.32 M/mm3 (4.1-5.4); Red Cell Distribution Width 13.4 % (11.5-14.0); White Blood Count 15.2 K/mm3 (4.0-10.5)
[2017-07-01 06:00] LABS: ANION GAP 10.6 MEQ/L (5-15); BLOOD UREA NITROGEN 55 mg/dL (9-20); CHLORIDE 124 mEq/L (98-107); Calcium 8.6 mg/dL (8.5-10.1); Carbon Dioxide 28.9 mEq/L (21-32); Creatinine 1 0.94 mg/dl (0.55-1.30); EST GLOMERULAR FILTRATION RATE > 60 ML/MIN; Glucose 120 MG/DL (70-110); Potassium 4.2 mEq/L (3.5-5.1)
[2017-07-01 06:08] LABS: SODIUM 159 mEq/L (136-145)
[2017-07-01] MEDS ORDERED: NON-FORMULARY ITEM (Aspirin [Aspirin] 81 MG) G-TUBE (10:00)
[2017-07-01] MEDS: Singulair 10 MG PEG (11:26)
[2017-07-01] MEDS: BUMEX 1 MG PEG (11:26)
[2017-07-01] MEDS: FEOSOL 325 MG PO ×3 (11:26→22:08)
[2017-07-01] MEDS: Sinemet 25/100 MG PEG ×2 (11:26→22:09)
[2017-07-01] MEDS: Lopressor 25MG Tab PEG ×2 (11:26→22:08)
[2017-07-01] MEDS: Dextrose 5% -0.45 NaCl 1000 ML 1,000 ML IV (11:26)
[2017-07-01] MEDS: BABY ASPIRIN 81 MG CHEW G-TUBE (11:27)
[2017-07-01] MEDS: Lantus Insulin SQ ×2 (11:28→22:09)
[2017-07-01] MEDS ORDERED: D50W 50 ml Abboject IV (17:16)
[2017-07-01] MEDS ORDERED: Glutose 15 GM ORAL GEL PO (17:16)
[2017-07-01] MEDS: NovoLOG Insulin SQ ×2 (17:32→22:09)
[2017-07-01] MEDS: Zocor 10MG PEG (22:09)
[2017-07-01] MEDS: Neurontin 100 MG PO (22:09)
[2017-07-01] MEDS: TYLENOL 325 MG PO (23:17)
[2017-07-02] MEDS: Zosyn 3.375GM/100 Ml D5W 3.375 GM/100 ML IVPB IV ×3 (05:24→18:54)
[2017-07-02] MEDS: FEOSOL 325 MG PO ×3 (09:40→21:55)
[2017-07-02] MEDS: Singulair 10 MG PEG (09:40)
[2017-07-02] MEDS: Sinemet 25/100 MG PEG ×2 (09:40→21:55)
[2017-07-02] MEDS: BUMEX 1 MG PEG (09:40)
[2017-07-02] MEDS: BABY ASPIRIN 81 MG CHEW G-TUBE (09:42)
[2017-07-02] MEDS: NovoLOG Insulin SQ ×3 (09:43→22:08)
[2017-07-02] MEDS: Lantus Insulin SQ ×2 (09:43→22:07)
[2017-07-02 09:46] LABS: Hematocrit 34.4 % (35-47); Mean Cell Volume 103.3 fl (78-100); Mean Corpuscular Hgb Concent. 29.1 g/dl (32-36); Mean Platelet Volume 13.5 fl (6-9.5); Platelet Count 146 K/mm3 (150-450); Red Blood Count 3.33 M/mm3 (4.1-5.4); Red Cell Distribution Width 13.4 % (11.5-14.0); White Blood Count 8.5 K/mm3 (4.0-10.5)
[2017-07-02] MEDS: Lopressor 25MG Tab PEG ×2 (09:56→21:55)
[2017-07-02] MEDS: Dextrose 5% -0.45 NaCl 1000 ML 1,000 ML IV (10:03)
[2017-07-02 10:04] LABS: ALBUMIN 2.3 g/dL (3.4-5.0); ALKALINE PHOSPHATASE 112 U/L (46-116); ANION GAP 12.5 MEQ/L (5-15); BLOOD UREA NITROGEN 36 mg/dL (9-20); CHLORIDE 121 mEq/L (98-107); Calcium 8.3 mg/dL (8.5-10.1); Carbon Dioxide 25.8 mEq/L (21-32); Creatinine 1 1.05 mg/dl (0.55-1.30); EST GLOMERULAR FILTRATION RATE 55 ML/MIN; Potassium 3.9 mEq/L (3.5-5.1); SGOT/AST 14 U/L (15-37); SGPT/ALT 10 U/L (12-78); Total Protein 6.3 gm/dL (6.4-8.2)
[2017-07-02 10:11] LABS: Glucose 342 MG/DL (70-110); SODIUM 156 mEq/L (136-145)
[2017-07-02 11:18] LABS: Appearance SLIGHTLY HAZY (CLEAR); Bilirubin NEGATIVE (NEGATIVE); Blood 50 Ery/ul (0-5); COMPLETE URINE MICROSCOPIC? YES; Collection Type CCMS; Glucose 500 mg/dL (NEGATIVE); Ketones TRACE (NEGATIVE); Leukocyte Esterase 2+ (NEGATIVE); Nitrite NEGATIVE (NEGATIVE); Protein,Urine Dip NEGATIVE (Negative); Specific Gravity 1.015 (1.005-1.025); Urobilinogen NORMAL mg/dL (0-1)
[2017-07-02 11:19] LABS: Bacteria FEW /HPF (NEGATIVE); Epithelial Cells FEW /HPF (FEW); WBC 50-100 /HPF (0-5); Yeast MANY /HPF (NEGATIVE)
[2017-07-02] MEDS: Sodium Chloride 0.9% 1000 ML 1,000 ML IV (13:34)
[2017-07-02] MEDS: NORCO 7.5/325 MG TAB PO (15:20)
[2017-07-02] MEDS: TYLENOL 325 MG PO (21:54)
[2017-07-02] MEDS: Neurontin 100 MG PO (21:55)
[2017-07-02] MEDS: Zocor 10MG PEG (21:55)
[2017-07-03] MEDS: Sodium Chloride 0.9% 1000 ML 1,000 ML IV (00:09)
[2017-07-03] MEDS: Zosyn 3.375GM/100 Ml D5W 3.375 GM/100 ML IVPB IV ×3 (00:11→11:35)
[2017-07-03] MEDS: TYLENOL 325 MG PO (04:34)
[2017-07-03] MEDS: NovoLOG Insulin SQ ×2 (04:36→13:07)
[2017-07-03 06:25] LABS: ALBUMIN 2.2 g/dL (3.4-5.0); ALKALINE PHOSPHATASE 102 U/L (46-116); ANION GAP 9.4 MEQ/L (5-15); BLOOD UREA NITROGEN 34 mg/dL (9-20); CHLORIDE 122 mEq/L (98-107); Calcium 8.1 mg/dL (8.5-10.1); Carbon Dioxide 27.1 mEq/L (21-32); Creatinine 1 1.02 mg/dl (0.55-1.30); EST GLOMERULAR FILTRATION RATE 56 ML/MIN; Glucose 251 MG/DL (70-110); Potassium 3.7 mEq/L (3.5-5.1); SGOT/AST 12 U/L (15-37); SGPT/ALT 7 U/L (12-78)
[2017-07-03 06:32] LABS: SODIUM 156 mEq/L (136-145)
[2017-07-03] MEDS: BABY ASPIRIN 81 MG CHEW G-TUBE (10:58)
[2017-07-03] MEDS: NORCO 7.5/325 MG TAB PO (10:58)
[2017-07-03] MEDS: BUMEX 1 MG PEG (11:01)
[2017-07-03] MEDS: Lopressor 25MG Tab PEG (11:01)
[2017-07-03] MEDS: FEOSOL 325 MG PO ×2 (11:01→15:11)
[2017-07-03] MEDS: Singulair 10 MG PEG (11:02)
[2017-07-03] MEDS: Sinemet 25/100 MG PEG (11:02)
[2017-07-03] MEDS: Lantus Insulin SQ (11:04)
== END 2017-07-03 15:30 ==
LOC: ED 08:38 → MED SURG 11:20
PROVIDERS: General Practice
CPT/HCPCS: 36415; 71045; 80048; 80053; 81000; 82805; 82962; 83036; 83605; 83735; 84134; 85025; 85027; 87040; 87086; 93005; 94760; 96360; 96361; 96365; 99285; G0378; J1610; J2543; P9612

== ENCOUNTER 2017-10-02 07:30 | Inpatient (IN) | payer MEDICARE, OTHER ==
[2017-10-02 16:31] LABS: Hematocrit 31.1 % (35-47); Hemoglobin 9.1 gm/dl (12.0-16.0); Mean Cell Volume 96.6 fl (78-100); Mean Corpuscular Hgb Concent. 29.3 g/dl (32-36); Mean Platelet Volume 12.3 fl (6-9.5); Platelet Count 304 K/mm3 (150-450); Red Blood Count 3.22 M/mm3 (4.1-5.4); Red Cell Distribution Width 14.4 % (11.5-14.0); White Blood Count 11.8 K/mm3 (4.0-10.5)
[2017-10-02 16:33] LABS: Mean Corpuscular Hemoglobin 28.2 pg (26-32)
[2017-10-02 16:49] LABS: ALBUMIN 2.9 g/dL (3.5-5.0); ALKALINE PHOSPHATASE 125 U/L (38-126); ANION GAP 11.3 MEQ/L (5-15); BILIRUBIN,TOTAL < 0.10 mg/dL (0.2-1.3); BLOOD UREA NITROGEN 38 mg/dL (7-17); CHLORIDE 115 mmol/L (98-107); Calcium 8.7 mg/dL (8.4-10.2); Carbon Dioxide 28 mmol/L (22-30); Creatinine 1 0.59 mg/dL (0.52-1.04); Glucose 137 mg/dL (74-106); LIPASE 32 U/L (23-300); Potassium 4.4 mmol/L (3.5-5.1); SGOT/AST 21 U/L (14-36); SGPT/ALT 10 U/L (0-35); Total Protein 6.3 g/dL (6.3-8.2)
[2017-10-02] MEDS ORDERED: GlucaGen 1 MG IM PRN (16:53)
[2017-10-02] MEDS ORDERED: NORCO 7.5/325 MG TAB PO PRN (16:53)
[2017-10-02] MEDS ORDERED: TYLENOL 325 MG PEG PRN (16:53)
--- NOTE | 2017-10-02 16:57 | XRAY ---
Indication: Vomiting. The hydration. C. difficile. Comparison: June 30, 2017. Portable chest demonstrates new small right midlung infiltrate/atelectasis. Remaining heart and lungs unremarkable. Bony thorax intact again with osteopenia, degenerative changes, and old right 3rd rib fracture.
[2017-10-02 17:11] LABS: SODIUM 150 mmol/L (137-145)
[2017-10-02] MEDS ORDERED: MEDICATION INTERVENTION MC SCH (17:15)
[2017-10-02] MEDS: FLAGYL 500 MG IVPB 500 MG/100 ML BAG IV SCH ×2 (17:56→22:39)
[2017-10-02] MEDS: Sodium Chloride 0.9% 1000 ML 1,000 ML IV SCH (17:57)
[2017-10-02 18:06] LABS: Appearance CLOUDY (CLEAR); Bacteria PACKED /HPF (NEGATIVE); Bilirubin NEGATIVE (NEGATIVE); Blood 250 Ery/ul (0-5); Epithelial Cells MODERATE /HPF (FEW); Glucose NEGATIVE (NEGATIVE); Ketones NEGATIVE (NEGATIVE); Leukocyte Esterase 2+ (NEGATIVE); Mucus MODERATE /HPF (NEGATIVE); Nitrite POSITIVE (NEGATIVE); Protein,Urine Dip 30 (Negative); RBC 15-25 /HPF (0-2); Specific Gravity 1.005 (1.005-1.025); Urobilinogen NORMAL mg/dL (0-1); WBC 50-100 /HPF (0-5)
[2017-10-02] MEDS ORDERED: Glutose 15 GM ORAL GEL PO ONE (18:39)
[2017-10-02] MEDS: Zocor 10MG PEG SCH (22:00)
[2017-10-02] MEDS ORDERED: ENTACAPONE 200 MG PEG SCH (22:00)
[2017-10-02] MEDS: Sinemet 25/100 MG PEG SCH (22:00)
[2017-10-02] MEDS: Lopressor 25MG Tab PEG SCH (22:00)
[2017-10-02] MEDS: Ferrous Sulfate (IRON) 220 MG/5 ML PEG SCH (22:00)
[2017-10-02] MEDS ORDERED: NON-FORMULARY ITEM (Ferrous Sulfate [Ferrous Sulfate] 325 MG) PO SCH (22:00)
[2017-10-02] MEDS: Neurontin 100 MG PEG SCH (22:00)
[2017-10-03] MEDS ORDERED: D50W 50 ml Abboject IV ONE ×2 (07:13→07:17)
[2017-10-03] MEDS: Sodium Chloride 0.9% 1000 ML 1,000 ML IV SCH ×2 (07:20→16:05)
[2017-10-03] MEDS ORDERED: Glutose 15 GM ORAL GEL PO PRN (07:35)
--- NOTE | 2017-10-03 08:40 | XRAY ---
Indication: Vomiting, nausea, dehydration. C. difficile. Multiple contiguous axial images obtained through the abdomen and pelvis without contrast as ordered. Comparison: None. Study is slightly degraded by respiration artifact. Lung bases demonstrates minimal bibasilar fibrosis/scarring. No infiltrate or effusion. Heart is not enlarged. Small hiatal hernia. PEG tube in situ with balloon tip in the gastric lumen. Noncontrasted stomach and bowel loops appear nonobstructed. Normal appendix. Mild scattered colonic fecal debris throughout. Distal sigmoid colon/rectum demonstrates moderate circumferential wall thickening with stranding favoring colitis/proctitis. No free fluid/air. 6 mm gallstone, tiny calcified uterine fibroids, and Drummond catheter in situ. Remaining liver, gallbladder, pancreas, spleen, adrenal glands, kidneys, ureters, and bladder appear unremarkable for noncontrast exam. Mild aortoiliac calcifications without AAA. Osseous structures intact with mild osteopenia, multilevel degenerative spondylosis, and old right proximal femur fracture with partially visualized orthopedic hardware. Impression: 1. Distal sigmoid colitis/proctitis. 2. Mild fecal stasis without obstruction. 3. Tiny gallstone better evaluated with ultrasound if clinically warranted. 4. Small hiatal hernia and tiny calcified uterine fibroids. 5. PEG tube and Drummond catheter in situ. Comment: Preliminary interpretation was made by [facility]. No critical discrepancy. CT DI 19.89
[2017-10-03] MEDS ORDERED: NON-FORMULARY ITEM (Aspirin [Aspirin] 81 MG) G-TUBE SCH (10:00)
--- NOTE | 2017-10-03 10:17 | PCM.HP ---
History of Present Illness - Chief Complaint Chief Complaint: dehydration,vomiting,c-diff History of Present Illness: is a 72 year old female admitted directly from prison by Dr Stephanie Madison for vomiting, dirrhea for 3 days, Patient has been recently diagnosed with C. Diff colitis . - Review of Systems Constitutional: Fatigue, No Fever, No Chills Eyes: No Symptoms Ears, Nose, & Throat: No Symptoms Respiratory: No Cough, No Short Of Breath Cardiac: No Chest Pain, No Edema, No Syncope Abdominal/Gastrointestinal: Abdominal Pain, Nausea, Vomiting, Diarrhea Genitourinary Symptoms: No Dysuria Musculoskeletal: No Back Pain, No Neck Pain Skin: No Rash Neurological: No Dizziness, No Focal Weakness, No Sensory Changes Psychological: No Symptoms Endocrine: No Symptoms Hematologic/Lymphatic: No Symptoms Immunological/Allergic: No Symptoms Medications & Allergies Home Medications: Home Medication List Aspirin 81 mg G-TUBE DAILY 09/23/16 [History Confirmed 10/02/17] Bumetanide 1 mg [Bumex 1 mg] 1 mg PEG DAILY 09/23/16 [History Confirmed ] Carbidopa/Levodopa [Carbidopa-Levo 25-100 Tab] 1 each PEG BID 09/23/16 [History Confirmed 10/02/17] Entacapone 200 mg [Comtan 200 MG] 200 mg PEG BID 09/23/16 [History Confirmed 10/02/17] Insulin Aspart [NovoLOG Insulin] 1 unit SQ UD 09/23/16 [History Confirmed ] Insulin Detemir [Levemir] 15 unit SQ DAILY 09/23/16 [History Confirmed 10/02/17] Metoprolol Tartrate 25 mg [Lopressor 25MG Tab] 25 mg PEG BID 09/23/16 [ History Confirmed 10/02/17] Montelukast Sodium [Singulair] 10 mg PEG DAILY 09/23/16 [History Confirmed 10/02] Simvastatin 10 mg PEG HS 09/23/16 [History Confirmed 10/02/17] Acetaminophen 325 mg [Tylenol 325 mg] 650 mg PO Q4HPRN PRN 11/04/16 [ History Confirmed 10/02/17] Gabapentin [Neurontin] 100 mg PO HS 11/04/16 [History Confirmed 10/02/17] Glucagon 1 mg [GlucaGen 1 MG] 1 mg IM Q2H/PRN PRN 03/24/17 [History Confirmed 10/02/17] Hydrocodone/Acetaminophen [[place] 7.5-325 Tablet] 1 each PO Q4HPRN PRN 03/24/17 [ History Confirmed 10/02/17] Ferrous Sulfate 325 mg PO TID 06/30/17 [History Confirmed 10/02/17] Insulin Detemir [Levemir] 10 unit SQ HS 06/30/17 [History Confirmed 10/02/17] Cholestyramine Light 4 gm [QUESTRAN Light 4 GM Packet] 4 gm PEG DAILY [History Confirmed 10/02/17] Allergies/Adverse Reactions: Allergies Allergy/AdvReac Type Severity Reaction Status Date / Time ranitidine Allergy Verified 06/30/17 09:21 - Past Medical History Past Medical History: Yes Neurological History: Other ENT History: Cataracts, Other Cardiac History: Arrhythmia, High Cholesterol, Hypertension Respiratory History: CHF, COPD Endocrine Medical History: Diabetes Type II Musculoskelatal History: Fractures, Osteoarthritis, Other GI Medical History: No Pertinent History History: Other Pyscho-Social History: Anxiety Reproductive Disorders: No Pertinent History Comment: dysphagia; neuromuscular bladder dysfunction; pressure ulcer/cocyx. tremors - Female History Are you now?: No - Past Surgical History Past Surgical History: Yes Neuro Surgical History: No Pertinent History Cardiac History: No Pertinent History, Vascular Surgery Respiratory Surgery: No Pertinent History GI Surgical History: Other Genitourinary Surgical Hx: No Pertinent History Musculskeletal Surgical Hx: Orthopedic Surgery Female Surgical History: No Pertinent History Other Surgical History: cataract surgery on left eye; right hip surgery; left leg vein surgery; PEG tube placement, R knee surgery - Social History Smoking Status: Never smoker Exposure to second hand smoke: No Alcohol: None Drug Use: none - Physical Exam Vital Signs: Vital Signs - 24 hr Temp Pulse Resp BP BP Pulse Ox 10/03/17 07:21 97.6 F 89 18 137/60 93 L 10/03/17 04:00 97.9 F 92 H 19 135/81 100 10/03/17 00:00 97.9 F 103 H 20 144/64 94 L 10/02/17 20:00 97.6 F 98 H 17 137/63 96 10/02/17 16:04 99.2 F 96 H 18 131/59 98 10/02/17 15:59 99.2 F 96 H 18 131/59 98 10/02/17 15:56 99.2 F 62 18 131/59 General Appearance: moderate distress, alert Neurologic Exam: alert, oriented x 3, cooperative, normal mood/affect, nml cerebellar function, nml station & gait, sensation nml, No motor deficits Eye Exam: PERRL/EOMI, eyes nml inspection Ears, Nose, Throat Exam: normal ENT inspection, TMs normal, pharynx normal, moist mucous membranes Neck Exam: normal inspection, non-tender, supple, full range of motion Respiratory Exam: normal breath sounds, rhonchi, wheezing, No respiratory distress Cardiovascular Exam: regular rate/rhythm, normal heart sounds, normal peripheral pulses Gastrointestinal/Abdomen Exam: soft, normal bowel sounds, No tenderness, No mass Back Exam: normal inspection, normal range of motion, No CVA tenderness, No vertebral tenderness Extremity Exam: normal inspection, normal range of motion, pelvis stable Skin Exam: normal color, warm, dry, No rash Lymphatic Exam: No adenopathy Results - Labs Lab/Micro Results: Accuchecks Date 10/03/17 Date 10/02/17 Date 10/02/17 Time 20:00 Time 16:30 Accucheck Value: 59 Accucheck Value: 178 Accucheck Value: 66 Lab Results-Last 24 Hours 10/02/17 10/02/17 10/02/17 Range/Units 16:20 16:20 17:36 WBC 11.8 H (4.0-10.5) K/mm3 RBC 3.22 L (4.1-5.4) M/mm3 Hgb 9.1 L (12.0-16.0) gm/dl Hct 31.1 L (35-47) % MCV 96.6 (78-100) fl MCH 28.2 (26-32) pg MCHC 29.3 L (32-36) g/dl RDW 14.4 H (11.5-14.0) % Plt Count 304 (150-450) K/mm3 MPV 12.3 H (6-9.5) fl Sodium 150 H (137-145) mmol/L Potassium 4.4 (3.5-5.1) mmol/L Chloride 115 H (98-107) mmol/L Carbon Dioxide 28 (22-30) mmol/L Anion Gap 11.3 (5-15) MEQ/L BUN 38 H (7-17) mg/dL Creatinine 0.59 (0.52-1.04) mg/dL Estimated GFR > 60.0 ML/MIN Glucose 137 H (74-106) mg/dL Calcium 8.7 (8.4-10.2) mg/dL Magnesium 3.2 H (1.6-2.3) mg/dL Total Bilirubin < 0.10 L (0.2-1.3) mg/dL AST 21 (14-36) U/L ALT 10 (0-35) U/L Alkaline Phosphatase 125 (38-126) U/L Serum Total Protein 6.3 (6.3-8.2) g/dL Albumin 2.9 L (3.5-5.0) g/dL Lipase 32 (23-300) U/L Ur Collection Type CATH Urine Color YELLOW (YELLOW) Urine Appearance CLOUDY (CLEAR) Urine pH 8.0 (5-6) Ur Specific [place] 1.005 (1.005-1.025) Urine Protein 30 (Negative) Urine Ketones NEGATIVE (NEGATIVE) Urine Blood 250 (0-5) Hans[place]/ul Urine Nitrite POSITIVE (NEGATIVE) Urine Bilirubin NEGATIVE (NEGATIVE) Urine Urobilinogen NORMAL (0-1) mg/dL Ur Leukocyte Esterase 2+ (NEGATIVE) Urine Microscopic RBC 15-25 (0-2) /HPF Urine Microscopic WBC 50-100 (0-5) /HPF Ur Epithelial Cells MODERATE (FEW) /HPF Urine Bacteria PACKED (NEGATIVE) /HPF Urine Mucus MODERATE (NEGATIVE) /HPF Urine Glucose NEGATIVE (NEGATIVE) mg/dL Specimen Received 10/02/17 1730 Microbiology 10/02/17 17:38 Urine Culture - Preliminary Urine, Indwelling Catheter GRAM NEGATIVE ID AND SENSITIVITY PENDING Accuchecks Date 10/03/17 Date 10/02/17 Date 10/02/17 Time 20:00 Time 16:30 Accucheck Value: 59 Accucheck Value: 178 Accucheck Value: 66 - Radiology Impressions Radiology Exams & Impressions: Radiology Procedures Category Date Time Status ABDOMEN AND PELVIS W/0 CONTRAS [CT] Routine Exams 10/02/17 16:20 Completed CHEST 1 VIEW (PORTABLE) Routine Exams 10/02/17 16:20 Completed Assessment/Plan (1) C. difficile diarrhea Current Visit: Yes Status: Acute Onset Date: ~10/02/17 Code(s): A04.7 - ENTEROCOLITIS DUE TO CLOSTRIDIUM DIFFICILE * DO NOT USE * (2) Dehydration Current Visit: Yes Status: Acute Onset Date: ~10/02/17 Code(s): E86.0 - DEHYDRATION (3) Vomiting Current Visit: Yes Status: Acute Onset Date: ~10/02/17 Code(s): R11.10 - VOMITING, UNSPECIFIED (4) Type 2 diabetes mellitus Current Visit: Yes Status: Chronic Qualifiers: Diabetes mellitus group home insulin use: with group home use Diabetes mellitus complication status: with hyperosmolarity
[2017-10-03] MEDS: QUESTRAN Light 4 GM Packet PEG SCH (10:29)
[2017-10-03] MEDS: Sinemet 25/100 MG PEG SCH ×2 (10:30→21:49)
[2017-10-03] MEDS: BABY ASPIRIN 81 MG CHEW PEG SCH (10:30)
[2017-10-03] MEDS: Singulair 10 MG PEG SCH (10:30)
[2017-10-03] MEDS: Lopressor 25MG Tab PEG SCH ×2 (10:30→21:49)
[2017-10-03] MEDS: BUMEX 1 MG PEG SCH (10:30)
[2017-10-03] MEDS: FLAGYL 500 MG IVPB 500 MG/100 ML BAG IV SCH ×3 (10:31→21:49)
[2017-10-03] MEDS: Ferrous Sulfate (IRON) 220 MG/5 ML PEG SCH ×3 (10:31→21:50)
[2017-10-03] MEDS: NovoLOG Insulin SQ PRN ×2 (16:53→20:36)
[2017-10-03] MEDS: ROCEPHIN 1 Gm-D5w 50 ml Bag** 1 G/50 ML IVPB IV SCH (20:43)
[2017-10-03] MEDS: Neurontin 100 MG PEG SCH (21:49)
[2017-10-03] MEDS: Zocor 10MG PEG SCH (21:50)
[2017-10-04] MEDS: Sodium Chloride 0.9% 1000 ML 1,000 ML IV SCH ×2 (04:53→17:07)
[2017-10-04] MEDS: QUESTRAN Light 4 GM Packet PEG SCH (08:09)
[2017-10-04] MEDS: Sinemet 25/100 MG PEG SCH ×2 (08:09→22:27)
[2017-10-04] MEDS: Ferrous Sulfate (IRON) 220 MG/5 ML PEG SCH (08:09)
[2017-10-04] MEDS: BUMEX 1 MG PEG SCH (08:09)
[2017-10-04] MEDS: Lopressor 25MG Tab PEG SCH ×2 (08:09→22:27)
[2017-10-04] MEDS: FLAGYL 500 MG IVPB 500 MG/100 ML BAG IV SCH ×3 (08:09→22:26)
[2017-10-04] MEDS: BABY ASPIRIN 81 MG CHEW PEG SCH (08:10)
[2017-10-04] MEDS: Singulair 10 MG PEG SCH (08:12)
[2017-10-04] MEDS: NovoLOG Insulin SQ PRN ×3 (08:30→17:08)
[2017-10-04] MEDS: ROCEPHIN 1 Gm-D5w 50 ml Bag** 1 G/50 ML IVPB IV SCH (09:38)
[2017-10-04] MEDS ORDERED: PROTONIX 40 MG IV IV SCH (13:45)
--- NOTE | 2017-10-04 20:18 | PCM.NOTE ---
Date and Time: 10/04/172015 Subjective Assessment: patient is more alert. blood culture growing Gm positive cocci - Review of Systems Constitutional: No Fever, No Chills Eyes: No Symptoms Ears, Nose, & Throat: No Symptoms Respiratory: No Cough, No Short Of Breath Cardiac: No Chest Pain, No Edema, No Syncope Abdominal/Gastrointestinal: No Abdominal Pain, No Nausea, No Vomiting, No Diarrhea Genitourinary Symptoms: No Dysuria Musculoskeletal: No Back Pain, No Neck Pain Skin: No Rash Neurological: No Dizziness, No Focal Weakness, No Sensory Changes Psychological: No Symptoms Endocrine: No Symptoms Hematologic/Lymphatic: No Symptoms Immunological/Allergic: No Symptoms Objective Exam General Appearance: mild distress, alert Neurologic Exam: alert, oriented x 3, cooperative, normal mood/affect, nml cerebellar function, sensation nml, No motor deficits Skin Exam: normal color, warm, dry Eye Exam: PERRL, EOMI, eyes nml inspection Ears, Nose, Throat Exam: normal ENT inspection, pharynx normal, moist mucous membranes Neck Exam: normal inspection, non-tender, supple, full range of motion Respiratory Exam: normal breath sounds, lungs clear, No respiratory distress Cardiovascular Exam: regular rate/rhythm, normal heart sounds Gastrointestinal/Abdomen Exam: soft, No tenderness, No mass Extremity Exam: normal inspection, normal range of motion Back Exam: normal inspection, normal range of motion, No CVA tenderness, No vertebral tenderness Pelvic Exam: deferred Rectal Exam: deferred OBJECTIVE DATA Vital Signs: Vital Signs - 24 hr Temp Pulse Resp BP Pulse Ox 10/04/17 16:00 99.1 F 91 H 18 125/55 97 10/04/17 11:52 98.6 F 100 H 16 140/62 93 L 10/04/17 07:30 98.8 F 102 H 16 143/65 93 L 10/04/17 04:28 98.9 F 95 H 17 107/57 96 10/04/17 04:00 98.6 F 85 17 127/58 93 L 10/04/17 00:00 98.6 F 85 17 127/58 93 L Pain Assessment - Last Documented Pain Intensity 0 Pain Scale Used Alla Faces Intake and Output: Intake & Output 10/02/17 10/03/17 10/04/17 10/05/17 11:59 11:59 11:59 11:59 Intake Total 817 2090 30 Output Total 350 1500 650 Balance 321 886 -483 Weight 62.2 kg Lab Results: Accuchecks Date 10/04/17 Date 10/04/17 Date 10/04/17 Date 10/03/17 Time 16:30 Time 11:30 Time 07:30 Time 22:00 Accucheck Value: 301 Accucheck Value: 372 Accucheck Value: 431 Accucheck Value: 265 Assessment/Plan (1) C. 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 Diabetes mellitus complication status: with hyperosmolarity (5) Gram positive bacterial infection Current Visit: Yes Status: Acute Assessment & Plan: Chief Complaint Diagnosis dehydration,vomiting,c-diff Allergies Allergy/AdvReac Type Severity Reaction Status Date / Time ranitidine Allergy Verified 06/30/17 09:21 Vital Signs (Last 24 hours) Temp Pulse Resp BP Pulse Ox 10/04/17 16:00 99.1 F 91 H 18 125/55 97 10/04/17 11:52 98.6 F 100 H 16 140/62 93 L 10/04/17 07:30 98.8 F 102 H 16 143/65 93 L 10/04/17 04:28 98.9 F 95 H 17 107/57 96 10/04/17 04:00 98.6 F 85 17 127/58 93 L 10/04/17 00:00 98.6 F 85 17 127/58 93 L Current Medications Generic Name Dose Route Start Last Admin Trade Name Freq PRN Reason Stop Dose Admin Acetaminophen 650 mg 10/02/17 16:53 Tylenol 325 Mg PEG 11/01/17 16:52 Q4HPRN PRN PAIN AND/OR FEVER Hydrocodone Bitart/Acetaminophen 1 tab 10/02/17 16:53 [place] 7.5/325 Mg Tab PO 10/07/17 16:52 Q4HPRN PRN PAIN Aspirin 81 mg 10/03/17 10:00 10/04/17 08:10 Baby Aspirin 81 Mg Chew PEG 11/02/17 09:59 81 mg DAILY ABIOLA Administration Bumetanide 1 mg 10/03/17 10:00 10/04/17 08:09 Bumex 1 Mg PEG 11/02/17 09:59 1 mg DAILY ABIOLA Administration Carbidopa/Levodopa 1 tab 10/02/17 22:00 10/04/17 08:09 Sinemet 25/100 Mg PEG 11/01/17 21:59 1 tab BID ABIOLA Administration Cholestyramine Resin 4 gm 10/03/17 10:00 10/04/17 08:09 Questran Light 4 Gm Packet PEG 11/02/17 09:59 4 gm DAILY ABIOLA Administration Ferrous Sulfate 325 mg 10/02/17 22:00 10/04/17 08:09 Ferrous Sulfate (Iron) 220 Mg/5 Ml PEG 11/01/17 21:59 325 mg TID ABIOLA Administration Gabapentin 100 mg 10/02/17 22:00 10/03/17 21:49 Neurontin 100 Mg PEG 11/01/17 21:59 100 mg HS ABIOLA Administration Glucagon 1 mg 10/02/17 16:53 10/02/17 18:44 Glucagen 1 Mg IM 11/01/17 16:52 1 mg Q2H/PRN PRN Administration hypoglycemia Glucose 15 gm 10/03/17 07:35 Glutose 15 Gm Oral Gel PO 11/02/17 07:34 UD PRN Sodium Chloride 1,000 mls @ 100 mls/hr 10/02/17 16:30 10/04/17 17:07 Sodium Chloride 0.9% 1000 Ml IV 11/01/17 16:29 100 mls/hr .Q10H ABIOLA Administration Metronidazole 500 mg in 100 mls @ 100 mls/hr 10/02/17 16:45 10/04/17 13:49 Flagyl 500 Mg Ivpb IV 11/01/17 16:44 100 mls/hr TID ABIOLA Administration Ceftriaxone Sodium/Dextrose 1 g in 50 mls @ 100 mls/hr 10/03/17 22:00 09:38 Rocephin 1 Gm-D5w 50 Ml Bag IV 11/02/17 21:59 100 mls/hr Q24H10 ABIOLA Administration Insulin Aspart 0 unit 10/02/17 16:40 10/04/17 17:08 Novolog Insulin SQ 11/01/17 16:39 6 unit UD PRN Administration Metoprolol Tartrate 25 mg 10/02/17 22:00 10/04/17 08:09 Lopressor 25mg Tab PEG 11/01/17 21:59 25 mg BID ABIOLA Administration Montelukast Sodium 10 mg 10/03/17 10:00 10/04/17 08:12 Singulair 10 Mg PEG 11/02/17 09:59 10 mg DAILY ABIOLA Administration Pantoprazole Sodium 40 mg 10/04/17 13:45 10/04/17 13:49 Protonix 40 Mg Iv IV 11/03/17 13:44 40 mg Q24H ABIOLA Administration Simvastatin 10 mg 10/02/17 22:00 10/03/17 21:50 Zocor 10mg PEG 11/01/17 21:59 10 mg HS ABIOLA Administration Discontinued Medications Generic Name Dose Route Start Last Admin Trade Name Freq PRN Reason Stop Dose Admin Dextrose Confirm 10/03/17 07:13 D50w 50 Ml Abboject Administered 10/03/17 07:14 Dose 50 ml IV .STK-MED ONE Dextrose 25 ml 10/03/17 07:17 10/03/17 07:20 D50w 50 Ml Abboject IV 10/03/17 07:18 25 ml STAT ONE Administration Glucose Confirm 10/02/17 18:39 Glutose 15 Gm Oral Gel Administered 10/02/17 18:40 Dose 15 gm PO .STK-MED ONE Intake & Output (Last 24 hours) 10/02/17 10/03/17 10/04/17 10/05/17 11:59 11:59 11:59 11:59 Intake Total 817 2090 30 Output Total 350 1500 650 Balance 463 832 -502 Weight 62.2 kg Microbiology Results (Last 24 hours) 10/02/17 16:20 Blood Blood Culture Gram Stain - Final 10/02/17 16:20 Blood Blood Culture - Preliminary GRAM NEGATIVE ID AND SENSITIVITY PENDING 10/02/17 17:38 Urine, Indwelling Catheter Urine Culture - Final Escherichia Coli Orders (Last 24 hours) Category Date Time Status Admit as Inpatient ROUTINE Care 10/04/17 07:30 Active Miscellaneous Nursing Order ROUTINE Care 10/03/17 19:58 Active Ceftriaxone 1 GM/50 ML PREMIX* [ROCEPHIN 1 Gm-D5w 50 ml Med 10/03/17 22:00 Active Bag] 1 g in 50 ml IV Q24H10 Pantoprazole 40 mg [Protonix 40 mg IV] Med 10/04/17 13:45 Active 40 mg IV Q24H Patient Care Notes (Last 24 hours) 10/04/17 13:23 Nursing Note by Monika Hager see medsurg assessment, pt denies pain when assessed. pt answers and open eyes to name and will respond to examiner but usually not appropriately. pt is cooperative with care, all procedures explained to her. pt donta tube feeding well, no residual noted this morning or this afternoon, but after nurse admin morning meds (see MAR) for time), pt vomited small amt of emesis, appearing to be meds. nurse consulted with Dr. Jacquelyn Ramirez's nurse and HS, nurse will hold Iron and Questran admin and afternoon flush, and change protonix from per PEG to IV. no further emesis noted. Addendum entered by Monika Hager 10/04/17 13:34: error above, pt was not on PEG protonix, will start IV today. Initialized on 10/04/17 13:23 - END OF NOTE 10/03/17 22:21 Nursing Note by Rica Simons notified Dr. Valladares in the ER of a critical blood culture of positive gram cocci. Dr. Valladares hasd already put Pt on Rocephin 1gram IVPB every 24 hours and first dose has been administered. Initialized on 10/03/17 22:21 - END OF NOTE Code(s): A49.9 - BACTERIAL INFECTION, UNSPECIFIED
[2017-10-04] MEDS: Neurontin 100 MG PEG SCH (22:27)
[2017-10-04] MEDS: Zocor 10MG PEG SCH (22:27)
[2017-10-05] MEDS: Sodium Chloride 0.9% 1000 ML 1,000 ML IV SCH (04:41)
[2017-10-05] MEDS: NovoLOG Insulin SQ PRN ×2 (07:46→12:20)
[2017-10-05] MEDS ORDERED: PHARMACY DOSING REQUIRED: VANCOMYCIN IV ONE (09:45)
[2017-10-05] MEDS ORDERED: VANCOCIN 1 GM VIAL*** 1.25 GM in Sodium Chloride 0.9% 250 ML 250 ML IV ONE (10:30)
--- NOTE | 2017-10-05 11:22 | HP ---
HISTORY OF PRESENT ILLNESS: Shazia Grossman is a 72 year old woman with past medical history of hypertension, congestive heart failure, coronary artery disease, atrial fibrillation, diabetes mellitus, chronic obstructive pulmonary disease, chronic back pain, hyperlipidemia and anxiety. She is a resident at [facility]. There is undergoing treatment for her stage IV sacral decubitus ulcer. The last week she was doing routine management and additional IV fluid treatment per nephrology. Eventually she improved clinically. Earlier this week she was diagnosed with Clostridium difficile colitis and was placed on treatment with Flagyl. Our office was contacted by the patient's nurse today stating that the patient is having projectile vomiting with one episode last night and another episode today and has been unable to tolerate feeding. At the time of my evaluation of the patient earlier this afternoon, the patient was drowsy but arousable, appears fatigued and did not answer questions. PAST MEDICAL HISTORY: As noted above. PAST SURGICAL HISTORY: Status post PEG tube placement which was recently changed a few weeks ago. Status post cataract surgery, right hip surgery, left leg vein surgery. ALLERGIES: RANITIDINE. MEDICATIONS: Medications were reviewed. FAMILY HISTORY: Noncontributory. SOCIAL HISTORY: The patient lives at a residential. No history of smoking, alcohol abuse or illicit drug use. REVIEW OF SYSTEMS: Unobtainable since the patient is a poor historian and did not answer any questions. However reported history of vomiting last night and today. The patient has been unable to tolerate feedings. PHYSICAL EXAMINATION: An elderly frail woman lying comfortably in bed, not in acute distress, appeared fatigued. VITAL SIGNS: Blood pressure 124/70, heart rate 88, respiratory rate 18, temperature 98.4F. Oxygen saturation 96%. HEENT: Pallor is present. NECK: No JVD is present. CVS: S1, S2 present. RESPIRATORY: Breath sounds are bilaterally diminished. ABDOMEN: Soft. PEG tube present. NEURO: The patient was drowsy but easily arousable. She did not answer questions. EXTREMITIES: No edema on bilateral lower extremities. She did have 2.5 cm sized decubitus ulcer was noted on lateral aspect of right foot. Examination of sacral decubitus was deferred at this time. However staging and progress of that was discussed. LABORATORY DATA AND TESTS: Labs are pending. ASSESSMENT: A 72 year old woman with impression: 1) DEHYDRATION. 2) GENERALIZED WEAKNESS. 3) PROJECTILE VOMITING. 4) CLOSTRIDIUM DIFFICILE COLITIS. 5) HISTORY OF HYPERTENSION/CONGESTIVE HEART FAILURE. 6) DIABETES MELLITUS. 7) STAGE IV SACRAL DECUBITUS ULCER. Management of sacral decubitus ulcer will be done by PT while the patient is at [facility]. 8) CHRONIC OBSTRUCTIVE PULMONARY DISEASE. 9) CHRONIC BACK PAIN. 10) CHRONIC ANEMIA. PLAN: In view of the patient's worsened clinical findings the patient is being admitted to [facility]. Baseline labs have been requested. Will start IV fluids. Addition of proton pump inhibitor. PEG tube feedings are placed on hold. Continue to follow neurologic and hemodynamic status. CT scan of abdomen and pelvis have been requested. Continue Flagyl. I have discussed with the patient's daughter regarding the patient's clinical condition, recent events and regarding her transfer. The patients daughter was be in understanding and agreement of the same.
--- NOTE | 2017-10-05 12:24 | PCM.DS ---
Discharge Summary Date of Admission: 10/04/17 07:30 Admitting Physician: TUNDE BADILLO Primary Care Provider: CUAUHTEMOC DE LA GARZA Allergies Allergies ranitidine Allergy (Verified 06/30/17 09:21) Hospital Summary - Hospital Course Hospital Course: Chief Complaint Diagnosis dehydration,vomiting,c-diff Allergies Allergy/AdvReac Type Severity Reaction Status Date / Time ranitidine Allergy Verified 06/30/17 09:21 Vital Signs (Last 24 hours) Temp Pulse Resp BP Pulse Ox 10/05/17 07:37 98.7 F 95 H 20 138/62 94 L 10/05/17 04:00 99.0 F 89 20 135/61 95 10/04/17 23:16 99.0 F 96 H 17 169/72 96 10/04/17 20:10 98.5 F 97 H 20 140/62 96 10/04/17 16:00 99.1 F 91 H 18 125/55 97 Current Medications Generic Name Dose Route Start Last Admin Trade Name Freq PRN Reason Stop Dose Admin Acetaminophen 650 mg 10/02/17 16:53 Tylenol 325 Mg PEG 11/01/17 16:52 Q4HPRN PRN PAIN AND/OR FEVER Hydrocodone Bitart/Acetaminophen 1 tab 10/02/17 16:53 [place] 7.5/325 Mg Tab PO 10/07/17 16:52 Q4HPRN PRN PAIN Aspirin 81 mg 10/03/17 10:00 10/04/17 08:10 Baby Aspirin 81 Mg Chew PEG 11/02/17 09:59 81 mg DAILY ABIOLA Administration Bumetanide 1 mg 10/03/17 10:00 10/04/17 08:09 Bumex 1 Mg PEG 11/02/17 09:59 1 mg DAILY ABIOLA Administration Carbidopa/Levodopa 1 tab 10/02/17 22:00 10/04/17 22:27 Sinemet 25/100 Mg PEG 11/01/17 21:59 1 tab BID ABIOLA Administration Cholestyramine Resin 4 gm 10/03/17 10:00 10/04/17 08:09 Questran Light 4 Gm Packet PEG 11/02/17 09:59 4 gm DAILY ABIOLA Administration Ferrous Sulfate 325 mg 10/02/17 22:00 10/04/17 08:09 Ferrous Sulfate (Iron) 220 Mg/5 Ml PEG 11/01/17 21:59 325 mg TID ABIOLA Administration Gabapentin 100 mg 10/02/17 22:00 10/04/17 22:27 Neurontin 100 Mg PEG 11/01/17 21:59 100 mg HS ABIOLA Administration Glucagon 1 mg 10/02/17 16:53 10/02/17 18:44 Glucagen 1 Mg IM 11/01/17 16:52 1 mg Q2H/PRN PRN Administration hypoglycemia Glucose 15 gm 10/03/17 07:35 Glutose 15 Gm Oral Gel PO 11/02/17 07:34 UD PRN Sodium Chloride 1,000 mls @ 100 mls/hr 10/02/17 16:30 10/05/17 04:41 Sodium Chloride 0.9% 1000 Ml IV 11/01/17 16:29 100 mls/hr .Q10H ABIOLA Administration Ceftriaxone Sodium/Dextrose 1 g in 50 mls @ 100 mls/hr 10/03/17 22:00 09:38 Rocephin 1 Gm-D5w 50 Ml Bag IV 11/02/17 21:59 100 mls/hr Q24H10 ABIOLA Administration Vancomycin HCl 0.75 gm/ Sodium 250 mls @ 167 mls/hr 10/05/17 22:00 Chloride IV 11/04/17 21:59 Q12H ABIOLA Insulin Aspart 0 unit 10/02/17 16:40 10/05/17 07:46 Novolog Insulin SQ 11/01/17 16:39 12 unit UD PRN Administration Metoprolol Tartrate 25 mg 10/02/17 22:00 10/04/17 22:27 Lopressor 25mg Tab PEG 11/01/17 21:59 25 mg BID ABIOLA Administration Montelukast Sodium 10 mg 10/03/17 10:00 10/04/17 08:12 Singulair 10 Mg PEG 11/02/17 09:59 10 mg DAILY ABIOLA Administration Pantoprazole Sodium 40 mg 10/04/17 13:45 10/04/17 13:49 Protonix 40 Mg Iv IV 11/03/17 13:44 40 mg Q24H ABIOLA Administration Simvastatin 10 mg 10/02/17 22:00 10/04/17 22:27 Zocor 10mg PEG 11/01/17 21:59 10 mg HS ABIOLA Administration Discontinued Medications Generic Name Dose Route Start Last Admin Trade Name Manny DINHN Reason Stop Dose Admin Dextrose Confirm 10/03/17 07:13 D50w 50 Ml Abboject Administered 10/03/17 07:14 Dose 50 ml IV .STK-MED ONE Dextrose 25 ml 10/03/17 07:17 10/03/17 07:20 D50w 50 Ml Abboject IV 10/03/17 07:18 25 ml STAT ONE Administration Glucose Confirm 10/02/17 18:39 Glutose 15 Gm Oral Gel Administered 10/02/17 18:40 Dose 15 gm PO .STK-MED ONE Metronidazole 500 mg in 100 mls @ 100 mls/hr 10/02/17 16:45 10/04/17 22:26 Flagyl 500 Mg Ivpb IV 11/01/17 16:44 100 mls/hr TID ABIOLA Administration Vancomycin HCl 1.25 gm/ Sodium 250 mls @ 167 mls/hr 10/05/17 10:30 Chloride IV 10/05/17 11:59 ONCE ONE Non-Formulary Medication 1 each 10/05/17 09:45 Pharmacy Dosing Required: Vancomycin IV 10/05/17 09:46 STAT ONE Intake & Output (Last 24 hours) 10/03/17 10/04/17 10/05/17 10/06/17 11:59 11:59 11:59 11:59 Intake Total 817 2090 4318 Output Total 350 1500 1450 Balance 435 874 4360 Weight 62.2 kg Microbiology Results (Last 24 hours) 10/02/17 16:25 Blood Blood Culture Gram Stain - Final 10/02/17 16:25 Blood Blood Culture - Preliminary GRAM POSITIVE ID AND SENSITIVITY PENDING 10/02/17 16:20 Blood Blood Culture Gram Stain - Final 10/02/17 16:20 Blood Blood Culture - Final Staphylococcus Aureus 10/02/17 17:38 Urine, Indwelling Catheter Urine Culture - Final Escherichia Coli Orders (Last 24 hours) Category Date Time Status CDIFF (INHOUSE) [C.Difficile by PCR] Routine Lab 10/05/17 Uncollected Vancomycin, Trough Routine Lab 10/07/17 09:30 Ordered Pantoprazole 40 mg [Protonix 40 mg IV] Med 10/04/17 13:45 Active 40 mg IV Q24H Pharmacy Dose Request: Vancomy [Pharmacy Dosing Med 10/05/17 09:45 Discontinued Required: Vancomycin] 1 each IV STAT ONE Vancomycin HCl 1 gm Inj [Vancocin 1 gm Vial] 0.75 Med 10/05/17 22:00 Active gm NaCl 0.9% 250 ml [Sodium Chloride 0.9% 250 ML] 250 ml IV Q12H Vancomycin HCl 1 gm Inj [Vancocin 1 gm Vial] 1.25 Med 10/05/17 10:30 Discontinued gm NaCl 0.9% 250 ml [Sodium Chloride 0.9% 250 ML] 250 ml IV ONCE Patient Care Notes (Last 24 hours) 10/05/17 12:06 Nursing Note by Catrachita Witt Pt. had bowel movement and it was soft unformed stool with no odor. Initialized on 10/05/17 12:06 - END OF NOTE 10/05/17 06:41 Nursing Note by Radha Rivera feeding tube flushed at 2100 with 100cc's, when more added pt began to cough and gag, flushed with 100cc's at 0100, attempted to flush with more at 0500, pt again began to cough and gag. residual checked before flushing and was 0 each time. Initialized on 10/05/17 06:41 - END OF NOTE 10/05/17 05:18 Nursing Note by Radha Rivera charge pt 1 tegaderm, dressing changed on IV, leaking, tighted flushed, doing fine now. Initialized on 10/05/17 05:18 - END OF NOTE 10/04/17 13:23 Nursing Note by Monika Hager see medsurg assessment, pt denies pain when assessed. pt answers and open eyes to name and will respond to examiner but usually not appropriately. pt is cooperative with care, all procedures explained to her. pt donta tube feeding well, no residual noted this morning or this afternoon, but after nurse admin morning meds (see MAR) for time), pt vomited small amt of emesis, appearing to be meds. nurse consulted with Dr. Jacquelyn Ramirez's nurse and , nurse will hold Iron and Questran admin and afternoon flush, and change protonix from per PEG to IV. no further emesis noted. Addendum entered by Monika Hager 10/04/17 13:34: error above, pt was not on PEG protonix, will start IV today. Initialized on 10/04/17 13:23 - END OF NOTE - Vitals & Intake/Output Vital Signs: Vital Signs Temperature 98.7 F 10/05/17 07:37 Pulse Rate 95 H 10/05/17 07:37 Respiratory Rate 20 10/05/17 07:37 Blood Pressure 138/62 10/05/17 07:37 O2 Sat by Pulse Oximetry 94 L 10/05/17 07:37 Intake & Output: Intake & Output 10/03/17 10/04/17 10/05/17 10/06/17 11:59 11:59 11:59 11:59 Intake Total 817 2090 4318 Output Total 350 1500 1450 Balance 761 760 3147 Weight 62.2 kg - Lab Result Diagrams: 10/02/17 16:20 10/02/17 16:20 Lab Results-Last 24 Hrs: Accuchecks Date 10/05/17 Date 10/04/17 Date 10/04/17 Time 07:30 Time 21:00 Time 16:30 Accucheck Value: 453 Accucheck Value: 271 Accucheck Value: 301 Micro Results-Entire Visit: Microbiology 10/02/17 16:25 Blood Culture Gram Stain - Final Blood Blood Culture - Preliminary GRAM POSITIVE ID AND SENSITIVITY PENDING 10/02/17 16:20 Blood Culture Gram Stain - Final Blood Blood Culture - Final Staphylococcus Aureus 10/02/17 17:38 Urine Culture - Final Urine, Indwelling Catheter Escherichia Coli Accuchecks Date 10/05/17 Date 10/04/17 Date 10/04/17 Time 07:30 Time 21:00 Time 16:30 Accucheck Value: 453 Accucheck Value: 271 Accucheck Value: 301 Discharge Exam General Appearance: no apparent distress, alert Neurologic Exam: alert, oriented x 3, cooperative, normal mood/affect, nml cerebellar function, sensation nml, No motor deficits Skin Exam: normal color, warm, dry Eye Exam: PERRL, EOMI, eyes nml inspection Ears, Nose, Throat Exam: normal ENT inspection, pharynx normal, moist mucous membranes Neck Exam: normal inspection, non-tender, supple, full range of motion Respiratory Exam: normal breath sounds, lungs clear, No respiratory distress Cardiovascular Exam: regular rate/rhythm, normal heart sounds Gastrointestinal/Abdomen Exam: soft, No tenderness, No mass Extremity Exam: normal inspection, normal range of motion Back Exam: normal inspection, normal range of motion, No CVA tenderness, No vertebral tenderness Pelvic Exam: deferred Rectal Exam: deferred Final Diagnosis/Problem List - Final Discharge Diagnosis/Problem (1) Staphylococcal infection Current Visit: Yes Status: Acute Assessment & Plan: Last Vital Signs Temp 98.7 F 10/05/17 07:37 Pulse 95 H 10/05/17 07:37 Resp 20 10/05/17 07:37 BP 138/62 10/05/17 07:37 Pulse Ox 94 L 10/05/17 07:37 Allergies ranitidine Allergy (Verified 06/30/17 09:21) Active Medications Acetaminophen (Tylenol 325 Mg) 650 mg PEG Q4HPRN PRN PRN Reason: PAIN AND/OR FEVER Stop: 11/01/17 16:52 Hydrocodone Bitart/Acetaminophen ([place] 7.5/325 Mg Tab) 1 tab PO Q4HPRN PRN PRN Reason: PAIN Stop: 10/07/17 16:52 Aspirin (Baby Aspirin 81 Mg Chew) 81 mg PEG DAILY [facility] Stop: 11/02/17 09:59 Last Admin: 10/04/17 08:10 Dose: 81 mg Bumetanide (Bumex 1 Mg) 1 mg PEG DAILY ABIOLA Stop: 11/02/17 09:59 Last Admin: 10/04/17 08:09 Dose: 1 mg Carbidopa/Levodopa (Sinemet 25/100 Mg) 1 tab PEG BID ABIOLA Stop: 11/01/17 21:59 Last Admin: 10/04/17 22:27 Dose: 1 tab Cholestyramine Resin (Questran Light 4 Gm Packet) 4 gm PEG DAILY [facility] Stop: 11/02/17 09:59 Last Admin: 10/04/17 08:09 Dose: 4 gm Ferrous Sulfate (Ferrous Sulfate (Iron) 220 Mg/5 Ml) 325 mg PEG TID ABIOLA Stop: 11/01/17 21:59 Last Admin: 10/04/17 08:09 Dose: 325 mg Gabapentin (Neurontin 100 Mg) 100 mg PEG HS ABIOLA Stop: 11/01/17 21:59 Last Admin: 10/04/17 22:27 Dose: 100 mg Glucagon (Glucagen 1 Mg) 1 mg IM Q2H/PRN PRN PRN Reason: hypoglycemia Stop: 11/01/17 16:52 Last Admin: 10/02/17 18:44 Dose: 1 mg Glucose (Glutose 15 Gm Oral Gel) 15 gm PO UD PRN Stop: 11/02/17 07:34 Sodium Chloride (Sodium Chloride 0.9% 1000 Ml) 1,000 mls @ 100 mls/hr IV .Q10H ABIOLA Stop: 11/01/17 16:29 Last Admin: 10/05/17 04:41 Dose: 100 mls/hr Ceftriaxone Sodium/Dextrose (Rocephin 1 Gm-D5w 50 Ml Bag) 1 g in 50 mls @ 100 mls/hr IV Q24H10 [facility] Stop: 11/02/17 21:59 Last Admin: 10/04/17 09:38 Dose: 100 mls/hr Vancomycin HCl 0.75 gm/ Sodium (Chloride) 250 mls @ 167 mls/hr IV Q12H [facility] Stop: 11/04/17 21:59 Insulin Aspart (Novolog Insulin) 0 unit SQ UD PRN Stop: 11/01/17 16:39 Last Admin: 10/05/17 07:46 Dose: 12 unit Metoprolol Tartrate (Lopressor 25mg Tab) 25 mg PEG BID ABIOLA Stop: 11/01/17 21:59 Last Admin: 10/04/17 22:27 Dose: 25 mg Montelukast Sodium (Singulair 10 Mg) 10 mg PEG DAILY ABIOLA Stop: 11/02/17 09:59 Last Admin: 10/04/17 08:12 Dose: 10 mg Pantoprazole Sodium (Protonix 40 Mg Iv) 40 mg IV Q24H ABIOLA Stop: 11/03/17 13:44 Last Admin: 10/04/17 13:49 Dose: 40 mg Simvastatin (Zocor 10mg) 10 mg PEG HS ABIOLA Stop: 11/01/17 21:59 Last Admin: 10/04/17 22:27 Dose: 10 mg Intake & Output 10/05/17 10/06/17 11:59 11:59 Intake Total 4318 Output Total 1450 Balance 2868 Orders 10/04/17 13:45 Pantoprazole 40 mg [Protonix 40 mg IV] 40 mg IV Q24H 10/05/17 CDIFF (INHOUSE) [C.Difficile by PCR] Routine 10/05/17 22:00 Vancomycin HCl 1 gm Inj [Vancocin 1 gm Vial] 0.75 gm NaCl 0.9% 250 ml [ Sodium Chloride 0.9% 250 ML] 250 ml IV Q12H 10/07/17 09:30 Vancomycin, Trough Routine Microbiology 10/02/17 16:25 Blood Blood Culture Gram Stain - Final 10/02/17 16:25 Blood Blood Culture - Preliminary GRAM POSITIVE ID AND SENSITIVITY PENDING 10/02/17 16:20 Blood Blood Culture Gram Stain - Final 10/02/17 16:20 Blood Blood Culture - Final Staphylococcus Aureus 10/02/17 17:38 Urine, Indwelling Catheter Urine Culture - Final Escherichia Coli (2) C. difficile diarrhea Current Visit: Yes Status: Resolved Onset Date: ~10/02/17 (3) Dehydration Current Visit: Yes Status: Resolved Onset Date: ~10/02/17 (4) Vomiting Current Visit: Yes Status: Acute Onset Date: ~10/02/17 (5) Type 2 diabetes mellitus Current Visit: Yes Status: Chronic (6) Gram positive bacterial infection Current Visit: Yes Status: Acute Onset Date: ~10/04/17 - Discharge Discharge Date: 10/05/17 Disposition: Home, Self-Care Condition: Stable Prescriptions: New Clindamycin 300 mg/50 ml [Cleocin Phosphate IV 300 MG/50 ML] 300 mg IV BID 10 Days #20 ivpb Continue Insulin Detemir [Levemir] 15 unit SQ DAILY Montelukast Sodium [Singulair] 10 mg PEG DAILY Insulin Aspart [NovoLOG Insulin] 1 unit SQ UD Simvastatin 10 mg PEG HS Metoprolol Tartrate 25 mg [Lopressor 25MG Tab] 25 mg PEG BID Entacapone 200 mg [Comtan 200 MG] 200 mg PEG BID Carbidopa/Levodopa [Carbidopa-Levo 25-100 Tab] 1 each PEG BID Bumetanide 1 mg [Bumex 1 mg] 1 mg PEG DAILY Aspirin 81 mg G-TUBE DAILY Gabapentin [Neurontin] 100 mg PO HS Acetaminophen 325 mg [Tylenol 325 mg] 650 mg PO Q4HPRN PRN PRN Reason: Pain And/Or Fever Hydrocodone/Acetaminophen [Vilas 7.5-325 Tablet] 1 each PO Q4HPRN PRN PRN Reason: Pain Glucagon 1 mg [GlucaGen 1 MG] 1 mg IM Q2H/PRN PRN PRN Reason: hypoglycemia Insulin Detemir [Levemir] 10 unit SQ HS Ferrous Sulfate 325 mg PO TID Cholestyramine Light 4 gm [QUESTRAN Light 4 GM Packet] 4 gm PEG DAILY Follow up with: CUAUHTEMOC DE LA GARZA [Primary Care Provider] - 1 Week
[2017-10-05 12:25] VITALS: BP 128/62; PULSE 60; O2SAT 97
[2017-10-05] MEDS: BUMEX 1 MG PEG SCH (12:29)
[2017-10-05] MEDS: Sinemet 25/100 MG PEG SCH (12:29)
[2017-10-05] MEDS: Lopressor 25MG Tab PEG SCH (12:29)
[2017-10-05] MEDS: Singulair 10 MG PEG SCH (12:29)
[2017-10-05] MEDS ORDERED: VANCOCIN 1 GM VIAL*** 0.75 GM in Sodium Chloride 0.9% 250 ML 250 ML IV SCH (22:00)
[2017-10-07] MEDS ORDERED: TROUGH DRUG LEVELS IJ ONE (09:30)
== END 2017-10-05 15:30 | disposition home or self-care (01) | DRG 371 ==
LOC: MED SURG 07:30 → OBSVTOIN 10-04 07:30
PROVIDERS: ADMIT General Practice; ATTEND General Practice
DX: A04.72 Enterocolitis due to Clostridium difficile, not specified as recurrent (principal); B95.8 Unspecified staphylococcus as the cause of diseases classified elsewhere; L89.154 Pressure ulcer of sacral region, stage 4; E86.0 Dehydration; E11.9 Type 2 diabetes mellitus without complications; Z79.4 Long term (current) use of insulin; I25.10 Atherosclerotic heart disease of native coronary artery without angina pectoris; E78.5 Hyperlipidemia, unspecified; R11.10 Vomiting, unspecified; J44.9 Chronic obstructive pulmonary disease, unspecified; I48.91 Unspecified atrial fibrillation; I50.9 Heart failure, unspecified; F41.9 Anxiety disorder, unspecified; Z93.1 Gastrostomy status; F02.80 Dementia in other diseases classified elsewhere, unspecified severity, without behavioral disturbance, psychotic disturbance, mood disturbance, and anxiety; E78.00 Pure hypercholesterolemia, unspecified; L89.612 Pressure ulcer of right heel, stage 2; G20 Parkinson's disease; I12.9 Hypertensive chronic kidney disease with stage 1 through stage 4 chronic kidney disease, or unspecified chronic kidney disease; N18.2 Chronic kidney disease, stage 2 (mild); Z79.899 Other long term (current) drug therapy
CPT/HCPCS: 36415; 71045; 74176; 80053; 81000; 83690; 83735; 85027; 87040; 87077; 87086; 87186; G0378; J0696; J1610; J3370; A9270-GY

== ENCOUNTER 2017-11-13 14:14 | Inpatient (IN) | payer MEDICARE, OTHER ==
[2017-11-13] MEDS ORDERED: Zofran 4 MG/2 ML VIAL IV ONE (14:34)
--- NOTE | 2017-11-13 14:34 | ERPHSYRPT ---
- History of Present Illness Time Seen by Provider: 11/13/17 14:56 Source: EMS, group home records Exam Limitations: no limitations Patient Subjective Stated Complaint: pt here from [facility] via ambulance for vomiting today, and possible aspiration,pt also has low sodium and they where giving her extra water through g tube and thats when vomiting started Triage Nursing Assessment: pt alert, pt is non verbal skin w/d/pale. resp easy, abd soft, pt incont of stool,pt cleaned up. has bandage to left buttock, and left arm Physician History: The patient is a 72-year-old female brought in by ambulance from [facility] with the patient was getting extra flushes through her G- tube for low serum sodium level. Today she vomited. There is also concerned that she may have a UTI. The patient is non-verbal with advanced Parkinson's dementia. Her past medical history is significant for Parkinson's dementia, hypertension, dysphasia, diabetes, COPD, and chronic UTI. Timing/Duration: today Severity: moderate Associated Symptoms: vomiting Allergies/Adverse Reactions: ranitidine Allergy (Verified 11/13/17 14:32) Home Medications: Aspirin 81 mg G-TUBE DAILY 09/23/16 [History] Bumetanide 1 mg [Bumex 1 mg] 1 mg PEG DAILY 09/23/16 [History] Carbidopa/Levodopa [Carbidopa-Levo 25-100 Tab] 1 each PEG BID 09/23/16 [History] Entacapone 200 mg [Comtan 200 MG] 200 mg PEG BID 09/23/16 [History] Insulin Aspart [NovoLOG Insulin] 1 unit SQ UD 09/23/16 [History] Metoprolol Tartrate 25 mg [Lopressor 25MG Tab] 25 mg PEG BID 09/23/16 [ History] Montelukast Sodium [Singulair] 10 mg PEG DAILY 09/23/16 [History] Simvastatin 10 mg PEG HS 09/23/16 [History] Acetaminophen 325 mg [Tylenol 325 mg] 650 mg PO Q4HPRN PRN 11/04/16 [ History] Gabapentin [Neurontin] 100 mg PO HS 11/04/16 [History] Glucagon 1 mg [GlucaGen 1 MG] 1 mg IM Q2H/PRN PRN 03/24/17 [History] Ferrous Sulfate 325 mg PO TID 06/30/17 [History] Insulin Detemir [Levemir] 20 unit SQ BID 06/30/17 [History] Cholestyramine/Aspartame [Questran Light Packet] 4 gm DAILY 11/13/17 [History] Hydrocodone Bit/Acetaminophen [[place] 7.5-325 Tablet] 1 ea Q6H PRN PRN 11/13/17 [ History] Hx Tetanus, Diphtheria Vaccination/Date Given: Yes Hx Influenza Vaccination/Date Given: (unsure) Hx Pneumococcal Vaccination/Date Given: (unsure) Immunizations Up to Date: Yes - Review of Systems Constitutional: No Fever, No Chills Eyes: No Symptoms Ears, Nose, & Throat: No Symptoms Respiratory: No Cough, No Dyspnea Cardiac: No Chest Pain, No Edema, No Syncope Abdominal/Gastrointestinal: Vomiting, No Abdominal Pain, No Nausea, No Diarrhea Genitourinary Symptoms: No Dysuria Musculoskeletal: No Back Pain, No Neck Pain Skin: No Rash Neurological: No Dizziness, No Focal Weakness, No Sensory Changes Psychological: No Symptoms Endocrine: No Symptoms Hematologic/Lymphatic: No Symptoms Immunological/Allergic: No Symptoms All Other Systems: Reviewed and Negative - Past Medical History Pertinent Past Medical History: Yes Neurological History: Other ENT History: Cataracts, Other Cardiac History: Arrhythmia, High Cholesterol, Hypertension Respiratory History: CHF, COPD Endocrine Medical History: Diabetes Type II Musculoskeletal History: Fractures, Osteoarthritis, Other GI Medical History: No Pertinent History History: Other Psycho-Social History: Anxiety Female Reproductive Disorders: No Pertinent History Other Medical History: dysphagia; neuromuscular bladder dysfunction; pressure ulcer/cocyx. tremors - Past Surgical History Past Surgical History: Yes Neuro Surgical History: No Pertinent History Cardiac: No Pertinent History, Vascular Surgery Respiratory: No Pertinent History Gastrointestinal: Other Genitourinary: No Pertinent History Musculoskeletal: Orthopedic Surgery Female Surgical History: No Pertinent History Other Surgical History: cataract surgery on left eye; right hip surgery; left leg vein surgery; PEG tube placement, R knee surgery - Social History Smoking Status: Unknown if ever smoked Exposure to second hand smoke: No Drug Use: none Patient Lives Alone: No (nh) - Female History Hx Last Menstrual Period: psot Hx Now: No - Nursing Vital Signs Nursing Vital Signs: Initial Vital Signs Temperature 99.8 F 11/13/17 14:16 Pulse Rate 103 H 11/13/17 14:16 Respiratory Rate 18 11/13/17 14:16 Blood Pressure 156/83 11/13/17 14:16 O2 Sat by Pulse Oximetry 91 L 11/13/17 14:16 Pain Scale Pain Intensity 0 - Physical Exam General Appearance: no apparent distress, thin Eye Exam: PERRL/EOMI, eyes nml inspection Ears, Nose, Throat Exam: normal ENT inspection, TMs normal, pharynx normal, moist mucous membranes Neck Exam: normal inspection, non-tender, supple, full range of motion Respiratory Exam: normal breath sounds, lungs clear, No respiratory distress Cardiovascular Exam: normal heart sounds, normal peripheral pulses, tachycardia Gastrointestinal/Abdomen Exam: soft, normal bowel sounds, No tenderness, No mass Pelvic Exam: not done Rectal Exam: not done Back Exam: normal inspection, normal range of motion, No CVA tenderness, No vertebral tenderness Extremity Exam: normal inspection Neurologic Exam: aphasia, other (severe dementia without appropriate response to verbal.) Skin Exam: normal color, warm, dry, No rash Lymphatic Exam: No adenopathy SpO2 Interpretation: normal SpO2: 100 Oxygen Delivery: Room Air - Course EKG Interpreted by Me: RATE, Sinus Rhythm, NORMAL AXIS, NORMAL INTERVALS, NORMAL QRS, NORMAL ST-T - Radiology Exams Chest X-ray Interpretation: Reviewed by me, Teleradiologist Report, Infiltrates (RUL airspace disease without consolidation per Dr Adler.) Ordered Tests: Active Orders 24 hr Category Date Time Status Cath for Residual-In & Out STAT Care 11/13/17 14:40 Active EKG-ER Only STAT Care 11/13/17 14:34 Active IV Insertion STAT Care 11/13/17 14:34 Active CHEST 1 VIEW (PORTABLE) Stat Exams 11/13/17 14:35 Completed BLOOD CULTURE Stat Lab 11/13/17 15:26 Received CBC W DIFF Stat Lab 11/13/17 14:34 Completed CMP Stat Lab 11/13/17 15:26 Completed LIPASE Stat Lab 11/13/17 15:26 Completed Lactic Acid Stat Lab 11/13/17 13:10 Completed Manual Differential NC Stat Lab 11/13/17 14:34 Completed TROPONIN Q3H Lab 11/13/17 15:00 Completed TROPONIN Q3H Lab 11/13/17 17:45 Ordered TROPONIN Q3H Lab 11/13/17 20:45 Ordered TROPONIN Q3H Lab 11/13/17 23:45 Ordered TROPONIN Q3H Lab 11/14/17 02:45 Ordered UA W/RFX UR CULTURE Stat Lab 11/13/17 14:39 Uncollected Medication Summary Discontinued Medications Generic Name Dose Route Start Last Admin Trade Name Manny PRN Reason Stop Dose Admin Acetaminophen 650 mg 11/13/17 14:39 11/13/17 14:57 Tylenol 325 Mg PO 11/13/17 14:40 650 mg STAT ONE Administration Acetaminophen Confirm 11/13/17 14:49 Tylenol 325 Mg Administered 11/13/17 14:50 Dose 650 mg .ROUTE .STK-MED ONE Sodium Chloride 500 mls @ 999 mls/hr 11/13/17 14:34 11/13/17 14:57 Sodium Chloride 0.9% 1000 Ml IV 11/13/17 15:04 999 mls/hr .Q31M STA Administration Sodium Chloride Confirm 11/13/17 14:49 Sodium Chloride 0.9% 1000 Ml Administered 11/13/17 14:50 Dose 1,000 mls @ ud .ROUTE .STK-MED ONE Ondansetron HCl 4 mg 11/13/17 14:34 11/13/17 14:58 Zofran 4 Mg/2 Ml Vial IV 11/13/17 14:35 4 mg STAT ONE Administration Ondansetron HCl Confirm 11/13/17 14:49 Zofran 4 Mg/2 Ml Vial Administered 11/13/17 14:50 Dose 4 mg .ROUTE .STK-MED ONE Lab/Rad Data: Laboratory Result Diagrams 11/13/17 14:34 11/13/17 15:26 Laboratory Results 11/13/17 11/13/17 11/13/17 Range/Units 15:26 15:00 14:34 WBC 19.0 H (4.0-10.5) K/mm3 RBC 3.13 L (4.1-5.4) M/mm3 Hgb 9.0 L (12.0-16.0) gm/dl Hct 30.6 L (35-47) % MCV 97.8 (78-100) fl MCH 28.7 (26-32) pg MCHC 29.4 L (32-36) g/dl RDW 16.5 H (11.5-14.0) % Plt Count 194 (150-450) K/mm3 MPV 12.8 H (6-9.5) fl Absolute Granulocytes 16.3 H (1.4-6.9) Segmented Neutrophils 78 H (36.0-66.0) % Band Neutrophils 8 H (0.0-2.0) % Lymphocytes (Manual) 9 L (24-44) % Monocytes (Manual) 4 (0.0-12.0) % Myelocytes 1 % Platelet Estimate NORMAL (NORMAL) RBC Morphology ABNORMAL Polychromasia 1+ Basophilic Stippling 2+ Anisocytosis 1+ Sodium 156 H* (137-145) mmol/L Potassium 4.5 (3.5-5.1) mmol/L Chloride 116 H (98-107) mmol/L Carbon Dioxide 31 H (22-30) mmol/L Anion Gap 13.0 (5-15) MEQ/L BUN 77 H (7-17) mg/dL Creatinine 0.87 (0.52-1.04) mg/dL Estimated GFR > 60.0 ML/MIN Glucose 140 H (74-106) mg/dL Lactic Acid (0.4-2.0) Calcium 8.8 (8.4-10.2) mg/dL Total Bilirubin 0.20 (0.2-1.3) mg/dL AST 14 (14-36) U/L ALT 8 (0-35) U/L Alkaline Phosphatase 133 H (38-126) U/L Troponin I 0.025 (0.000-0.034) ng/mL Serum Total Protein 6.9 (6.3-8.2) g/dL Albumin 3.2 L (3.5-5.0) g/dL Lipase 25 (23-300) U/L /15/18 Range/Units 13:10 WBC (4.0-10.5) K/mm3 RBC (4.1-5.4) M/mm3 Hgb (12.0-16.0) gm/dl Hct (35-47) % MCV (78-100) fl MCH (26-32) pg MCHC (32-36) g/dl RDW (11.5-14.0) % Plt Count (150-450) K/mm3 MPV (6-9.5) fl Absolute Granulocytes (1.4-6.9) Segmented Neutrophils (36.0-66.0) % Band Neutrophils (0.0-2.0) % Lymphocytes (Manual) (24-44) % Monocytes (Manual) (0.0-12.0) % Myelocytes % Platelet Estimate (NORMAL) RBC Morphology Polychromasia Basophilic Stippling Anisocytosis Sodium (137-145) mmol/L Potassium (3.5-5.1) mmol/L Chloride (98-107) mmol/L Carbon Dioxide (22-30) mmol/L Anion Gap (5-15) MEQ/L BUN (7-17) mg/dL Creatinine (0.52-1.04) mg/dL Estimated GFR ML/MIN Glucose (74-106) mg/dL Lactic Acid 1.0 (0.4-2.0) Calcium (8.4-10.2) mg/dL Total Bilirubin (0.2-1.3) mg/dL AST (14-36) U/L ALT (0-35) U/L Alkaline Phosphatase (38-126) U/L Troponin I (0.000-0.034) ng/mL Serum Total Protein (6.3-8.2) g/dL Albumin (3.5-5.0) g/dL Lipase (23-300) U/L - Progress Progress: unchanged Discussed with : Henrique Madison Will see patient in: hospital (observation) Counseled pt/family regarding: lab results, diagnosis, need for follow-up, rad results - Departure Time of Disposition: 16:29 Departure Disposition: Observation (Per Stephanie Madison) Clinical Impression: Hypernatremia, Pulmonary infiltrate in right lung on chest x-ray Condition: Stable Critical Care Time: No Referrals: JOAN TURCIOS [Primary Care Provider] -
[2017-11-13] MEDS ORDERED: TYLENOL 325 MG PO ONE (14:39)
[2017-11-13] MEDS ORDERED: Sodium Chloride 0.9% 1000 ML 1,000 ML ONE (14:49)
[2017-11-13] MEDS ORDERED: TYLENOL 325 MG ONE (14:49)
[2017-11-13] MEDS ORDERED: Zofran 4 MG/2 ML VIAL ONE (14:49)
--- NOTE | 2017-11-13 15:09 | XRAY ---
Indication: Short of breath. Cough. Comparison: October 02, 2017. Portable chest demonstrates new right upper lobe airspace disease without consolidation or large effusion. Remaining chest unchanged with stable COPD and right midlung atelectasis/scarring. Heart is not enlarged.
[2017-11-13 15:26] LABS: Hematocrit 30.6 % (35-47); Mean Cell Volume 97.8 fl (78-100); Mean Corpuscular Hgb Concent. 29.4 g/dl (32-36); Mean Platelet Volume 12.8 fl (6-9.5); Platelet Count 194 K/mm3 (150-450); Red Blood Count 3.13 M/mm3 (4.1-5.4); Red Cell Distribution Width 16.5 % (11.5-14.0)
[2017-11-13 15:27] LABS: Mean Corpuscular Hemoglobin 28.7 pg (26-32)
[2017-11-13 15:45] LABS: BAND 8 % (0.0-2.0); Lymphocytes 9 % (24-44); Monocyte 4 % (0.0-12.0); Myelocyte 1 %; Neutrophils 78 % (36.0-66.0); Total Cells Counted 100
[2017-11-13 15:46] LABS: ANISOCYTOSIS 1+; Basophilic Stippling 2+; Platelet Estimate NORMAL (NORMAL); Polychromasia 1+
[2017-11-13 15:47] LABS: Granulocyte Absolute (ANC) 16.3 (1.4-6.9)
[2017-11-13 15:52] LABS: ALBUMIN 3.2 g/dL (3.5-5.0); ALKALINE PHOSPHATASE 133 U/L (38-126); BLOOD UREA NITROGEN 77 mg/dL (7-17); CHLORIDE 116 mmol/L (98-107); Calcium 8.8 mg/dL (8.4-10.2); Carbon Dioxide 31 mmol/L (22-30); Creatinine 1 0.87 mg/dL (0.52-1.04); Glucose 140 mg/dL (74-106); LIPASE 25 U/L (23-300); Potassium 4.5 mmol/L (3.5-5.1); SGOT/AST 14 U/L (14-36); SGPT/ALT 8 U/L (0-35); Total Protein 6.9 g/dL (6.3-8.2)
[2017-11-13 15:58] LABS: SODIUM 156 mmol/L (137-145)
[2017-11-13] MEDS ORDERED: Zosyn 3.375GM/100 Ml D5W 3.375 GM/100 ML IVPB IV STA (16:30)
[2017-11-13] MEDS ORDERED: Zosyn 3.375GM/100 Ml D5W 3.375 GM/100 ML IVPB IV ONE (16:39)
[2017-11-13] MEDS ORDERED: Zofran 4 MG/2 ML VIAL IV PRN (17:54)
[2017-11-13 18:32] LABS: Appearance SLIGHTLY CLOUDY (CLEAR); Bilirubin NEGATIVE (NEGATIVE); Glucose NEGATIVE (NEGATIVE); Ketones NEGATIVE (NEGATIVE); Leukocyte Esterase 2+ (NEGATIVE); Nitrite POSITIVE (NEGATIVE); Protein,Urine Dip 100 (Negative); Specific Gravity 1.005 (1.005-1.025); Urobilinogen NORMAL mg/dL (0-1)
[2017-11-13 18:33] LABS: Blood 250 Ery/ul (0-5)
[2017-11-13 18:34] LABS: Bacteria MANY /HPF (NEGATIVE)
[2017-11-13] MEDS: Zosyn 3.375GM/100 Ml D5W 3.375 GM/100 ML IVPB IV SCH ×2 (19:02→23:38)
[2017-11-13] MEDS: Sodium Chloride 0.9% 1000 ML 1,000 ML IV SCH (19:02)
[2017-11-13] MEDS ORDERED: GlucaGen 1 MG IM PRN (20:54)
[2017-11-13] MEDS ORDERED: NORCO 7.5/325 MG TAB G-TUBE PRN (20:55)
[2017-11-13] MEDS ORDERED: FEOSOL 325 MG PEG SCH (22:00)
[2017-11-13] MEDS: Neurontin 100 MG G-TUBE SCH (22:41)
[2017-11-13] MEDS: Lopressor 25MG Tab G-TUBE SCH (22:41)
[2017-11-13] MEDS: Zocor 10MG G-TUBE SCH (22:41)
[2017-11-13] MEDS: Sinemet 25/100 MG G-TUBE SCH (22:41)
[2017-11-13] MEDS: TYLENOL 325 MG G-TUBE PRN (23:37)
[2017-11-14 03:34] LABS: ANION GAP 13.5 MEQ/L (5-15); BLOOD UREA NITROGEN 70 mg/dL (7-17); CHLORIDE 118 mmol/L (98-107); Calcium 8.1 mg/dL (8.4-10.2); Carbon Dioxide 28 mmol/L (22-30); Glucose 426 mg/dL (74-106); Potassium 5.6 mmol/L (3.5-5.1)
[2017-11-14] MEDS: TYLENOL 325 MG G-TUBE PRN (03:35)
[2017-11-14 03:38] LABS: SODIUM 154 mmol/L (137-145)
[2017-11-14 04:15] LABS: Granulocyte Absolute (ANC) 19.05 (1.4-6.9); Hematocrit 31.1 % (35-47); Hemoglobin 8.8 gm/dl (12.0-16.0); Mean Corpuscular Hgb Concent. 28.3 g/dl (32-36); Mean Platelet Volume 13.3 fl (6-9.5); Platelet Count 182 K/mm3 (150-450); Red Blood Count 3.08 M/mm3 (4.1-5.4); Red Cell Distribution Width 16.5 % (11.5-14.0); White Blood Count 20.2 K/mm3 (4.0-10.5)
[2017-11-14 04:17] LABS: Mean Corpuscular Hemoglobin 28.5 pg (26-32)
[2017-11-14 04:48] LABS: BAND 11 % (0.0-2.0); Eosinophil 2 % (0.00-3.0); Lymphocytes 1 % (24-44); Metamyelocyte 1 %; Monocyte 3 % (0.0-12.0); Neutrophils 82 % (36.0-66.0); Platelet Estimate NORMAL (NORMAL); Total Cells Counted 100
[2017-11-14 04:49] LABS: Dohle Bodies 2+
[2017-11-14 04:50] LABS: Polychromasia 1+
[2017-11-14 04:51] LABS: Basophilic Stippling 1+
[2017-11-14] MEDS ORDERED: Zosyn 3.375GM/100 Ml D5W 3.375 GM/100 ML IVPB IV ONE (06:04)
[2017-11-14] MEDS ORDERED: Sodium Chloride 0.9% 1000 ML 1,000 ML ONE (06:35)
[2017-11-14] MEDS: Sodium Chloride 0.9% 1000 ML 1,000 ML IV SCH ×2 (06:35→20:00)
[2017-11-14] MEDS: Zosyn 3.375GM/100 Ml D5W 3.375 GM/100 ML IVPB IV SCH ×2 (06:35→11:05)
[2017-11-14] MEDS ORDERED: HYDROCODONE-ACETAMIN 2.5-108/5 ML SOLUTION G-TUBE PRN (08:06)
[2017-11-14] MEDS ORDERED: D50W 50 ml Abboject IV PRN (09:32)
[2017-11-14] MEDS ORDERED: Glutose 15 GM ORAL GEL PO PRN (09:32)
[2017-11-14] MEDS ORDERED: GlucaGen 1 MG IM PRN (09:32)
[2017-11-14] MEDS ORDERED: NON-FORMULARY ITEM (Aspirin [Aspirin] 81 MG) G-TUBE SCH (10:00)
[2017-11-14] MEDS ORDERED: NovoLOG Insulin SQ ONE (10:10)
[2017-11-14] MEDS: BABY ASPIRIN 81 MG CHEW G-TUBE SCH (10:41)
[2017-11-14] MEDS: Sinemet 25/100 MG G-TUBE SCH ×2 (10:41→22:50)
[2017-11-14] MEDS: Lopressor 25MG Tab G-TUBE SCH ×2 (10:42→22:50)
[2017-11-14] MEDS: Ferrous Sulfate (IRON) 220 MG/5 ML G-TUBE SCH ×2 (10:42→14:33)
[2017-11-14] MEDS: QUESTRAN Light 4 GM Packet G-TUBE SCH (10:42)
[2017-11-14] MEDS: Singulair 10 MG G-TUBE SCH (10:42)
[2017-11-14] MEDS: Lantus Insulin SQ SCH ×2 (11:05→22:50)
[2017-11-14] MEDS: ENTACAPONE 200 MG G-TUBE SCH (11:47)
[2017-11-14] MEDS: NovoLOG Insulin SQ PRN ×3 (14:33→22:52)
[2017-11-14 15:22] LABS: Calcium 7.7 mg/dL (8.4-10.2); Creatinine 1 1.12 mg/dL (0.52-1.04); Potassium 4.8 mmol/L (3.5-5.1)
[2017-11-14] MEDS: Levofloxacin 500MG/100ML D5W 500 MG/100 ML BAG IV SCH (15:59)
[2017-11-14] MEDS: Zosyn 3.375 GM Vial 3.375 GM in Sodium Chloride 100ML MINI-BAG PLUS 100 ML IV SCH ×2 (17:32→23:33)
--- NOTE | 2017-11-14 20:41 | XRAY ---
Indication: Lethargy and weakness. Multiple contiguous axial images obtained through the head without contrast. Comparison: August 09, 2016. Again age-appropriate global atrophy, mild bilateral periventricular degenerative micro-ischemia, and cavum septum pellucidum. New moderate size focus of subcortical low attenuation in the right posterior parietal lobe favoring subacute to chronic infarct. No acute intracranial hemorrhage, abnormal extra-axial fluid collection, mass effect, or hydrocephalus. Bony calvarium intact. Visualized paranasal sinuses and mastoid air cells are clear. Impression: 1. 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 No acute hemorrhage or mass effect. 2. Stable global atrophy and degenerative micro-ischemia. Comment: Preliminary interpretation was made by [facility]. No discrepancy. CTDI 68.51
[2017-11-14] MEDS ORDERED: NON-FORMULARY ITEM (Insulin Detemir [Levemir] 20 UNIT) SQ SCH (22:00)
[2017-11-14] MEDS: Lasix 20 MG/2 ML IV ONE (22:17)
[2017-11-14] MEDS ORDERED: Lasix 20 MG/2 ML ONE (22:17)
[2017-11-14] MEDS: Neurontin 100 MG G-TUBE SCH (22:50)
[2017-11-14] MEDS: Zocor 10MG G-TUBE SCH (22:50)
[2017-11-14] MEDS: TYLENOL SUSPENSION 160 MG/5 ML G-TUBE PRN (22:56)
[2017-11-15] MEDS: ENTACAPONE 200 MG G-TUBE SCH ×3 (00:14→22:11)
[2017-11-15] MEDS: Ferrous Sulfate (IRON) 220 MG/5 ML G-TUBE SCH ×4 (00:14→22:15)
[2017-11-15] MEDS: TYLENOL SUSPENSION 160 MG/5 ML G-TUBE PRN ×2 (03:29→22:16)
[2017-11-15] MEDS: Zosyn 3.375 GM Vial 3.375 GM in Sodium Chloride 100ML MINI-BAG PLUS 100 ML IV SCH (05:25)
[2017-11-15] MEDS: NovoLOG Insulin SQ PRN ×4 (09:18→22:30)
[2017-11-15 10:15] LABS: Hematocrit 28.8 % (35-47); Mean Cell Volume 101.8 fl (78-100); Mean Corpuscular Hgb Concent. 27.8 g/dl (32-36); Mean Platelet Volume 12.9 fl (6-9.5); Platelet Count 157 K/mm3 (150-450); Red Blood Count 2.83 M/mm3 (4.1-5.4); Red Cell Distribution Width 16.7 % (11.5-14.0)
[2017-11-15 10:16] LABS: Mean Corpuscular Hemoglobin 28.2 pg (26-32)
[2017-11-15 10:28] LABS: ANION GAP 12.3 MEQ/L (5-15); Calcium 8.1 mg/dL (8.4-10.2); Creatinine 1 1.14 mg/dL (0.52-1.04); Potassium 4.8 mmol/L (3.5-5.1)
[2017-11-15] MEDS: Singulair 10 MG G-TUBE SCH (10:50)
[2017-11-15] MEDS: Lopressor 25MG Tab G-TUBE SCH ×2 (10:51→22:10)
[2017-11-15] MEDS: ENOXAPARIN SODIUM SQ SCH (10:51)
[2017-11-15] MEDS: BABY ASPIRIN 81 MG CHEW G-TUBE SCH (10:51)
[2017-11-15] MEDS: QUESTRAN Light 4 GM Packet G-TUBE SCH (10:51)
[2017-11-15] MEDS: Sinemet 25/100 MG G-TUBE SCH ×2 (10:51→22:11)
[2017-11-15] MEDS: Lantus Insulin SQ SCH ×2 (10:52→22:30)
[2017-11-15] MEDS: Levofloxacin 500MG/100ML D5W 500 MG/100 ML BAG IV SCH (10:59)
[2017-11-15 12:57] LABS: ANISOCYTOSIS 1+; BAND 4 % (0.0-2.0); Basophilic Stippling 1+; Eosinophil 6 % (0.00-3.0); Lymphocytes 5 % (24-44); Monocyte 1 % (0.0-12.0); Neutrophils 84 % (36.0-66.0); Platelet Estimate NORMAL (NORMAL); Polychromasia 1+; Total Cells Counted 100; Toxic Granulation 2+
[2017-11-15] MEDS: Merrem 1 GM 1 G in Sodium Chloride 100ML MINI-BAG PLUS 100 ML IV SCH ×2 (14:05→22:27)
[2017-11-15] MEDS ORDERED: PROVENTIL 2.5 MG/3 ML NEB IH PRN (14:16)
[2017-11-15] MEDS: Sodium Chloride 0.9% 1000 ML 1,000 ML IV SCH (16:18)
--- NOTE | 2017-11-15 18:30 | XRAY ---
Indication: Hypoxemia. Comparison: November 13, 2017. Portable chest unchanged again with right upper lobe airspace disease and right mid to lower lung atelectasis/scarring. Left lung remains clear. Heart is not enlarged. No new cardiopulmonary abnormalities. Comment: Preliminary interpretation was made by [facility]. No discrepancy.
[2017-11-15] MEDS: Zocor 10MG G-TUBE SCH (22:10)
[2017-11-15] MEDS: Neurontin 100 MG G-TUBE SCH (22:10)
[2017-11-15] MEDS: Lasix 20 MG/2 ML IV ONE (22:34)
[2017-11-16 01:39] LABS: 027 TOX PROD POSITIVE (NEGATIVE); TOXIGENIC C. DIFF ORG POSITIVE (NEGATIVE)
[2017-11-16] MEDS: FLAGYL 500 MG IVPB 500 MG/100 ML BAG IV SCH ×4 (01:53→23:32)
[2017-11-16] MEDS: TYLENOL SUSPENSION 160 MG/5 ML G-TUBE PRN ×2 (02:24→21:54)
[2017-11-16] MEDS: Merrem 1 GM 1 G in Sodium Chloride 100ML MINI-BAG PLUS 100 ML IV SCH ×2 (05:39→15:03)
[2017-11-16 05:52] LABS: Hematocrit 24.9 % (35-47); Mean Corpuscular Hemoglobin 28.1 pg (26-32); Mean Corpuscular Hgb Concent. 28.1 g/dl (32-36); Mean Platelet Volume 12.8 fl (6-9.5); Platelet Count 130 K/mm3 (150-450); Red Blood Count 2.49 M/mm3 (4.1-5.4); Red Cell Distribution Width 16.3 % (11.5-14.0); White Blood Count 10.8 K/mm3 (4.0-10.5)
[2017-11-16 06:13] LABS: ALBUMIN 2.3 g/dL (3.5-5.0); ALKALINE PHOSPHATASE 79 U/L (38-126); ANION GAP 6.8 MEQ/L (5-15); BILIRUBIN,TOTAL < 0.10 mg/dL (0.2-1.3); BLOOD UREA NITROGEN 55 mg/dL (7-17); CHLORIDE 120 mmol/L (98-107); Calcium 7.9 mg/dL (8.4-10.2); Carbon Dioxide 29 mmol/L (22-30); Creatinine 1 0.79 mg/dL (0.52-1.04); Glucose 83 mg/dL (74-106); Potassium 4.2 mmol/L (3.5-5.1); SGOT/AST 10 U/L (14-36); Total Protein 5.2 g/dL (6.3-8.2)
[2017-11-16 06:18] LABS: SGPT/ALT 4 U/L (0-35); SODIUM 151 mmol/L (137-145)
[2017-11-16 08:22] LABS: BAND 3 % (0.0-2.0); Basophil 1 % (0.0-1.0); Eosinophil 7 % (0.00-3.0); Lymphocytes 10 % (24-44); Monocyte 2 % (0.0-12.0); Neutrophils 77 % (36.0-66.0); Total Cells Counted 100
[2017-11-16 08:23] LABS: Hypochromia 2+; Platelet Estimate NORMAL (NORMAL)
[2017-11-16 08:24] LABS: Granulocyte Absolute (ANC) 8.7 (1.4-6.9)
[2017-11-16] MEDS: Singulair 10 MG G-TUBE SCH (09:40)
[2017-11-16] MEDS: Levofloxacin 500MG/100ML D5W 500 MG/100 ML BAG IV SCH (09:40)
[2017-11-16] MEDS: Sinemet 25/100 MG G-TUBE SCH ×2 (09:40→21:50)
[2017-11-16] MEDS: ENOXAPARIN SODIUM SQ SCH (09:40)
[2017-11-16] MEDS: QUESTRAN Light 4 GM Packet G-TUBE SCH (09:40)
[2017-11-16] MEDS: Lopressor 25MG Tab G-TUBE SCH ×2 (09:41→21:50)
[2017-11-16] MEDS: Ferrous Sulfate (IRON) 220 MG/5 ML G-TUBE SCH ×2 (09:42→15:00)
[2017-11-16] MEDS: ENTACAPONE 200 MG G-TUBE SCH ×2 (09:42→23:02)
[2017-11-16] MEDS: BABY ASPIRIN 81 MG CHEW G-TUBE SCH (09:42)
[2017-11-16] MEDS: Lantus Insulin SQ SCH ×2 (10:28→23:00)
--- NOTE | 2017-11-16 10:58 | HP ---
THIS REPORT WAS AMENDED ON 11/16/17. HISTORY OF PRESENT ILLNESS: Patient is unable to provide history. No family members are available. Patient is known to me from her stay at [facility]. History has been gathered from review of patient's chart and discussion with nursing staff. Mrs. 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 She is a resident of [facility] and essentially has been in chronic bed bound condition. Our office was contacted by [facility] on 11/12/17 with labs which had revealed hyponatremia. Also, patient was noted to have elevated blood count. I advised patient to be sent to the Emergency Room. However, at the time, the correction did manage to get a hold of patient's instrument person and medications were adjusted and decision to send her to Emergency Room was held. Our office was contacted by correction again yesterday by fax stating that patient is having vomiting. Her G tube was difficult to flush. Was noted to have diminished breath sounds. I advised patient be transferred to Emergency Room. Patient was brought to [facility] Emergency Room where she was noted to have BP of 156/83, heart rate of 103, respiratory rate of 18, temperature 99.8, O2 saturations of 91%. Initial lab work-up was notable for WBC of 19, sodium 156. She was treated with Tylenol 650 mg PO X 1, normal saline at 500 ml, Zofran 4 mg X 1. Subsequently, she was admitted to medical floor. Since admission to medical floor, she was continued on IV fluids, PRN Zofran. Also, she was able to tolerate her food and she was restarted on her feedings. Her course was notable for elevated glucose for which she was restarted on her Levemir in addition to which sliding scale coverage was continued. At the time of this evaluation, the patient is extremely lethargic and difficult to arouse. Appears comfortable. PAST MEDICAL HISTORY: As noted above. Patient also has prior history of transient ischemic attack, chronic obstructive pulmonary disease, atrial fibrillation, and osteoarthritis. PAST SURGICAL HISTORY: Status post percutaneous endoscopic gastrostomy tube placement, history of cataract surgery on the left eye, right hip surgery, left leg vein surgery, right knee surgery. FAMILY HISTORY: Noncontributory to current admission. SOCIAL HISTORY: Patient is a resident of a correction. Is a former smoker. No history of illicit drug use. ALLERGIES: RANITIDINE. CURRENT MEDICATIONS: Were reviewed. REVIEW OF SYSTEMS: Unobtainable. PHYSICAL EXAMINATION: Elderly, frail woman lying comfortably in bed. Not in acute distress. VITAL SIGNS: BP 106/52, heart rate 102, respiratory rate 20, temperature 102.5, temperature maximum of 103.3. HEENT: Pallor present. NECK: No JVD present. CVS: S1 and S2 present. RESPIRATORY: Breath sounds bilaterally diminished. Scattered rhonchi present. ABDOMEN: Soft. Percutaneous endoscopic gastrostomy tube present. NEURO: Patient is extremely lethargic, difficult to arouse. EXTREMITIES: Reveals no edema on bilateral lower extremities. Examination of sacral area was deferred at this time. Patient has dressing on that area. (This is being managed per wound care, please refer to nursing notes/assessments for details of sacral area decubitus ulcer). LABORATORY DATA: Labs from admission were noted. Troponin has been 0.024, 0.025, 0.027, 0.026, and 0.022. Lipase is in normal limits. Lactic acid was 1.0. CBC from today shows WBC of 20.2, Hgb 8.8, Hct 31.1, platelets 182, neutrophils 82, bands 11. BMP shows sodium 154, potassium 5.6, chloride 118, bicarb 28, glucose 589, BUN 70, creatinine 0.9. UA shows 2+ leukocyte esterase, 2-5 RBC, 2-5 WBC, many bacteria. Urine culture shows gram negative, ID sensitivity is pending. Blood cultures X 2 are pending. Chest x-ray shows new right upper lobe air space disease without consolidation or large effusion and chronic obstructive pulmonary disease. ASSESSMENT AND PLAN: 72 y/o woman with impression: 1. HYPERNATREMIA. 2. ASPIRATION PNEUMONITIS. 3. HISTORY OF VOMITING (NOW RESOLVED). 4. URINARY TRACT INFECTION. 5. FEVER LIKELY SECONDARY TO URINARY TRACT INFECTION VS ASPIRATION PNEUMONITIS. 6. LETHARGY. 7. HISTORY OF HYPERTENSION/CORONARY ARTERY DISEASE. 8. HISTORY OF DIABETES MELLITUS. 9. SACRAL DECUBITUS ULCER STAGE IV (CHRONIC). 10. HISTORY OF PARKINSON'S DISEASE. 11. HISTORY OF CHRONIC PAIN (LOW BACK PAIN). 12. HISTORY OF ANXIETY. PLAN: 1. Patient is admitted for further monitoring and management. 2. Continue IV fluids. Continue to follow CBC and electrolytes. 3. Nephrology consultation has been requested. However, nephrology is unable to provide consultation at this time at [facility]. If hypernatremia persists, will likely transfer patient to [place] for nephrology evaluation. 4. Continue broad spectrum IV antibiotics. 5. Patient does continue to receive her Zosyn mixed with D5W. 6. Follow-up cultures. 7. Addition of Levaquin. 8. I advised nurse to discuss with pharmacy that can be changed in view of patients' labile Accu-Cheks. 9. Patient's other medications were restarted. 10. Continue to monitor neurological status. Will obtain baseline CT head. 11. Overall prognosis remains poor (patient is DNR per patient's daughter). I discussed with patient's daughter, Nini ([phone]), on the phone regarding patient's clinical condition, her current available work-up results, current plan of management, and overall guarded prognosis give her multiple comorbidities. I also discussed with her that we have attempted to contact her instrument person and no instrument person is available at [facility] this week and patient may likely need to be transferred to [place] for nephrology evaluation. Patient's daughter states verbalized understanding of discussion. She is in agreement of current treatment plan. She does state that she would prefer patient to be at [facility] if possible. However, I have discussed with daughter that we will continue to monitor her clinically and her lab work-up and will hold off on transfer at this time as per her request. However, if clinical condition or electrolyte abnormalities worsen, we may likely still have to transfer her. Daughter verbalized understanding and is in agreement of treatment plan. Daughter is fully aware of patient's extremely poor prognosis. Plan was discussed with patient's nurse, Renetta.
--- NOTE | 2017-11-16 12:07 | PROG NOTE ---
DATE: 11/15/17 Chart reviewed. Events noted. Patient was noted to have increased shortness of breath last night with O2 desaturations. She was treated with 1 time small dose of Lasix and increasing her supplemental O2. Also, as per rhythm strip left on patient's chart by nursing, patient had 7 beat run of V-tach. At the time of this evaluation, patient is alert and awake. Appears mildly confused. Denies increased shortness of breath. Denies pain. Appears comfortable. VITALS: BP 128/67, heart rate 86, respiratory rate 16, temperature 99.4, O2 saturations of 94% on 4 liters, temperature maximum of 101.3. HEENT: Pallor present. NECK: No JVD present. CVS: S1 and S2 present. RESPIRATORY: Breath sounds bilaterally diminished. Coarse breath sounds. ABDOMEN: Soft. Percutaneous endoscopic gastrostomy tube present. NEURO: Patient is alert and awake. Answers a few simple questions. Appears mildly dysarthric. EXTREMITIES: Reveals no edema on bilateral lower extremities. SACROILIAC: Examination of sacroiliac deferred (patient does have dressing). LABORATORY DATA: Labs from today show CBC with WBC of 17, Hgb of 8, Hct 28.8, platelets 157, neutrophils 84, bands 4. BMP shows sodium 154, potassium 4.8, chloride 120, bicarb 27, glucose 253, BUN 75, creatinine 1.14, magnesium 3.1. Blood cultures from 11/13/17 have shown no growth so far. Urine cultures from 11/13/17 show Proteus and E. coli. Sensitivities of those were reviewed. Head CT from 11/14/17 showed new subacute to chronic right parietal lobe infarct, no acute hemorrhage or mass effect, stable global atrophy, and degenerative microischemia. Medications were reviewed. ASSESSMENT: 72 y/o man/woman with impression: 1. HYPONATREMIA. 2. URINARY TRACT INFECTION (ESCHERICHIA COLI AND PROTEUS). 3. SUBACUTE TO CHRONIC RIGHT PARIETAL LOBE INFARCT. 4. HYPOXEMIA. 5. DIABETES MELLITUS. 6. HISTORY OF HYPERTENSION/CONGESTIVE HEART FAILURE. 7. SACRAL DECUBITUS STAGE IV ULCER. 8. HISTORY OF CHRONIC BACK PAIN. PLAN: 1. Continue cautious IV hydration. 2. Patient's antibiotics have been adjusted. 3. Continue to follow CBC, electrolytes, and cultures. 4. Nephrology consultation is awaited. 5. Will increase Lantus. 6. PT evaluation regarding management of sacral decubitus. Will continue as per prior recommendations from Wound Care. 7. Will obtain NT Pro BNP. 8. Continue supplemental O2. 9. Patient's overall prognosis appears to be extremely poor due to multiple comorbidities as noted. 10. Patient's daughter is aware of the same. Plan was discussed with case management, Jessica. Patient's clinical condition, work-up results, and plan of management were discussed with patient and son. They seem to be in understanding and agreement of the same.
--- NOTE | 2017-11-16 12:52 | PCM.NOTE ---
Date and Time: 11/16/17 1250 Subjective Assessment: patient is very weak, - Review of Systems Constitutional: Weakness Eyes: No Symptoms Ears, Nose, & Throat: No Symptoms Skin: Decubiti Objective Exam General Appearance: mild distress Neurologic Exam: disoriented, confusion Skin Exam: decubitus Eye Exam: EOMI Ears, Nose, Throat Exam: normal ENT inspection, moist mucous membranes Neck Exam: normal inspection Respiratory Exam: diminished breath sounds, rhonchi, wheezing Cardiovascular Exam: tachycardia, capillary refill >3 sec Gastrointestinal/Abdomen Exam: soft OBJECTIVE DATA Vital Signs: Vital Signs - 24 hr Temp Pulse Resp BP Pulse Ox 11/16/17 11:37 98.2 F 76 20 122/62 96 11/16/17 07:04 98.0 F 75 20 128/58 97 11/16/17 06:54 96 11/16/17 04:00 98.5 F 86 10 L 110/56 96 11/16/17 00:00 101.3 F 91 H 18 124/58 95 11/15/17 20:25 94 L 11/15/17 20:23 105 H 16 94 L 11/15/17 20:00 101.8 F 107 H 107 H 148/65 18 L 11/15/17 15:50 99.2 F 82 16 122/62 93 L 11/15/17 15:16 98 11/15/17 15:15 86 16 98 Oxygen-Last 24 hours O2 Percentage 2 Liters = 28% O2 Percentage 2 Liters = 28% O2 Percentage 2 Liters = 28% O2 Percentage 2 Liters = 28% O2 Percentage 2 Liters = 28% O2 Percentage 4 Liters = 36% Pain Assessment - Last Documented Pain Scale Used [facility] Intake and Output: Intake & Output 11/14/17 11/15/17 11/16/17 11/17/17 11:59 11:59 11:59 11:59 Intake Total 765 3790 3804 Output Total 50 1000 1150 Balance 715 2680 3804 Lab Results: Accuchecks Date 11/15/17 Date 11/15/17 Date 11/15/17 Date 11/15/17 Time 18:30 Time 13:00 Accucheck Value: 146 Accucheck Value: 291 Accucheck Value: 230 Accucheck Value: 280 Lab Results-Last 24 Hours 11/15/17 11/15/17 11/15/17 Range/Units 00:00 10:00 10:30 WBC (4.0-10.5) K/mm3 RBC (4.1-5.4) M/mm3 Hgb (12.0-16.0) gm/dl Hct (35-47) % MCV (78-100) fl MCH (26-32) pg MCHC (32-36) g/dl RDW (11.5-14.0) % Plt Count (150-450) K/mm3 MPV (6-9.5) fl Absolute Granulocytes (1.4-6.9) Segmented Neutrophils 84 H (36.0-66.0) % Band Neutrophils 4 H (0.0-2.0) % Lymphocytes (Manual) 5 L (24-44) % Monocytes (Manual) 1 (0.0-12.0) % Eosinophils (Manual) 6 H (0.00-3.0) % Basophils (Manual) (0.0-1.0) % Hypochromia Toxic Granulation 2+ Platelet Estimate NORMAL (NORMAL) RBC Morphology ABNORMAL Polychromasia 1+ Basophilic Stippling 1+ Anisocytosis 1+ Sodium (137-145) mmol/L Potassium (3.5-5.1) mmol/L Chloride (98-107) mmol/L Carbon Dioxide (22-30) mmol/L Anion Gap (5-15) MEQ/L BUN (7-17) mg/dL Creatinine (0.52-1.04) mg/dL Estimated GFR ML/MIN Glucose (74-106) mg/dL Calcium (8.4-10.2) mg/dL Total Bilirubin (0.2-1.3) mg/dL AST (14-36) U/L ALT (0-35) U/L Alkaline Phosphatase (38-126) U/L NT-Pro-B Natriuret Pep 5010 H (0-900) pg/mL Serum Total Protein (6.3-8.2) g/dL Albumin (3.5-5.0) g/dL Stl C. diff Tox B Gene POSITIVE (NEGATIVE) C.difficile 027-NAP1-B1 POSITIVE (NEGATIVE) 11/16/17 11/16/17 Range/Units 05:18 05:18 WBC 10.8 H (4.0-10.5) K/mm3 RBC 2.49 L (4.1-5.4) M/mm3 Hgb 7.0 L (12.0-16.0) gm/dl Hct 24.9 L (35-47) % MCV 100.0 (78-100) fl MCH 28.1 (26-32) pg MCHC 28.1 L (32-36) g/dl RDW 16.3 H (11.5-14.0) % Plt Count 130 L (150-450) K/mm3 MPV 12.8 H (6-9.5) fl Absolute Granulocytes 8.7 H (1.4-6.9) Segmented Neutrophils 77 H (36.0-66.0) % Band Neutrophils 3 H (0.0-2.0) % Lymphocytes (Manual) 10 L (24-44) % Monocytes (Manual) 2 (0.0-12.0) % Eosinophils (Manual) 7 H (0.00-3.0) % Basophils (Manual) 1 (0.0-1.0) % Hypochromia 2+ Toxic Granulation Platelet Estimate NORMAL (NORMAL) RBC Morphology ABNORMAL Polychromasia Basophilic Stippling Anisocytosis Sodium 151 H* (137-145) mmol/L Potassium 4.2 (3.5-5.1) mmol/L Chloride 120 H (98-107) mmol/L Carbon Dioxide 29 (22-30) mmol/L Anion Gap 6.8 (5-15) MEQ/L BUN 55 H (7-17) mg/dL Creatinine 0.79 (0.52-1.04) mg/dL Estimated GFR > 60.0 ML/MIN Glucose 83 (74-106) mg/dL Calcium 7.9 L (8.4-10.2) mg/dL Total Bilirubin < 0.10 L (0.2-1.3) mg/dL AST 10 L (14-36) U/L ALT 4 (0-35) U/L Alkaline Phosphatase 79 (38-126) U/L NT-Pro-B Natriuret Pep (0-900) pg/mL Serum Total Protein 5.2 L (6.3-8.2) g/dL Albumin 2.3 L (3.5-5.0) g/dL Stl C. diff Tox B Gene (NEGATIVE) C.difficile 027-NAP1-B1 (NEGATIVE) Radiology Exams: Radiology Procedures Category Date Time Status CHEST 1 VIEW (PORTABLE) Routine Exams 11/15/17 14:36 Completed HEAD WITHOUT CONTRAST [CT] Routine Exams 11/14/17 14:55 Completed Assessment/Plan (1) C. difficile diarrhea Current Visit: Yes Status: Acute Onset Date: ~10/02/17 Code(s): A04.7 - ENTEROCOLITIS DUE TO CLOSTRIDIUM DIFFICILE * DO NOT USE * (2) Hypernatremia Current Visit: Yes Status: Acute Code(s): E87.0 - HYPEROSMOLALITY AND HYPERNATREMIA (3) Type 2 diabetes mellitus Current Visit: No Status: Chronic Qualifiers: Chronic kidney disease stage: stage 3 (moderate)
[2017-11-16] MEDS: ROCEPHIN 1 Gm-D5w 50 ml Bag** 1 G/50 ML IVPB IV SCH (18:22)
[2017-11-16] MEDS: NovoLOG Insulin SQ PRN (18:23)
[2017-11-16] MEDS: AlbuRx 25% 50ML VIAL*** 50 ML IV SCH ×2 (19:32→21:55)
[2017-11-16] MEDS: Acidophilus TABLET PO SCH (21:49)
[2017-11-16] MEDS: Zocor 10MG G-TUBE SCH (21:49)
[2017-11-16] MEDS: Neurontin 100 MG G-TUBE SCH (21:49)
[2017-11-17] MEDS: FLAGYL 500 MG IVPB 500 MG/100 ML BAG IV SCH ×2 (00:03→06:52)
[2017-11-17] MEDS: Merrem 1 GM 1 G in Sodium Chloride 100ML MINI-BAG PLUS 100 ML IV SCH ×2 (00:34→07:58)
[2017-11-17 05:56] LABS: ALBUMIN 2.6 g/dL (3.5-5.0); ALKALINE PHOSPHATASE 86 U/L (38-126); ANION GAP 9.2 MEQ/L (5-15); BILIRUBIN,TOTAL < 0.10 mg/dL (0.2-1.3); BLOOD UREA NITROGEN 33 mg/dL (7-17); CHLORIDE 115 mmol/L (98-107); Calcium 7.7 mg/dL (8.4-10.2); Carbon Dioxide 27 mmol/L (22-30); Creatinine 1 0.58 mg/dL (0.52-1.04); Glucose 244 mg/dL (74-106); Potassium 4.8 mmol/L (3.5-5.1); SGOT/AST 8 U/L (14-36); SGPT/ALT 7 U/L (0-35); SODIUM 146 mmol/L (137-145); Total Protein 5.4 g/dL (6.3-8.2)
[2017-11-17] MEDS: ENOXAPARIN SODIUM SQ SCH (08:55)
[2017-11-17] MEDS: ROCEPHIN 1 Gm-D5w 50 ml Bag** 1 G/50 ML IVPB IV SCH (08:55)
[2017-11-17] MEDS: Lantus Insulin SQ SCH (08:56)
[2017-11-17] MEDS: NovoLOG Insulin SQ PRN ×2 (09:00→11:10)
[2017-11-17] MEDS: Acidophilus TABLET PO SCH (09:01)
[2017-11-17] MEDS: Sinemet 25/100 MG G-TUBE SCH (09:01)
[2017-11-17] MEDS: BABY ASPIRIN 81 MG CHEW G-TUBE SCH (09:02)
[2017-11-17] MEDS: Lopressor 25MG Tab G-TUBE SCH (09:02)
[2017-11-17] MEDS: Singulair 10 MG G-TUBE SCH (09:03)
[2017-11-17] MEDS: ENTACAPONE 200 MG G-TUBE SCH (09:03)
--- NOTE | 2017-11-17 09:11 | CONS ---
CONSULT DATE: 11/16/17 REASON FOR CONSULTATION: 1. Hypernatremia, 2. Fluid electrolyte management. HISTORY OF PRESENT ILLNESS: Ms. Shazia Grossman is a 72 y/o lady who is known to renal service. Patient is unable to provide any history. No family members were available at bedside. The patient lives at extended care facility. Has a percutaneous endoscopic gastrostomy tube. Patient follows up with Dr. Lauren for chronic kidney disease stage II and related issues. Patient also has history of underlying multiple comorbidities. She has tendency to run high sodium level and off and on fluid through percutaneous endoscopic gastrostomy tube has been increased as needed. The patient was having low-grade fever. Routine evaluation at [facility] showed she had high sodium levels. Patient was sent to Emergency Room. Patient was also fatigued, drowsy, was having diarrhea. She was admitted for further management. Sodium levels were noted to be 154. C. diff toxin was positive. Patient was started on fluids. Renal consultation was called because of above mentioned problems. REVIEW OF SYSTEMS: Unfortunately, because of underlying condition of the patient, Review of Systems could not be ascertained with clarity. Basically, was having diarrhea and overall change in her mental status from baseline. No bleeding from any of the orifices were viewed. Drummond catheter was in place. Urine was clear. She was also having low-grade fever. Urine culture was positive for E. coli. Sensitivities were noted. All systems were attempted to be reviewed. PAST MEDICAL HISTORY: Transient ischemic attack, chronic obstructive pulmonary disease, atrial fibrillation, osteoarthritis, chronic kidney disease stage II, tendency for hypernatremia, and diabetes mellitus type 2. PAST SURGICAL HISTORY: Percutaneous endoscopic gastrostomy placement, history of cataract surgery in left eye, right hip surgery, left leg vein surgery, right knee surgery. ALLERGIES: RANITIDINE. CURRENT MEDICATIONS: Current medications were reviewed and hospital medications were reviewed. Patient was on aspirin, carbidopa-levodopa, cholestyramine, Ergocalciferol, ferrous sulfate, metoprolol, simvastatin, insulin. FAMILY HISTORY: No reported history of renal problems in the family. SOCIAL HISTORY: She is a resident of an extended care facility. Former smoker. No alcohol abuse. No drug abuse. PHYSICAL EXAMINATION: Reveals ill-looking lady, lethargic, in no respiratory distress. Temperature was 98.5. No fever today, but temperature maximum was 101.8 yesterday. Pulse rate was 86/minute, respiratory rate was 12/minute, BP was 110/56. HEENT: Normocephalic. Pale conjunctivae. Nonicteric sclerae. NECK: Supple. No obvious JVD. LYMPHATIC: CHEST: Decreased basilar breath sounds. Some moderate air entry. Poor effort. CVS: S1 and S2 normal. ABDOMEN: Soft, nontender. No organomegaly. EXTREMITIES: No cyanosis or clubbing. Edema over the upper extremities noted. SKIN: No diffuse rash. Sclerochymotic spots noted. Skin turgor is fair. MUSCULOSKELETAL: Chronic osteoarthritic changes noted. NEURO: Patient is awake, but could not give much of a history or answer questions. LABORATORY DATA: Labs were reviewed. Sodium levels were down to 151. Potassium was 4.2. The NT Pro BNP was 5000. Renal function was stable. C. diff toxin was positive in stool. ASSESSMENT: 1. HYPERNATREMIA BECAUSE OF DECREASE IN TRIVASCULAR VOLUME/FREE FLUID DEFICIENCY. Patient may also have low albumin resulting in extravasation/third spacing. I agree with free water at 150 ml q 3 h. We will also discontinue NS. Change to 1/2 NS. Continue to monitor input/output. I doubt any diabetes insipidus. 2. CHRONIC KIDNEY DISEASE STAGE II. Renal function remains stable. No evidence of acute kidney injury. 3. STOOL CLOSTRIDIUM DIFFICILE COLITIS. Continue Flagyl. Start Florastor. Given diarrhea, we will hold ferrous sulfate. Also, hold cholestyramine because it has shown to cause problems in clostridium difficile as it binds to the toxin and does not let it go out. 4. EDEMA MOST LIKELY BECAUSE OF EXTRAVASATION. Gave a dose of albumin. Once diarrhea is stable, we can diurese and get rid of excess total body water at that point. 5. URINARY TRACT INFECTION. Avoid quinolones. Would recommend ceftriaxone, but final management as per primary team. 6. ANEMIA. Monitor iron profile. Hold PO iron. Consider IV iron when completely afebrile for 48 hours. Assess the need for support in supplementation. 7. DIABETES MELLITUS TYPE 2. Management as per primary team. 8. PARKINSON'S DISEASE. Okay to continue carbidopa-levodopa. Adjust and monitor magnesium level. Closely follow-up the patient.
[2017-11-17 11:18] VITALS: BP 126/51; PULSE 92; O2SAT 96
[2017-11-17 12:23] LABS: Hematocrit 26.6 % (35-47); Hemoglobin 7.6 gm/dl (12.0-16.0); Mean Corpuscular Hgb Concent. 28.6 g/dl (32-36); Platelet Count 144 K/mm3 (150-450); Red Blood Count 2.66 M/mm3 (4.1-5.4); Red Cell Distribution Width 16.1 % (11.5-14.0); White Blood Count 12.2 K/mm3 (4.0-10.5)
[2017-11-17 12:34] LABS: Mean Corpuscular Hemoglobin 28.5 pg (26-32)
--- NOTE | 2017-11-17 13:10 | PCM.DS ---
Discharge Summary Date of Admission: 11/14/17 03:58 Admitting Physician: CUAUHTEMOC DE LA GARZA Consults: Consults on Case 11/14/17 04:01 Consult Nephrology ROUTINE Primary Care Provider: CUAUHTEMOC DE LA GARZA Allergies Allergies ranitidine Allergy (Verified 11/13/17 18:24) Hospital Summary - Hospital Course Hospital Course: Chief Complaint Diagnosis HYPERNATREMIA, PULMONARY INFILTRATE Allergies Allergy/AdvReac Type Severity Reaction Status Date / Time ranitidine Allergy Verified 11/13/17 18:24 Vital Signs (Last 24 hours) Temp Pulse Resp BP Pulse Ox 11/17/17 11:17 98.2 F 92 H 18 126/51 96 11/17/17 07:21 98 11/17/17 07:17 98.4 F 86 20 118/60 96 11/17/17 04:00 98.3 F 97 H 22 121/56 97 11/17/17 00:00 97.7 F 85 22 117/53 96 11/16/17 20:00 98.7 F 95 H 18 141/63 96 11/16/17 19:04 94 H 20 97 11/16/17 16:00 98.2 F 74 20 120/60 94 L Home Medications Medication Instructions Recorded Confirmed Last Taken Type Ergocalciferol (Vitamin D2) 50,000 unit G-TUBE Q7D 11/13/17 11/13/17 11/12/17 History [Vitamin D2] Hydrocodone Bit/Acetaminophen 1 ea G-TUBE Q4HPRN PRN 11/13/17 11/13/17 Unknown History [Caret 7.5-325 Tablet] Cephalexin 250 mg/5 ml Susp 250 mg G-TUBE TID 5 Days #1 bottle 11/17/17 Unknown Rx [Keflex 250 mg/5 ml Susp] Vancomycin HCl [Vancomycin 25Mg/ml 125 mg G-TUBE QID 7 Days #1 bottle 11/17/17 Unknown Rx Oral Solution Compound Kit] Current Medications Generic Name Dose Route Start Last Admin Trade Name Freq PRN Reason Stop Dose Admin Acetaminophen 650 mg 11/14/17 08:09 11/16/17 21:54 Tylenol Suspension 160 Mg/5 Ml G-TUBE 12/14/17 08:08 650 mg Q4H PRN PRN Administration PAIN AND/OR FEVER Hydrocodone Bitart/Acetaminophen 15 ml 11/14/17 08:06 11/17/17 09:01 Hydrocodone-Acetamin 2.5-108/5 Ml Solution G-TUBE 11/19/17 08:05 15 ml Q6H PRN PRN Administration PAIN Albuterol Sulfate 2.5 mg 11/15/17 14:16 Proventil 2.5 Mg/3 Ml Neb IH 12/15/17 14:15 Q6H PRN PRN SHORTNESS OF BREATH/WHEEZING Aspirin 81 mg 11/14/17 10:00 11/17/17 09:02 Baby Aspirin 81 Mg Chew G-TUBE 12/14/17 09:59 81 mg DAILY ABIOLA Administration Carbidopa/Levodopa 1 tab 11/13/17 22:00 11/17/17 09:01 Sinemet 25/100 Mg G-TUBE 12/13/17 21:59 1 tab BID ABIOLA Administration Dextrose 25 ml 11/14/17 09:32 D50w 50 Ml Abboject IV 12/14/17 09:31 UD PRN Enoxaparin Sodium 40 mg 11/15/17 10:00 11/17/17 08:55 Enoxaparin Sodium SQ 12/15/17 09:59 40 mg DAILY ABIOLA Administration Ergocalciferol 50,000 unit 11/19/17 10:00 Vitamin D2 G-TUBE 12/19/17 09:59 Q7D ABIOLA Gabapentin 100 mg 11/13/17 22:00 11/16/17 21:49 Neurontin 100 Mg G-TUBE 12/13/17 21:59 100 mg HS ABIOLA Administration Glucagon 1 mg 11/13/17 20:54 Glucagen 1 Mg IM 12/13/17 20:53 PRN PRN HYPOGLYCEMIA Glucose 15 gm 11/14/17 09:32 11/16/17 09:40 Glutose 15 Gm Oral Gel PO 12/14/17 09:31 15 gm UD PRN Administration Meropenem 1 g/ Sodium Chloride 100 mls @ 200 mls/hr 11/15/17 14:00 11/17/17 07:58 IV 12/15/17 13:59 200 mls/hr Q8HT ABIOLA Administration Metronidazole 500 mg in 100 mls @ 200 mls/hr 11/16/17 02:00 11/17/17 06:52 Flagyl 500 Mg Ivpb IV 12/16/17 01:59 200 mls/hr Q8HT ABIOLA Administration Sodium Chloride 1,000 mls @ 50 mls/hr 11/16/17 16:30 11/16/17 17:10 Sodium Chloride 0.45% 1000 Ml IV 12/16/17 16:29 50 mls/hr .Q20H ABIOLA Administration Ceftriaxone Sodium/Dextrose 1 g in 50 mls @ 100 mls/hr 11/16/17 18:00 08:55 Rocephin 1 Gm-D5w 50 Ml Bag IV 12/16/17 17:59 100 mls/hr DAILY ABIOLA Administration Insulin Aspart 0 unit 11/13/17 20:56 11/17/17 11:10 Novolog Insulin SQ 12/13/17 20:55 9 unit UD PRN Administration HYPERGLYCEMIA Insulin Glargine 23 unit 11/15/17 14:16 11/17/17 08:56 Lantus Insulin SQ 12/14/17 10:59 23 unit BID ABIOLA Administration Lactobacillus Acidophilus 1 tab 11/16/17 22:00 11/17/17 09:01 Acidophilus Tablet PO 12/16/17 21:59 1 tab BID ABIOLA Administration Metoprolol Tartrate 25 mg 11/13/17 22:00 11/17/17 09:02 Lopressor 25mg Tab G-TUBE 12/13/17 21:59 25 mg BID ABIOLA Administration Montelukast Sodium 10 mg 11/14/17 10:00 11/17/17 09:03 Singulair 10 Mg G-TUBE 12/14/17 09:59 10 mg DAILY ABIOLA Administration Non-Formulary Drug 1 200 mg 11/14/17 11:00 11/17/17 09:03 - (Entacapone 200 G-TUBE 12/14/17 10:59 200 mg Mg [Comtan 200 Mg BID ABIOLA Administration ] 200 Mg) Ondansetron HCl 4 mg 11/13/17 17:54 Zofran 4 Mg/2 Ml Vial IV 12/13/17 17:53 Q6H PRN PRN NAUSEA/VOMITING Simvastatin 10 mg 11/13/17 22:00 11/16/17 21:49 Zocor 10mg G-TUBE 12/13/17 21:59 10 mg HS ABIOLA Administration Discontinued Medications Generic Name Dose Route Start Last Admin Trade Name Freq PRN Reason Stop Dose Admin Acetaminophen 650 mg 11/13/17 14:39 11/13/17 14:57 Tylenol 325 Mg PO 11/13/17 14:40 650 mg STAT ONE Administration Acetaminophen Confirm 11/13/17 14:49 Tylenol 325 Mg Administered 11/13/17 14:50 Dose 650 mg .ROUTE .STK-MED ONE Acetaminophen 650 mg 11/13/17 20:46 11/14/17 03:35 Tylenol 325 Mg G-TUBE 12/13/17 20:45 650 mg Q4H PRN PRN Administration PAIN AND/OR FEVER Hydrocodone Bitart/Acetaminophen 1 tab 11/13/17 20:55 Caret 7.5/325 Mg Tab G-TUBE 11/18/17 20:54 Q6H PRN PRN PAIN Cholestyramine Resin 4 gm 11/14/17 10:00 11/16/17 09:40 Questran Light 4 Gm Packet G-TUBE 12/14/17 09:59 4 gm DAILY ABIOLA Administration Ferrous Sulfate 325 mg 11/13/17 22:00 11/13/17 22:41 Feosol 325 Mg PEG 12/13/17 21:59 325 mg TID ABIOLA Administration Ferrous Sulfate 330 mg 11/14/17 10:00 11/16/17 15:00 Ferrous Sulfate (Iron) 220 Mg/5 Ml G-TUBE 12/14/17 09:59 330 mg TID ABIOLA Administration Furosemide 20 mg 11/15/17 22:12 11/15/17 22:34 Lasix 20 Mg/2 Ml IV 11/15/17 22:13 Not Given ONCE ONE Furosemide Confirm 11/14/17 22:17 Lasix 20 Mg/2 Ml Administered 11/14/17 22:18 Dose 20 mg .ROUTE .STK-MED ONE Sodium Chloride 500 mls @ 999 mls/hr 11/13/17 14:34 11/13/17 15:45 Sodium Chloride 0.9% 1000 Ml IV 11/13/17 15:04 Infused .Q31M STA Infusion Sodium Chloride Confirm 11/13/17 14:49 Sodium Chloride 0.9% 1000 Ml Administered 11/13/17 14:50 Dose 1,000 mls @ ud .ROUTE .STK-MED ONE Piperacillin Sod/Tazobactam Sod 3.375 gm in 100 mls @ 200 mls/hr 11/13/17 16: 30 11/13/17 16:43 Zosyn 3.375gm/100 Ml D5w IV 11/13/17 16:59 200 mls/hr STAT STA 200 mls/hr Administration Piperacillin Sod/Tazobactam Sod Confirm 11/13/17 16:39 Zosyn 3.375gm/100 Ml D5w Administered 11/13/17 16:40 Dose 3.375 gm in 100 mls @ ud IV .STK-MED ONE Piperacillin Sod/Tazobactam Sod 3.375 gm in 100 mls @ 200 mls/hr 11/13/17 18: 00 11/14/17 11:05 Zosyn 3.375gm/100 Ml D5w IV 12/13/17 17:59 200 mls/hr Q6HT ABIOLA Administration Sodium Chloride 1,000 mls @ 100 mls/hr 11/13/17 17:54 11/15/17 16:18 Sodium Chloride 0.9% 1000 Ml IV 12/13/17 17:53 100 mls/hr .Q10H ABIOLA Administration Piperacillin Sod/Tazobactam Sod Confirm 11/14/17 06:04 Zosyn 3.375gm/100 Ml D5w Administered 11/14/17 06:05 Dose 3.375 gm in 100 mls @ ud IV .STK-MED ONE Sodium Chloride Confirm 11/14/17 06:35 Sodium Chloride 0.9% 1000 Ml Administered 11/14/17 06:36 Dose 1,000 mls @ ud .ROUTE .STK-MED ONE Piperacillin Sod/Tazobactam 100 mls @ 200 mls/hr 11/14/17 18:00 11/15/17 05: 25 Sod 3.375 gm/ Sodium Chloride IV 12/14/17 17:59 200 mls/hr Q6HT ABIOLA Administration Levofloxacin/Dextrose 500 mg in 100 mls @ 100 mls/hr 11/14/17 16:00 11/16/17 09:40 Levofloxacin 500mg/100ml D5w IV 12/14/17 15:59 100 mls/hr Q24H10 ABIOLA Administration Albumin Human 50 mls @ 50 mls/hr 11/16/17 18:00 11/16/17 21:55 Alburx 25% 50ml Vial IV 11/16/17 19:59 50 mls/hr Q1H ABIOLA Administration Insulin Aspart 7.5 unit 11/14/17 10:10 11/14/17 10:42 Novolog Insulin SQ 11/14/17 10:11 7.5 unit ONCE ONE Administration Insulin Glargine 20 unit 11/14/17 11:00 11/15/17 10:52 Lantus Insulin SQ 12/14/17 10:59 20 unit BID ABIOLA Administration Ondansetron HCl 4 mg 11/13/17 14:34 11/13/17 14:58 Zofran 4 Mg/2 Ml Vial IV 11/13/17 14:35 4 mg STAT ONE Administration Ondansetron HCl Confirm 11/13/17 14:49 Zofran 4 Mg/2 Ml Vial Administered 11/13/17 14:50 Dose 4 mg .ROUTE .STK-MED ONE Intake & Output (Last 24 hours) 11/15/17 11/16/17 11/17/17 11/18/17 11:59 11:59 11:59 11:59 Intake Total 3790 3804 3073 120 Output Total 1000 1150 950 650 Balance 2790 2654 2123 -530 Weight 60.3 kg Laboratory Results (Last 24 hours) 11/17/17 11/17/17 05:23 05:23 WBC 12.2 H RBC 2.66 L Hgb 7.6 L Hct 26.6 L MCV 100.0 MCH 28.5 MCHC 28.6 L RDW 16.1 H Plt Count 144 L MPV 14.0 H Sodium 146 H Potassium 4.8 Chloride 115 H Carbon Dioxide 27 Anion Gap 9.2 BUN 33 H Creatinine 0.58 Estimated GFR > 60.0 Glucose 244 H Calcium 7.7 L Magnesium 2.9 H Total Bilirubin < 0.10 L AST 8 L ALT 7 Alkaline Phosphatase 86 Serum Total Protein 5.4 L Albumin 2.6 L Orders (Last 24 hours) Category Date Time Status CBC Stat Lab 11/17/17 05:23 Completed CMP AM.LAB Lab 11/17/17 05:23 Completed MAG [MAGNESIUM] AM.LAB Lab 11/17/17 05:23 Completed Albumin Human 25% [AlbuRx 25% 50ML VIAL] 50 ml Med 11/16/17 18:00 Discontinued IV Q1H Ceftriaxone 1 GM/50 ML PREMIX* [ROCEPHIN 1 Gm-D5w 50 ml Med 11/16/17 18:00 Active Bag] 1 g in 50 ml IV DAILY Ergocalciferol (Vitamin D2) [Vitamin D2] Med 11/19/17 10:00 Active 50,000 unit G-TUBE Q7D Lactobacillus Acidophilus [Acidophilus TABLET] Med 11/16/17 22:00 Active 1 tab PO BID NaCl 0.45% 1000 ml [Sodium Chloride 0.45% 1000 ML] 1, Med 11/16/17 16:30 Active 000 ml IV 50 mls/hr - Vitals & Intake/Output Vital Signs: Vital Signs Temperature 98.2 F 11/17/17 11:17 Pulse Rate 92 H 11/17/17 11:17 Respiratory Rate 18 11/17/17 11:17 Blood Pressure 126/51 11/17/17 11:17 O2 Sat by Pulse Oximetry 96 11/17/17 11:17 Oxygen-Last Documented O2 Percentage 2 Liters = 28% Intake & Output: Intake & Output 11/15/17 11/16/17 11/17/17 11/18/17 11:59 11:59 11:59 11:59 Intake Total 3790 3804 3073 120 Output Total 1000 1150 950 650 Balance 2790 2654 2123 -530 Weight 60.3 kg - Lab Result Diagrams: 11/17/17 05:23 11/17/17 05:23 Lab Results-Last 24 Hrs: Accuchecks Date 11/17/17 Date 11/17/17 Date 11/16/17 Date 11/16/17 Time 11:09 Time 09:25 Time 22:47 Time 13:00 Accucheck Value: 303 Accucheck Value: 288 Accucheck Value: 204 Accucheck Value: 189 Lab Results-Last 24 Hours 11/17/17 11/17/17 Range/Units 05:23 05:23 WBC 12.2 H (4.0-10.5) K/mm3 RBC 2.66 L (4.1-5.4) M/mm3 Hgb 7.6 L (12.0-16.0) gm/dl Hct 26.6 L (35-47) % MCV 100.0 (78-100) fl MCH 28.5 (26-32) pg MCHC 28.6 L (32-36) g/dl RDW 16.1 H (11.5-14.0) % Plt Count 144 L (150-450) K/mm3 MPV 14.0 H (6-9.5) fl Sodium 146 H (137-145) mmol/L Potassium 4.8 (3.5-5.1) mmol/L Chloride 115 H (98-107) mmol/L Carbon Dioxide 27 (22-30) mmol/L Anion Gap 9.2 (5-15) MEQ/L BUN 33 H (7-17) mg/dL Creatinine 0.58 (0.52-1.04) mg/dL Estimated GFR > 60.0 ML/MIN Glucose 244 H (74-106) mg/dL Calcium 7.7 L (8.4-10.2) mg/dL Magnesium 2.9 H (1.6-2.3) mg/dL Total Bilirubin < 0.10 L (0.2-1.3) mg/dL AST 8 L (14-36) U/L ALT 7 (0-35) U/L Alkaline Phosphatase 86 (38-126) U/L Serum Total Protein 5.4 L (6.3-8.2) g/dL Albumin 2.6 L (3.5-5.0) g/dL Micro Results-Entire Visit: Accuchecks Date 11/17/17 Date 11/17/17 Date 11/16/17 Date 11/16/17 Time 11:09 Time 09:25 Time 22:47 Time 13:00 Accucheck Value: 303 Accucheck Value: 288 Accucheck Value: 204 Accucheck Value: 189 - Radiology Exams Ordered Rad Exams-Entire Visit: Radiology Procedures Category Date Time Status CHEST 1 VIEW (PORTABLE) Routine Exams 11/15/17 14:36 Completed - Procedures and Test Procedures and Tests throughout Hospitalization: Therapy Orders & Screens 11/15/17 14:13 PT Eval & Treat ( Order) ROUTINE 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/ wound care/ pl assesss & ct wound care Diagnosis: HYPERNATREMIA, PULMONARY INFILTRATE 11/15/17 15:19 Respiratory Nebulizer PRN Comment: Diagnosis: HYPERNATREMIA, PULMONARY INFILTRATE Discharge Exam General Appearance: mild distress, alert Neurologic Exam: alert, No motor deficits Skin Exam: normal color, warm, dry Eye Exam: PERRL, EOMI, eyes nml inspection Ears, Nose, Throat Exam: normal ENT inspection, moist mucous membranes Neck Exam: normal inspection, supple Respiratory Exam: normal breath sounds, diminished breath sounds Cardiovascular Exam: regular rate/rhythm, normal heart sounds Gastrointestinal/Abdomen Exam: soft, No tenderness, No mass Extremity Exam: normal inspection, normal range of motion Back Exam: normal inspection, No CVA tenderness, No vertebral tenderness Pelvic Exam: deferred Rectal Exam: deferred Final Diagnosis/Problem List - Final Discharge Diagnosis/Problem (1) C. difficile diarrhea Current Visit: Yes Status: Acute Priority: High Onset Date: ~11/14/17 Assessment & Plan: Chief Complaint Diagnosis HYPERNATREMIA, PULMONARY INFILTRATE Allergies Allergy/AdvReac Type Severity Reaction Status Date / Time ranitidine Allergy Verified 11/13/17 18:24 Vital Signs (Last 24 hours) Temp Pulse Resp BP Pulse Ox 11/17/17 11:17 98.2 F 92 H 18 126/51 96 11/17/17 07:21 98 11/17/17 07:17 98.4 F 86 20 118/60 96 11/17/17 04:00 98.3 F 97 H 22 121/56 97 11/17/17 00:00 97.7 F 85 22 117/53 96 11/16/17 20:00 98.7 F 95 H 18 141/63 96 11/16/17 19:04 94 H 20 97 11/16/17 16:00 98.2 F 74 20 120/60 94 L Home Medications Medication Instructions Recorded Confirmed Last Taken Type Ergocalciferol (Vitamin D2) 50,000 unit G-TUBE Q7D 11/13/17 11/13/17 11/12/17 History [Vitamin D2] Hydrocodone Bit/Acetaminophen 1 ea G-TUBE Q4HPRN PRN 11/13/17 11/13/17 Unknown History [Caret 7.5-325 Tablet] Cephalexin 250 mg/5 ml Susp 250 mg G-TUBE TID 5 Days #1 bottle 11/17/17 Unknown Rx [Keflex 250 mg/5 ml Susp] Vancomycin HCl [Vancomycin 25Mg/ml 125 mg G-TUBE QID 7 Days #1 bottle 11/17/17 Unknown Rx Oral Solution Compound Kit] Current Medications Generic Name Dose Route Start Last Admin Trade Name Freq PRN Reason Stop Dose Admin Acetaminophen 650 mg 11/14/17 08:09 11/16/17 21:54 Tylenol Suspension 160 Mg/5 Ml G-TUBE 12/14/17 08:08 650 mg Q4H PRN PRN Administration PAIN AND/OR FEVER Hydrocodone Bitart/Acetaminophen 15 ml 11/14/17 08:06 11/17/17 09:01 Hydrocodone-Acetamin 2.5-108/5 Ml Solution G-TUBE 11/19/17 08:05 15 ml Q6H PRN PRN Administration PAIN Albuterol Sulfate 2.5 mg 11/15/17 14:16 Proventil 2.5 Mg/3 Ml Neb IH 12/15/17 14:15 Q6H PRN PRN SHORTNESS OF BREATH/WHEEZING Aspirin 81 mg 11/14/17 10:00 11/17/17 09:02 Baby Aspirin 81 Mg Chew G-TUBE 12/14/17 09:59 81 mg DAILY ABIOLA Administration Carbidopa/Levodopa 1 tab 11/13/17 22:00 11/17/17 09:01 Sinemet 25/100 Mg G-TUBE 12/13/17 21:59 1 tab BID ABIOLA Administration Dextrose 25 ml 11/14/17 09:32 D50w 50 Ml Abboject IV 12/14/17 09:31 UD PRN Enoxaparin Sodium 40 mg 11/15/17 10:00 11/17/17 08:55 Enoxaparin Sodium SQ 12/15/17 09:59 40 mg DAILY ABIOLA Administration Ergocalciferol 50,000 unit 11/19/17 10:00 Vitamin D2 G-TUBE 12/19/17 09:59 Q7D ABIOLA Gabapentin 100 mg 11/13/17 22:00 11/16/17 21:49 Neurontin 100 Mg G-TUBE 12/13/17 21:59 100 mg HS ABIOLA Administration Glucagon 1 mg 11/13/17 20:54 Glucagen 1 Mg IM 12/13/17 20:53 PRN PRN HYPOGLYCEMIA Glucose 15 gm 11/14/17 09:32 11/16/17 09:40 Glutose 15 Gm Oral Gel PO 12/14/17 09:31 15 gm UD PRN Administration Meropenem 1 g/ Sodium Chloride 100 mls @ 200 mls/hr 11/15/17 14:00 11/17/17 07:58 IV 12/15/17 13:59 200 mls/hr Q8HT ABIOLA Administration Metronidazole 500 mg in 100 mls @ 200 mls/hr 11/16/17 02:00 11/17/17 06:52 Flagyl 500 Mg Ivpb IV 12/16/17 01:59 200 mls/hr Q8HT ABIOLA Administration Sodium Chloride 1,000 mls @ 50 mls/hr 11/16/17 16:30 11/16/17 17:10 Sodium Chloride 0.45% 1000 Ml IV 12/16/17 16:29 50 mls/hr .Q20H ABIOLA Administration Ceftriaxone Sodium/Dextrose 1 g in 50 mls @ 100 mls/hr 11/16/17 18:00 08:55 Rocephin 1 Gm-D5w 50 Ml Bag IV 12/16/17 17:59 100 mls/hr DAILY ABIOLA Administration Insulin Aspart 0 unit 11/13/17 20:56 11/17/17 11:10 Novolog Insulin SQ 12/13/17 20:55 9 unit UD PRN Administration HYPERGLYCEMIA Insulin Glargine 23 unit 11/15/17 14:16 11/17/17 08:56 Lantus Insulin SQ 12/14/17 10:59 23 unit BID ABIOLA Administration Lactobacillus Acidophilus 1 tab 11/16/17 22:00 11/17/17 09:01 Acidophilus Tablet PO 12/16/17 21:59 1 tab BID ABIOLA Administration Metoprolol Tartrate 25 mg 11/13/17 22:00 11/17/17 09:02 Lopressor 25mg Tab G-TUBE 12/13/17 21:59 25 mg BID ABIOLA Administration Montelukast Sodium 10 mg 11/14/17 10:00 11/17/17 09:03 Singulair 10 Mg G-TUBE 12/14/17 09:59 10 mg DAILY ABIOLA Administration Non-Formulary Drug 1 200 mg 11/14/17 11:00 11/17/17 09:03 - (Entacapone 200 G-TUBE 12/14/17 10:59 200 mg Mg [Comtan 200 Mg BID ABIOLA Administration ] 200 Mg) Ondansetron HCl 4 mg 11/13/17 17:54 Zofran 4 Mg/2 Ml Vial IV 12/13/17 17:53 Q6H PRN PRN NAUSEA/VOMITING Simvastatin 10 mg 11/13/17 22:00 11/16/17 21:49 Zocor 10mg G-TUBE 12/13/17 21:59 10 mg HS ABIOLA Administration Discontinued Medications Generic Name Dose Route Start Last Admin Trade Name Freq PRN Reason Stop Dose Admin Acetaminophen 650 mg 11/13/17 14:39 11/13/17 14:57 Tylenol 325 Mg PO 11/13/17 14:40 650 mg STAT ONE Administration Acetaminophen Confirm 11/13/17 14:49 Tylenol 325 Mg Administered 11/13/17 14:50 Dose 650 mg .ROUTE .STK-MED ONE Acetaminophen 650 mg 11/13/17 20:46 11/14/17 03:35 Tylenol 325 Mg G-TUBE 12/13/17 20:45 650 mg Q4H PRN PRN Administration PAIN AND/OR FEVER Hydrocodone Bitart/Acetaminophen 1 tab 11/13/17 20:55 Caret 7.5/325 Mg Tab G-TUBE 11/18/17 20:54 Q6H PRN PRN PAIN Cholestyramine Resin 4 gm 11/14/17 10:00 11/16/17 09:40 Questran Light 4 Gm Packet G-TUBE 12/14/17 09:59 4 gm DAILY ABIOLA Administration Ferrous Sulfate 325 mg 11/13/17 22:00 11/13/17 22:41 Feosol 325 Mg PEG 12/13/17 21:59 325 mg TID ABIOLA Administration Ferrous Sulfate 330 mg 11/14/17 10:00 11/16/17 15:00 Ferrous Sulfate (Iron) 220 Mg/5 Ml G-TUBE 12/14/17 09:59 330 mg TID ABIOLA Administration Furosemide 20 mg 11/15/17 22:12 11/15/17 22:34 Lasix 20 Mg/2 Ml IV 11/15/17 22:13 Not Given ONCE ONE Furosemide Confirm 11/14/17 22:17 Lasix 20 Mg/2 Ml Administered 11/14/17 22:18 Dose 20 mg .ROUTE .STK-MED ONE Sodium Chloride 500 mls @ 999 mls/hr 11/13/17 14:34 11/13/17 15:45 Sodium Chloride 0.9% 1000 Ml IV 11/13/17 15:04 Infused .Q31M STA Infusion Sodium Chloride Confirm 11/13/17 14:49 Sodium Chloride 0.9% 1000 Ml Administered 11/13/17 14:50 Dose 1,000 mls @ ud .ROUTE .STK-MED ONE Piperacillin Sod/Tazobactam Sod 3.375 gm in 100 mls @ 200 mls/hr 11/13/17 16: 30 11/13/17 16:43 Zosyn 3.375gm/100 Ml D5w IV 11/13/17 16:59 200 mls/hr STAT STA 200 mls/hr Administration Piperacillin Sod/Tazobactam Sod Confirm 11/13/17 16:39 Zosyn 3.375gm/100 Ml D5w Administered 11/13/17 16:40 Dose 3.375 gm in 100 mls @ ud IV .STK-MED ONE Piperacillin Sod/Tazobactam Sod 3.375 gm in 100 mls @ 200 mls/hr 11/13/17 18: 00 11/14/17 11:05 Zosyn 3.375gm/100 Ml D5w IV 12/13/17 17:59 200 mls/hr Q6HT ABIOLA Administration Sodium Chloride 1,000 mls @ 100 mls/hr 11/13/17 17:54 11/15/17 16:18 Sodium Chloride 0.9% 1000 Ml IV 12/13/17 17:53 100 mls/hr .Q10H ABIOLA Administration Piperacillin Sod/Tazobactam Sod Confirm 11/14/17 06:04 Zosyn 3.375gm/100 Ml D5w Administered 11/14/17 06:05 Dose 3.375 gm in 100 mls @ ud IV .STK-MED ONE Sodium Chloride Confirm 11/14/17 06:35 Sodium Chloride 0.9% 1000 Ml Administered 11/14/17 06:36 Dose 1,000 mls @ ud .ROUTE .STK-MED ONE Piperacillin Sod/Tazobactam 100 mls @ 200 mls/hr 11/14/17 18:00 11/15/17 05: 25 Sod 3.375 gm/ Sodium Chloride IV 12/14/17 17:59 200 mls/hr Q6HT ABIOLA Administration Levofloxacin/Dextrose 500 mg in 100 mls @ 100 mls/hr 11/14/17 16:00 11/16/17 09:40 Levofloxacin 500mg/100ml D5w IV 12/14/17 15:59 100 mls/hr Q24H10 ABIOLA Administration Albumin Human 50 mls @ 50 mls/hr 11/16/17 18:00 11/16/17 21:55 Alburx 25% 50ml Vial IV 11/16/17 19:59 50 mls/hr Q1H ABIOLA Administration Insulin Aspart 7.5 unit 11/14/17 10:10 11/14/17 10:42 Novolog Insulin SQ 11/14/17 10:11 7.5 unit ONCE ONE Administration Insulin Glargine 20 unit 11/14/17 11:00 11/15/17 10:52 Lantus Insulin SQ 12/14/17 10:59 20 unit BID ABIOLA Administration Ondansetron HCl 4 mg 11/13/17 14:34 11/13/17 14:58 Zofran 4 Mg/2 Ml Vial IV 11/13/17 14:35 4 mg STAT ONE Administration Ondansetron HCl Confirm 11/13/17 14:49 Zofran 4 Mg/2 Ml Vial Administered 11/13/17 14:50 Dose 4 mg .ROUTE .STK-MED ONE Intake & Output (Last 24 hours) 11/15/17 11/16/17 11/17/17 11/18/17 11:59 11:59 11:59 11:59 Intake Total 3790 3804 3073 120 Output Total 1000 1150 950 650 Balance 2790 2654 2123 -530 Weight 60.3 kg Laboratory Results (Last 24 hours) 11/17/17 11/17/17 05:23 05:23 WBC 12.2 H RBC 2.66 L Hgb 7.6 L Hct 26.6 L MCV 100.0 MCH 28.5 MCHC 28.6 L RDW 16.1 H Plt Count 144 L MPV 14.0 H Sodium 146 H Potassium 4.8 Chloride 115 H Carbon Dioxide 27 Anion Gap 9.2 BUN 33 H Creatinine 0.58 Estimated GFR > 60.0 Glucose 244 H Calcium 7.7 L Magnesium 2.9 H Total Bilirubin < 0.10 L AST 8 L ALT 7 Alkaline Phosphatase 86 Serum Total Protein 5.4 L Albumin 2.6 L Orders (Last 24 hours) Category Date Time Status CBC Stat Lab 11/17/17 05:23 Completed CMP AM.LAB Lab 11/17/17 05:23 Completed MAG [MAGNESIUM] AM.LAB Lab 11/17/17 05:23 Completed Albumin Human 25% [AlbuRx 25% 50ML VIAL] 50 ml Med 11/16/17 18:00 Discontinued IV Q1H Ceftriaxone 1 GM/50 ML PREMIX* [ROCEPHIN 1 Gm-D5w 50 ml Med 11/16/17 18:00 Active Bag] 1 g in 50 ml IV DAILY Ergocalciferol (Vitamin D2) [Vitamin D2] Med 11/19/17 10:00 Active 50,000 unit G-TUBE Q7D Lactobacillus Acidophilus [Acidophilus TABLET] Med 11/16/17 22:00 Active 1 tab PO BID NaCl 0.45% 1000 ml [Sodium Chloride 0.45% 1000 ML] 1, Med 11/16/17 16:30 Active 000 ml IV 50 mls/hr (2) Hypernatremia Current Visit: Yes Status: Acute Onset Date: ~11/14/17 (3) Type 2 diabetes mellitus Current Visit: No Status: Chronic - Discharge Discharge Date: 11/17/17 Disposition: DC TO [facility] Condition: Stable Prescriptions: New Cephalexin 250 mg/5 ml Susp [Keflex 250 mg/5 ml Susp] 250 mg G-TUBE TID 5 Days #1 bottle Vancomycin HCl [Vancomycin 25Mg/ml Oral Solution Compound Kit] 125 mg G-TUBE QID 7 Days #1 bottle Continue Montelukast Sodium [Singulair] 10 mg G-TUBE DAILY Insulin Aspart [NovoLOG Insulin] 1 unit SQ UD Simvastatin 10 mg G-TUBE HS Metoprolol Tartrate 25 mg [Lopressor 25MG Tab] 25 mg G-TUBE BID Entacapone 200 mg [Comtan 200 MG] 200 mg G-TUBE BID Carbidopa/Levodopa [Carbidopa-Levo 25-100 Tab] 1 each G-TUBE BID Aspirin 81 mg G-TUBE DAILY Gabapentin [Neurontin] 100 mg G-TUBE HS Acetaminophen 325 mg [Tylenol 325 mg] 650 mg G-TUBE Q4HPRN PRN PRN Reason: Pain And/Or Fever Glucagon 1 mg [GlucaGen 1 MG] 1 mg IM UD PRN PRN Reason: hypoglycemia Insulin Detemir [Levemir] 20 unit SQ BID Ferrous Sulfate 325 mg G-TUBE TID Hydrocodone Bit/Acetaminophen [Caret 7.5-325 Tablet] 1 ea G-TUBE Q4HPRN PRN PRN Reason: Pain Ergocalciferol (Vitamin D2) [Vitamin D2] 50,000 unit G-TUBE Q7D Discontinued Cholestyramine/Aspartame [Questran Light Packet] 4 gm G-TUBE DAILY Additional Instructions: HALF-WAY ORDERS: SEE ATTACHED MED LIST FOR CURRENT MED ORDERS FLUSH GTUBE WITH 300CC WATER EVERY 6 HOURS KEEP HOB UP 45 DEGREES AT ALL TIMES CONTACT ISOLATION FOR CDIFF COLITIS SKIN CARE TUBE FEEDING PREVIOUSLY ORDERED PT/OT EVAL AND TREAT CONTINUE WOUND CARE PREVIOUSLY ORDERED Follow up with: CUAUHTEMOC DE LA GARZA [Primary Care Provider] - 1 Week
[2017-11-17 15:16] LABS: Slide Review YES
[2017-11-19] MEDS ORDERED: VITAMIN D2 G-TUBE SCH (10:00)
== END 2017-11-17 14:15 | DRG 640 ==
LOC: ED 14:14 → MED SURG 17:48 → OBSVTOIN 11-14 03:58
PROVIDERS: ADMIT General Practice; ATTEND General Practice
DX: E87.0 Hyperosmolality and hypernatremia (principal); J69.0 Pneumonitis due to inhalation of food and vomit; I63.8 Other cerebral infarction; L89.154 Pressure ulcer of sacral region, stage 4; R91.8 Other nonspecific abnormal finding of lung field; I13.0 Hypertensive heart and chronic kidney disease with heart failure and stage 1 through stage 4 chronic kidney disease, or unspecified chronic kidney disease; A04.72 Enterocolitis due to Clostridium difficile, not specified as recurrent; I10 Essential (primary) hypertension; N18.2 Chronic kidney disease, stage 2 (mild); B96.20 Unspecified Escherichia coli [E. coli] as the cause of diseases classified elsewhere; R53.83 Other fatigue; I25.10 Atherosclerotic heart disease of native coronary artery without angina pectoris; E78.00 Pure hypercholesterolemia, unspecified; G20 Parkinson's disease; M54.5 Low back pain; G89.29 Other chronic pain; F45.42 Pain disorder with related psychological factors; F02.80 Dementia in other diseases classified elsewhere, unspecified severity, without behavioral disturbance, psychotic disturbance, mood disturbance, and anxiety; R09.02 Hypoxemia; J44.9 Chronic obstructive pulmonary disease, unspecified; Z86.73 Personal history of transient ischemic attack (TIA), and cerebral infarction without residual deficits; I50.9 Heart failure, unspecified; I48.91 Unspecified atrial fibrillation; M19.90 Unspecified osteoarthritis, unspecified site; D64.9 Anemia, unspecified; E11.9 Type 2 diabetes mellitus without complications; Z79.4 Long term (current) use of insulin; N39.0 Urinary tract infection, site not specified; F41.9 Anxiety disorder, unspecified; Z79.899 Other long term (current) drug therapy; Z93.1 Gastrostomy status
CPT/HCPCS: 36000; 36415; 51701; 70450; 71045; 80048; 80053; 81000; 82947; 83605; 83690; 83735; 83880; 84134; 84484; 85025; 85027; 87040; 87077; 87086; 87186; 87493; 93005; 94760; 96360; 96365; 96374; 97161; 99285; G0378; J0696; J1650; J1940; J1956; J2405; J2543; P9047; A9270-GY